=== PATIENT | female | born 1935 | race Caucasian/White ===

== ENCOUNTER 2019-11-03 09:59 | Inpatient (IN) | payer MEDICARE, MEDICAID ==
[~2019-11-03] VITALS: Ht 154.9 cm; Wt 90.7 kg
[2019-11-03] MEDS ORDERED: ACETAMINOPHEN ES 500 MG TABLET ONE (10:21)
--- NOTE | 2019-11-03 10:27 | NUR ---
[place]39, from home, generalized weakness, was in the bathroom and couldn't get up, BS 240. On room air, breathing evenly and unlabored. connected to the monitor and pulse ox. kept comfortable, will continue to monitor accordingly.
--- NOTE | 2019-11-03 10:28 | NUR ---
urine collected and sent to lab
[2019-11-03] MEDS ORDERED: ACETAMINOPHEN ES 500 MG TABLET PO ONE (10:30)
[2019-11-03] MEDS ORDERED: IV NS 0.9% 500 ML BAG IV ONE (10:30)
[2019-11-03 10:31] LABS: BASOPHILS % (AUTO) 0.1 % (0.0-2.0); HEMATOCRIT 38 % (33-45); HEMOGLOBIN 12.3 g/dL (11.5-14.8); LYMPHOCYTES # (AUTO) 0.5 /CMM (0.8-4.8); MEAN CORPUSCULAR HGB CONC 32 g/dl (31.0-36.0); MEAN CORPUSCULAR VOLUME 91 fL (82-100); MONOCYTES % (AUTO) 3.9 % (2.0-12.0); NEUTROPHILS # (AUTO) 24.9 /CMM (1.8-8.9); PLATELET COUNT (AUTO) 285 /CMM (150-450); RED BLOOD CELL COUNT(AUTO) 4.24 MIL/uL (4.0-5.2); WHITE BLOOD COUNT (AUTO) 26.5 K/uL (4.3-11.0)
[2019-11-03 10:35] LABS: CALCIUM, SERUM 9.8 mg/dL (8.5-10.1); CARBON DIOXIDE 24 mmol/L (21-32); CHLORIDE 98 mmol/L (98-107); CREATININE 1.3 mg/dL (0.6-1.3); GLUCOSE 329 mg/dL (74-106); SODIUM SERUM 135 mmol/L (136-145); UREA NITROGEN, BLOOD 28 mg/dL (7-18)
[2019-11-03 10:41] LABS: APPEARANCE,URINE Clear (CLEAR); BILIRUBIN,URINE Negative (NEGATIVE); BLOOD, URINE Large Ery/uL (NEGATIVE); COLOR,URINE Yellow (YELLOW); KETONES,URINE Negative (NEGATIVE); LEUKOCYTE ESTERASE ,URINE Negative (NEGATIVE); NITRITE, URINE Negative (NEGATIVE); PROTEIN,URINE >=300 mg/dl (NEGATIVE); UGLUCOSE 500 MG/DL mg/dL (NEGATIVE); UROBILINOGEN,URINE 0.2 EU/dL (0.2)
[2019-11-03] MEDS ORDERED: CELE-85 PO (10:45)
[2019-11-03] MEDS ORDERED: EZET10TA32 PO (10:45)
[2019-11-03] MEDS ORDERED: FAMO40TA7 PO (10:45)
[2019-11-03] MEDS ORDERED: MONT10TA22 PO (10:45)
[2019-11-03] MEDS ORDERED: ATOR40TA PO (10:45)
[2019-11-03] MEDS ORDERED: INSU100V7 SQ (10:45)
[2019-11-03] MEDS ORDERED: SPIR25TA6 PO (10:45)
[2019-11-03] MEDS ORDERED: COLC0.6T67 PO (10:45)
[2019-11-03] MEDS ORDERED: DICY20TA11 PO (10:45)
[2019-11-03] MEDS ORDERED: MECL-159 PO (10:45)
[2019-11-03] MEDS ORDERED: METO25TA4 PO (10:45)
[2019-11-03] MEDS ORDERED: INSU100I4 SQ (10:45)
[2019-11-03] MEDS ORDERED: OLME1TAB84 PO (10:45)
[2019-11-03] MEDS ORDERED: LIPA1CAP15 PO (10:45)
[2019-11-03] MEDS ORDERED: OMEG-72 PO (10:45)
[2019-11-03] MEDS ORDERED: LINA290C PO (10:45)
[2019-11-03] MEDS ORDERED: MYRBETRIQ PO (10:45)
[2019-11-03] MEDS ORDERED: ASPI-1152 PO (10:45)
[2019-11-03] MEDS ORDERED: FLUT1DIS3 INH (10:45)
[2019-11-03] MEDS ORDERED: OMEP1CAP25 PO (10:45)
[2019-11-03] MEDS ORDERED: GABA-534 PO (10:45)
[2019-11-03] MEDS ORDERED: ANAS1TAB8 PO (10:45)
[2019-11-03] MEDS ORDERED: MEMA10TA56 PO (10:45)
[2019-11-03] MEDS ORDERED: HYDR10SY16 PO (10:45)
[2019-11-03] MEDS ORDERED: HYDR-3980 PO (10:45)
[2019-11-03] MEDS ORDERED: LORA10TA7 PO (10:45)
[2019-11-03 10:47] LABS: BACTERIA,URINE Few /HPF (None Seen); SQUAMOUS EPITHELIAL CELL,UR Moderate /HPF (None Seen)
[2019-11-03 10:47] LABS: ALANINE AMINOTRANSFERASE 28 U/L (12-78); ALBUMIN 3.3 g/dL (3.4-5.0); ALKALINE PHOSPHATASE 88 U/L (46-116); ASPARTATE AMINOTRANSFERASE 40 U/L (15-37); BILIRUBIN,DIRECT 0.2 mg/dL (0.0-0.2); BILIRUBIN,TOTAL 1.1 mg/dL (0.2-1.0); TOTAL PROTEIN, SERUM 8.8 g/dL (6.4-8.2)
[2019-11-03] MEDS ORDERED: CEFTRIAXONE 1GM BAG (ER ONLY) 50 ML IV ONE ×2 (10:47→11:00)
--- NOTE | 2019-11-03 10:47 | NUR ---
PT IS GOING TO BED 307-1.
--- NOTE | 2019-11-03 11:29 | NUR ---
report given to Cash HUSAIN for sourav.
[2019-11-03] MEDS ORDERED: IV NS 0.9% 1,000 ML BAG IV ONE (11:30)
--- NOTE | 2019-11-03 12:57 | NUR ---
wheeled patient via gurney accompanied by RN and EMT in no distress. RN at bedside to assume care.
[2019-11-03] MEDS ORDERED: MAG HYDROX/AL HYDROX/SIMETH 30 ML UDC PO PRN (13:00)
[2019-11-03] MEDS ORDERED: hydrOXYzine HCL SYRUP 10 MG/5 ML UDC PO PRN (13:00)
[2019-11-03] MEDS ORDERED: DEXTROSE 50%-WATER 50 ML DISP.SYRIN IV PRN (13:00)
[2019-11-03] MEDS ORDERED: MORPHINE SULFATE INJ 2 MG/ML DISP.SYRIN IV PRN (13:00)
[2019-11-03] MEDS ORDERED: HYDROCODONE/APAP 5/325MG 1 EACH TABLET PO PRN (13:00)
[2019-11-03] MEDS ORDERED: ONDANSETRON HCL/PF 4 MG/2 ML VIAL IVP PRN (13:00)
[2019-11-03] MEDS ORDERED: MAGNESIUM HYDROXIDE 30 ML UDC PO PRN (13:00)
[2019-11-03] MEDS ORDERED: CLONIDINE HCL 0.1 MG TABLET PO PRN (13:00)
[2019-11-03] MEDS ORDERED: ZOLPIDEM TARTRATE 5 MG TABLET PO PRN (13:00)
--- NOTE | 2019-11-03 13:00 | NUR ---
RECEIVED PATIENT FROM ER VIA [facility] [employer]. PATIENT IS A/OX3, HEBREW SPEAKING. NOT IN ANY FORM OF DISTRESS. NO SOB. DENIED PAIN OR DISCOMFORT AT THIS TIME. IV ACCESS ON RIGHT AC GAUGE 18, INTACT AND PATENT. ON TELEMONITOR, ST 109 WITH PVC RUN. BELONGINGS CHECKED BY JIMMY WEI. SKIN ASSESSMENT DONE, SACRUM IS INTACT, BLE CELLULITIS NOTED. PATIENT HAS LEFT PARTIAL MASTECTOMY. RIGHT BREASTFOLD AND RIGHT ABDOMINALFOLD REDNESS. PATIENT HAS RIGHT ARTIFICIAL EYE. SITUATED PATIENT IN THE ROOM. FAMILY AT BEDSIDE. INSTRUCTED PATIENT TO CALL FOR ASSISTANCE. SKIN PHOTOS TAKEN. BED IN LOW/LOCKED POSITION, SIDERAILS UPX2, CALL LIGHT IN REACH. BED ALARM ON. WILL CONT TO MONITOR ACCORDINGLY
[2019-11-03 13:18] VITALS: BP 119/96
[2019-11-03] MEDS ORDERED: FEE PK DOSING 1 MIN EA MC ONE (13:28)
--- NOTE | 2019-11-03 13:51 | NUR ---
RN NOTES: FAMILY CONTACT TANK [phone] GRAND DAUGHTER LIANA [phone] SON
[2019-11-03] MEDS: BLOOD SUGAR DIAGNOSTIC 1 EACH STRIP VI SCH ×3 (13:55→22:21)
[2019-11-03] MEDS: IV NS 0.9% 1,000 ML IV PRN (14:25)
[2019-11-03] MEDS: ACETAMINOPHEN 325 MG TABLET PO PRN ×2 (14:45→21:27)
[2019-11-03] MEDS ORDERED: VANCOMYCIN 1.25 GM in IV D5W 250 ML IV SCH (15:00)
[2019-11-03 16:00] VITALS: BP 137/51
[2019-11-03] MEDS: COLCHICINE 0.6 MG TABLET PO SCH (17:04)
[2019-11-03] MEDS: MEMANTINE HCL 5 MG TABLET PO SCH (17:04)
[2019-11-03] MEDS: MECLIZINE HCL 25 MG TABLET PO SCH (17:04)
[2019-11-03] MEDS: Z GUARD REMEDY 2 OZ OINT TP PRN (17:07)
[2019-11-03] MEDS: INSULIN REGULAR, HUMAN 100 UNIT/ML 3 ML VIAL SQ PRN (17:19)
[2019-11-03] MEDS ORDERED: PIPERACILLIN /TAZOBACTAM 2.25 G in IV D5W 50 ML IV SCH (18:00)
[2019-11-03] MEDS ORDERED: PIPERACILLIN /TAZOBACTAM 3.375 G in IV D5W 50 ML IV SCH (18:00)
--- NOTE | 2019-11-03 18:17 | NUR ---
PRELIMINARY FINDING OF DUPLEX VENOUS SHOWED POSITIVE FOR DVT AT LEFT CFV. RN ADVISED.
--- NOTE | 2019-11-03 19:18 | NUR ---
RN OPENING NOTES 1917 RECEIVED PATIENT IN BED, AWAKE. FAMILY AT BED SIDE. A/O X 3. LIBERIAN SPEAKING. NO CURRENT DISTRESS, NO SOB AT THIS TIME. DENIES PAIN OR DISCOMFORT AT THIS TIME. IV ACCESS ON RIGHT AC GAUGE 18, INTACT AND PATENT, IVF INFUSING, NO INFECTION/INFILTRATION NOTED. ON TELEMONITOR, ST 101. SAFETY PRECAUTIONS IMPLEMENTED; CALL LIGHT WITHIN REACH, BED LOWEST POSITION, BED LOCKED, BILATERAL UPPER SIDE RAILS UP. WILL CONTINUE TO MONITOR.
--- NOTE | 2019-11-03 19:28 | NUR ---
RN CLOSING NOTES PATIENT IN STABLE CONDITION. NO SIGNIFICANT CHANGE OF CONDITION DURING THE SHIFT. ALL NEEDS ATTENDED AND PROVIDED. ALL DUE MEDS GIVEN ORDERED. KEPT PATIENT SAFE AND COMFORTABLE. BED IN LOW/LOCKED POSITION. SIDERAILS UPX2, CALL LIGHT IN REACH. ENDORSED TO NIGHT RN FOR PETE.
[2019-11-03 20:00] VITALS: BP 162/70
[2019-11-03] MEDS ORDERED: ENOXAPARIN SODIUM 30 MG/0.3 ML DISP.SYRIN SQ SCH (21:00)
[2019-11-03] MEDS ORDERED: ENOXAPARIN SODIUM 40 MG/0.4 ML DISP.SYRIN SQ SCH (21:00)
[2019-11-03] MEDS: METOPROLOL SUCCINATE 25 MG TAB.SR.24H PO SCH (21:34)
[2019-11-03] MEDS: MONTELUKAST SODIUM (10MG) 10 MG TABLET PO SCH (21:34)
[2019-11-03] MEDS: EZETIMIBE 10 MG TABLET PO SCH (21:34)
[2019-11-03] MEDS: FAMOTIDINE (20 MG) 20 MG TABLET PO SCH (21:35)
[2019-11-03] MEDS: GABAPENTIN 300 MG CAPSULE PO SCH (21:37)
[2019-11-03] MEDS: CEFEPIME 1 GM in IV D5W 50 ML IV SCH (21:49)
[2019-11-03] MEDS: *INSULIN REGULAR(HUMULIN R)HUM 100 UNIT/ML VIAL SQ PRN (22:26)
[2019-11-03] MEDS: ENOXAPARIN SODIUM 40 MG/0.4 ML DISP.SYRIN SQ SCH (23:01)
[2019-11-04] VITALS: BP 132/61
[2019-11-04 04:00] VITALS: BP 125/72
[2019-11-04] MEDS: IV NS 0.9% 1,000 ML IV PRN (04:01)
[2019-11-04] MEDS: *INSULIN REGULAR(HUMULIN R)HUM 100 UNIT/ML VIAL SQ PRN (06:33)
[2019-11-04 06:36] LABS: BASOPHILS % (AUTO) 0.2 % (0.0-2.0); HEMATOCRIT 35 % (33-45); HEMOGLOBIN 11.4 g/dL (11.5-14.8); LYMPHOCYTES # (AUTO) 1.2 /CMM (0.8-4.8); LYMPHOCYTES % (AUTO) 6.5 % (20.0-44.0); MEAN CORPUSCULAR HGB CONC 33 g/dl (31.0-36.0); MEAN CORPUSCULAR VOLUME 90 fL (82-100); MONOCYTES # (AUTO) 0.8 /CMM (0.1-1.30); MONOCYTES % (AUTO) 4.6 % (2.0-12.0); NEUTROPHILS # (AUTO) 15.7 /CMM (1.8-8.9); NEUTROPHILS % (AUTO) 88.7 % (43.0-81.0); PLATELET COUNT (AUTO) 224 /CMM (150-450); RED BLOOD CELL COUNT(AUTO) 3.88 MIL/uL (4.0-5.2); WHITE BLOOD COUNT (AUTO) 17.7 K/uL (4.3-11.0)
--- NOTE | 2019-11-04 06:53 | NUR ---
RN CLOSING NOTES PATIENT IS CURRENTLY ASLEEP, RESTING COMFORTABLY, EASILY AROUSABLE TO VOICE. PATIENT IN STABLE CONDITION. ALL DUE MEDICATIONS GIVEN ORDERED. ALL NEEDS ATTENDED AND PROVIDED. NO SIGNS OF FACIAL GRIMACING INDICATING PAIN OR DISCOMFORT AT THIS TIME. CURRENT TELEMONITOR READING SR 80. SAFETY PRECAUTIONS IMPLEMENTED; CALL LIGHT WITHIN REACH, BED LOWEST POSITION, BED LOCKED, BILATERAL UPPER SIDE RAILS UP. WILL CONTINUE TO MONITOR AND THEN WILL ENDORSE TO DAY SHIFT NURSE FOR CONTINUITY OF CARE.
[2019-11-04 07:05] LABS: THYROID STIMULATING HORMONE 1.025 uIU/mL (0.358-3.74)
[2019-11-04 07:10] LABS: ALBUMIN 2.4 g/dL (3.4-5.0); CALCIUM, SERUM 8.9 mg/dL (8.5-10.1); CREATININE 1.2 mg/dL (0.6-1.3); MAGNESIUM 1.7 mg/dL (1.8-2.4); PHOSPHORUS 2.7 mg/dL (2.5-4.9); POTASSIUM 4.2 mmol/L (3.5-5.1); TOTAL PROTEIN, SERUM 7.5 g/dL (6.4-8.2)
--- NOTE | 2019-11-04 07:11 | NUR ---
PIT FURNACE OPERATOR OPENING NOTE RECEIVED REPORT FROM [facility] SHIFT NURSE. PT AWAKE IN BED, ALERT AND ORIENTED X 1, NEPALESE SPEAKING, ON ROOM AIR, SATURATING WELL, RESPIRATIONS EVEN AND UNLABORED, NO SIGNS OF RESPIRATORY DISTRESS NOTED. ON TELE MONITOR SINUS RHYTHM HR 76. CID CATHETER INTACT, PATENT, DRAINING CLEAR YELLOW URINE. IV SITE ON RIGHT FOREARM G22 INTACT, PATENT, NS INFUSING 80CC/HR, NO SIGNS OF INFILTRATION NOTED. BED IN LOW POSITION, LOCKED, CALL LIGHT WITHIN REACH. INTRODUCED SELF TO PT AND DISCUSSED PLAN OF CARE.
[2019-11-04] MEDS: BLOOD SUGAR DIAGNOSTIC 1 EACH STRIP VI SCH ×4 (07:38→22:28)
[2019-11-04] MEDS: PANTOPRAZOLE 40 MG TABLET.DR PO SCH (07:38)
[2019-11-04 08:00] VITALS: BP 166/80
[2019-11-04] MEDS: MEMANTINE HCL 5 MG TABLET PO SCH ×2 (08:27→16:54)
[2019-11-04] MEDS: COLCHICINE 0.6 MG TABLET PO SCH ×2 (08:27→16:54)
[2019-11-04] MEDS: ATORVASTATIN 40 MG TABLET PO SCH (08:27)
[2019-11-04] MEDS: LOSARTAN POTASSIUM 50 MG TABLET PO SCH (08:27)
[2019-11-04] MEDS: MECLIZINE HCL 25 MG TABLET PO SCH ×2 (08:28→16:54)
[2019-11-04] MEDS: METOPROLOL SUCCINATE 25 MG TAB.SR.24H PO SCH ×2 (08:28→22:21)
[2019-11-04] MEDS: HYDROCHLOROTHIAZIDE 25 MG TABLET PO SCH (08:28)
[2019-11-04] MEDS: SPIRONOLACTONE 25 MG TABLET PO SCH (08:28)
[2019-11-04] MEDS: ACETAMINOPHEN 325 MG TABLET PO PRN ×2 (08:28→19:38)
--- NOTE | 2019-11-04 08:28 | NUR ---
Oral temperature 101.3 Administered Tylenol 650mg PO at 08:28, cooling measured initiated.
[2019-11-04] MEDS: ANASTROZOLE 1 MG TABLET PO SCH (08:29)
[2019-11-04] MEDS: ASPIRIN EC 81 MG TABLET.DR PO SCH (08:35)
[2019-11-04] MEDS: ENOXAPARIN SODIUM 40 MG/0.4 ML DISP.SYRIN SQ SCH ×2 (08:35→22:20)
[2019-11-04] MEDS: CEFEPIME 1 GM in IV D5W 50 ML IV SCH ×2 (08:47→22:18)
[2019-11-04] MEDS: FLUTICASONE/VILANTEROL 1 EACH BLST.W.DEV IH SCH (08:47)
[2019-11-04] MEDS: INSULIN GLARGINE, 100 UNIT/ML CARTRIDGE SQ SCH (08:51)
[2019-11-04] MEDS ORDERED: Linaclotide (Linzess) 290 MG PO SCH (09:00)
[2019-11-04] MEDS: Magnesium 1GM/D5W 100ML PREMIX 100 ML IV SCH ×2 (09:24→10:36)
--- NOTE | 2019-11-04 10:39 | NUR ---
WOUND CARE CONSULT: PT PRESENTS WITH REDNESS AND RASHES TO BREASTFOLDS, ABDOMINAL/GROIN FOLDS, REDNESS WITH EDEMA TO LOWER LEGS AND WOUNDS TO RT LOWER LEG, PRESENT ON ADMISSION. DR REYNOLDS AWARE OF DPM CONSULT REQUEST. RECOMMENDATIONS MADE FOR SKIN PROTECTION AND CARE. DISCUSSED WITH NURSING STAFF. DEFER TO DPM FOR LOWER EXTREMITIES. WILL SEE PRN. RODRIGUEZ IN AGREEMENT WITH PLAN OF CARE. PT ON [facility] BED. Addendum: 11/04/19 at 1041 by MARGARET BENOIT WNDNU Amended: Links added.
[2019-11-04] MEDS: FERROUS SULFATE (325 MG) 325 MG/TAB TABLET PO SCH ×2 (11:45→16:54)
[2019-11-04] MEDS: INSULIN REGULAR, HUMAN 100 UNIT/ML 3 ML VIAL SQ PRN ×2 (11:54→17:26)
[2019-11-04] MEDS: VANCOMYCIN 1 GM in IV D5W 250 ML IV SCH (15:15)
[2019-11-04 16:00] VITALS: BP 146/90
[2019-11-04] MEDS: CLOTRIMAZOLE 1% 15 GM TUBE TP SCH (17:14)
--- NOTE | 2019-11-04 18:25 | NUR ---
MS RN CLOSING NOTE PT AWAKE IN BED, ALERT AND ORIENTED X 4, SOMALI SPEAKING, ON 02 VIA NC 3L/MIN, SATURATING WELL, RESPIRATIONS EVEN AND UNLABORED, NO SIGNS OF RESPIRATORY DISTRESS NOTED. CID CATHETER INTACT, PATENT, DRAINING CLEAR YELLOW URINE. IV SITE ON RIGHT FOREARM G22 INTACT, PATENT, NS INFUSING 80CC/HR, NO SIGNS OF INFILTRATION NOTED. BED IN LOW POSITION, LOCKED, CALL LIGHT WITHIN REACH. PROVIDED SAFETY AND COMFORT TO PT THROUGHOUT SHIFT, ALL DUE MEDS GIVEN. WILL ENDORSE TO NOC SHIFT NURSE.
--- NOTE | 2019-11-04 19:48 | NUR ---
MS/RN OPENING NOTES RECEIVED PATIENT IN BED, HOB ELEVATED, ON OXYGEN VIA NC AT 3 LITER, INSTRUCTED, NOT TO REMOVE PATIENT OBSERVE HAVING FAST RESPIRATIONS, TEMPERATURE CHECK BY [facility]AIL PH[employer]Y TECHNICIAN ELEVATED OVER 100 DEG F, KEPT ROOM COOL AND PROVIDED COOLING MEASURES, TYLENO 650 MG PO GIVEN WITH APPLE SAUCE. WILL MONITOR .PATIENT WITH BLE CELLULITIS REF AND INFLAMED, WITH S/P DEBRIDEMENT ON LEFT 4TH TOE. CID DRAINING URINE. ON CARDIAC DIET REQUIRE TURNING AND REPOSITION. RFA GAUGE 22 WITH IV NS INFUSIN AT 80 CC/HR. ON IV ANTIBIOTIC THERAPY.
[2019-11-04 20:00] VITALS: BP 126/56
[2019-11-04 20:52] VITALS: BP 120/60
[2019-11-04] MEDS: FAMOTIDINE (20 MG) 20 MG TABLET PO SCH (22:19)
[2019-11-04] MEDS: MONTELUKAST SODIUM (10MG) 10 MG TABLET PO SCH (22:19)
[2019-11-04] MEDS: GABAPENTIN 300 MG CAPSULE PO SCH (22:20)
[2019-11-04] MEDS: EZETIMIBE 10 MG TABLET PO SCH (22:20)
--- NOTE | 2019-11-04 22:31 | NUR ---
temp 98.7 deg f
--- NOTE | 2019-11-05 03:08 | NUR ---
MS/RN NOTES RECEIVED ORDER FROM DR. WRIGHT FOR ALBUTEROL INHALER FOR PATIENT WITH WHEEZING AND DISCOMFORT. RT WAS MADE AWARE. WILL MONITOR.
[2019-11-05] MEDS ORDERED: ALBUTEROL FS 2.5 MG/0.5 ML VIAL.NEB NEB PRN (03:30)
[2019-11-05] MEDS: BLOOD SUGAR DIAGNOSTIC 1 EACH STRIP VI SCH ×4 (05:56→22:31)
[2019-11-05 06:54] LABS: BASOPHILS % (AUTO) 0.4 % (0.0-2.0); EOSINOPHILS % (AUTO) 1.8 % (0.0-6.0); HEMATOCRIT 31 % (33-45); HEMOGLOBIN 10.2 g/dL (11.5-14.8); LYMPHOCYTES # (AUTO) 1.6 /CMM (0.8-4.8); LYMPHOCYTES % (AUTO) 11.9 % (20.0-44.0); MEAN CORPUSCULAR HGB CONC 33 g/dl (31.0-36.0); MEAN CORPUSCULAR VOLUME 89 fL (82-100); MONOCYTES # (AUTO) 0.9 /CMM (0.1-1.30); NEUTROPHILS # (AUTO) 10.6 /CMM (1.8-8.9); NEUTROPHILS % (AUTO) 78.9 % (43.0-81.0); PLATELET COUNT (AUTO) 190 /CMM (150-450); RED BLOOD CELL COUNT(AUTO) 3.47 MIL/uL (4.0-5.2); WHITE BLOOD COUNT (AUTO) 13.5 K/uL (4.3-11.0)
--- NOTE | 2019-11-05 06:58 | NUR ---
MS/RN CLOSING NOTES PATIENT IN BED, HOB ELEVATE, ON OXYGEN VIA NASAL CANULAAT 2 LITER, PATIENT WITH NEEDED BREATHING TX FOR WHEEZING. SKIN WARM TO TOUCH. NO GRIMACE OR GUARDING, KEPT COMFORTABLE AND WARM, IV FLUIDS TO HOLD PATIENT HAVE NOTED WHEEZING MD AWARE, EDEMA ON BUE AND BLE. REQUIRE EXTENSIVE ASSISTANCE FOR SAFETY. WILL ENDORSE TO AM RN FOR PETE.
[2019-11-05 07:06] LABS: CALCIUM, SERUM 8.4 mg/dL (8.5-10.1); CREATININE 1.3 mg/dL (0.6-1.3); POTASSIUM 3.5 mmol/L (3.5-5.1)
[2019-11-05 08:00] VITALS: BP 131/82
[2019-11-05] MEDS: INSULIN GLARGINE, 100 UNIT/ML CARTRIDGE SQ SCH (10:36)
[2019-11-05] MEDS: ENOXAPARIN SODIUM 40 MG/0.4 ML DISP.SYRIN SQ SCH ×2 (10:44→20:33)
[2019-11-05] MEDS: FLUTICASONE/VILANTEROL 1 EACH BLST.W.DEV IH SCH (10:53)
[2019-11-05] MEDS: ATORVASTATIN 40 MG TABLET PO SCH (10:53)
[2019-11-05] MEDS: ASPIRIN EC 81 MG TABLET.DR PO SCH (10:54)
[2019-11-05] MEDS: METOPROLOL SUCCINATE 25 MG TAB.SR.24H PO SCH ×2 (10:54→20:32)
[2019-11-05] MEDS: FERROUS SULFATE (325 MG) 325 MG/TAB TABLET PO SCH ×2 (10:54→18:14)
[2019-11-05] MEDS: HYDROCHLOROTHIAZIDE 25 MG TABLET PO SCH (10:55)
[2019-11-05] MEDS: COLCHICINE 0.6 MG TABLET PO SCH ×2 (10:56→18:14)
[2019-11-05] MEDS: PANTOPRAZOLE 40 MG TABLET.DR PO SCH (10:56)
[2019-11-05] MEDS: ZINC SULFATE 220 MG CAPSULE PO SCH (10:56)
[2019-11-05] MEDS: ANASTROZOLE 1 MG TABLET PO SCH (10:56)
[2019-11-05] MEDS ORDERED: FUROSEMIDE 20 MG/2 ML VIAL IV ONE ×2 (11:00→11:30)
[2019-11-05] MEDS: MECLIZINE HCL 25 MG TABLET PO SCH ×2 (11:17→18:14)
[2019-11-05] MEDS: MEMANTINE HCL 5 MG TABLET PO SCH ×2 (11:17→18:14)
[2019-11-05] MEDS: IV NS 0.9% 1,000 ML IV PRN (11:29)
[2019-11-05] MEDS ORDERED: FUROSEMIDE 40 MG/4 ML VIAL IV ONE (11:30)
[2019-11-05] MEDS: CEFEPIME 1 GM in IV D5W 50 ML IV SCH ×2 (11:30→20:26)
[2019-11-05] MEDS: Z GUARD REMEDY 2 OZ OINT TP PRN (11:45)
[2019-11-05] MEDS: CLOTRIMAZOLE 1% 15 GM TUBE TP SCH ×2 (11:45→18:48)
--- NOTE | 2019-11-05 12:00 | NUR ---
per ju[facility] pharmacist,lasix 40 mg ordered instead of the 20 mg.so only 40 mg. given
[2019-11-05] MEDS: *INSULIN REGULAR(HUMULIN R)HUM 100 UNIT/ML VIAL SQ PRN ×3 (13:05→22:43)
--- NOTE | 2019-11-05 14:00 | NUR ---
pt. pulled out iv rt wrist,new start rt. forearm #20.
[2019-11-05] MEDS: SPIRONOLACTONE 25 MG TABLET PO SCH (15:00)
[2019-11-05 16:00] VITALS: BP 128/51
[2019-11-05] MEDS: VANCOMYCIN 1 GM in IV D5W 250 ML IV SCH (16:47)
[2019-11-05] MEDS: MUPIROCIN OINT 2% 22 GM TUBE TP SCH (17:07)
[2019-11-05] MEDS: LOSARTAN POTASSIUM 50 MG TABLET PO SCH (17:08)
[2019-11-05] MEDS ORDERED: FLUCONAZOLE (100 MG) 100 MG TABLET PO SCH (18:00)
--- NOTE | 2019-11-05 18:00 | NUR ---
Monika DOMINGUEZ FIRE BEHAVIOR ANALYST WELL BRANT CABRAL NURSE IN TO SEE PT. .PT. SEEMS BETTER AFTER LASIX IV,NIECE IN TO VISIT.
--- NOTE | 2019-11-05 19:30 | NUR ---
MS RN NOTES RECEIVED ON BED A/O X3,SCOTTISH SPEAKING,WITH LITTLE MAORI.NOTED ARTIFICIAL RIGHT EYE.S/P EXCISIONAL DEBRIDEMENT OF BLE CELLULITIS,OPEN TO AIR,ELEVATED ON PILLOWS BOTH FEET.IVF NS AT 80ML/HR RATE INFUSING ON RIGHT FOREARM,SITE PATENT.CID CATH IN PLACE DRAINING CLEAR YELLOW OUTPUT.CALL LIGHT IN REACH,NEEDS ANTICIPATED.
[2019-11-05 20:00] VITALS: BP 133/61
[2019-11-05] MEDS: FAMOTIDINE (20 MG) 20 MG TABLET PO SCH (22:30)
[2019-11-05] MEDS: EZETIMIBE 10 MG TABLET PO SCH (22:30)
[2019-11-05] MEDS: GABAPENTIN 300 MG CAPSULE PO SCH (22:30)
[2019-11-05] MEDS: MONTELUKAST SODIUM (10MG) 10 MG TABLET PO SCH (22:30)
--- NOTE | 2019-11-05 22:30 | NUR ---
MS RN NOTES ACCU-CHECK BLOOD SUGAR CHECK 132,COVERED WITH HUMULIN R 2 UNITS PER MODERATE SLIDING SCALE,SNACKS PROVIDED AT BEDSIDE.
--- NOTE | 2019-11-06 05:16 | NUR ---
MS RN NOTES C/O PAIN 6-7/10 ON PAIN SCALE VIA LEFT FOOT,MEDICATED WITH NORCO 5/325MG,1 TAB PO GIVEN WITH APPLE SAUCE,TAKEN WELL.NEGATIVE FOR ASPIRATION
--- NOTE | 2019-11-06 05:44 | NUR ---
MS RN NOTES ACCU-CHECK BLOOD SUGAR CHECK 101,NO INSULIN COVERAGE.
[2019-11-06] MEDS: BLOOD SUGAR DIAGNOSTIC 1 EACH STRIP VI SCH ×4 (05:51→21:14)
--- NOTE | 2019-11-06 06:19 | NUR ---
MS RN NOTES FAIRLY RESTED,WITH SLIGHT WHEEZING NOTED,IVF HOLD FOR AWHILE.PAIN MANAGEMENT EFFECTIVE.IN NO ACUTE DISTRESS.BILATERAL FOOT REMAINS SWOLLEN AND WITH REDNESS NOTED, ELEVATED ON PILLOWS.WILL ENDORSE TO DAY NURSE FOR PETE.
[2019-11-06 06:26] LABS: BASOPHILS % (AUTO) 0.3 % (0.0-2.0); EOSINOPHILS % (AUTO) 3.8 % (0.0-6.0); HEMATOCRIT 31 % (33-45); HEMOGLOBIN 10.3 g/dL (11.5-14.8); LYMPHOCYTES # (AUTO) 1.8 /CMM (0.8-4.8); LYMPHOCYTES % (AUTO) 19.1 % (20.0-44.0); MEAN CORPUSCULAR HGB CONC 33 g/dl (31.0-36.0); MEAN CORPUSCULAR VOLUME 89 fL (82-100); NEUTROPHILS # (AUTO) 6.5 /CMM (1.8-8.9); NEUTROPHILS % (AUTO) 66.8 % (43.0-81.0); PLATELET COUNT (AUTO) 209 /CMM (150-450); RED BLOOD CELL COUNT(AUTO) 3.52 MIL/uL (4.0-5.2); WHITE BLOOD COUNT (AUTO) 9.7 K/uL (4.3-11.0)
[2019-11-06 06:27] LABS: CALCIUM, SERUM 8.7 mg/dL (8.5-10.1); CREATININE 1.2 mg/dL (0.6-1.3); POTASSIUM 4.2 mmol/L (3.5-5.1)
--- NOTE | 2019-11-06 07:35 | NUR ---
MS RN NOTES RECEIVED PATIENT IN BED SLEEPING, AROUSED WHEN NAME CALLED. NO SOB OR DISCOMFORT NOTED AT THIS TIME. PER HAZARDOUS MATERIALS HANDLER NURSE IV FLUID STOPPED. CALL LIGHT WITHIN REACH. BED AT THE LOWEST POSITION. WILL CONTINUE TO MONITOR PATIENT.
[2019-11-06 08:00] VITALS: BP 107/51
[2019-11-06] MEDS ORDERED: FUROSEMIDE 20 MG/2 ML VIAL IV ONE (08:30)
[2019-11-06] MEDS: CEFEPIME 1 GM in IV D5W 50 ML IV SCH ×2 (08:43→21:08)
[2019-11-06] MEDS: PANTOPRAZOLE 40 MG TABLET.DR PO SCH (08:52)
[2019-11-06] MEDS: FLUTICASONE/VILANTEROL 1 EACH BLST.W.DEV IH SCH (08:53)
[2019-11-06] MEDS: SPIRONOLACTONE 25 MG TABLET PO SCH (08:55)
[2019-11-06] MEDS: ANASTROZOLE 1 MG TABLET PO SCH (08:56)
[2019-11-06] MEDS: MECLIZINE HCL 25 MG TABLET PO SCH ×2 (08:57→16:50)
[2019-11-06] MEDS: ASPIRIN EC 81 MG TABLET.DR PO SCH (08:58)
[2019-11-06] MEDS: COLCHICINE 0.6 MG TABLET PO SCH ×2 (08:59→16:50)
[2019-11-06] MEDS: HYDROCHLOROTHIAZIDE 25 MG TABLET PO SCH (09:00)
[2019-11-06] MEDS: LOSARTAN POTASSIUM 50 MG TABLET PO SCH (09:00)
[2019-11-06] MEDS: FERROUS SULFATE (325 MG) 325 MG/TAB TABLET PO SCH ×2 (09:01→16:50)
[2019-11-06] MEDS: ATORVASTATIN 40 MG TABLET PO SCH (09:02)
[2019-11-06] MEDS: MEMANTINE HCL 5 MG TABLET PO SCH ×2 (09:04→16:50)
[2019-11-06] MEDS: ZINC SULFATE 220 MG CAPSULE PO SCH (09:04)
[2019-11-06] MEDS: MUPIROCIN OINT 2% 22 GM TUBE TP SCH (09:05)
[2019-11-06] MEDS: Z GUARD REMEDY 2 OZ OINT TP PRN (09:05)
[2019-11-06] MEDS: INSULIN GLARGINE, 100 UNIT/ML CARTRIDGE SQ SCH (09:51)
[2019-11-06] MEDS: ENOXAPARIN SODIUM 40 MG/0.4 ML DISP.SYRIN SQ SCH (09:52)
[2019-11-06] MEDS: METOPROLOL SUCCINATE 25 MG TAB.SR.24H PO SCH ×2 (09:59→21:09)
[2019-11-06] MEDS: CLOTRIMAZOLE 1% 15 GM TUBE TP SCH ×2 (10:00→16:51)
[2019-11-06] MEDS: FUROSEMIDE 40 MG/4 ML VIAL IV SCH ×3 (12:35→19:35)
[2019-11-06] MEDS: RIVAROXABAN 15 MG TABLET PO SCH ×2 (12:44→19:36)
[2019-11-06] MEDS: INSULIN REGULAR, HUMAN 100 UNIT/ML 3 ML VIAL SQ PRN ×2 (12:54→17:30)
[2019-11-06 16:00] VITALS: BP 124/66
[2019-11-06] MEDS: VANCOMYCIN 1 GM in IV D5W 250 ML IV SCH (16:01)
[2019-11-06] MEDS: ACETAMINOPHEN 325 MG TABLET PO PRN ×2 (16:21→22:26)
--- NOTE | 2019-11-06 19:30 | NUR ---
MS RN NOTES PATIENT IN BED A/OX4 SPEAKS KOREAN/ENGLISH. NO PAIN OR SOB NOTED AT THIS TIME. ALL NEEDS ATTENDED. BED AT THE LOWEST POSITION LOCKED, CALL LIGHT WITHIN REACH. ENDORSED TO TITLE CURATOR NURSE FOR PETE.
[2019-11-06 20:00] VITALS: BP 132/49
[2019-11-06 20:01] VITALS: BP 132/49
[2019-11-06] MEDS: MONTELUKAST SODIUM (10MG) 10 MG TABLET PO SCH (21:10)
[2019-11-06] MEDS: GABAPENTIN 300 MG CAPSULE PO SCH (21:10)
[2019-11-06] MEDS: FAMOTIDINE (20 MG) 20 MG TABLET PO SCH (21:10)
[2019-11-06] MEDS: EZETIMIBE 10 MG TABLET PO SCH (21:10)
[2019-11-06] MEDS: VORICONAZOLE 200 MG TABLET PO SCH (21:10)
[2019-11-06] MEDS: *INSULIN REGULAR(HUMULIN R)HUM 100 UNIT/ML VIAL SQ PRN (21:44)
--- NOTE | 2019-11-06 22:26 | NUR ---
rn ms notes patient complaint of pain to ble , based on mendoza fernandez scale noted 5/10. patient requesting for pain medication , pt prefers tylenol. tylenol prn given and patient repositioned, will cont to monitor.
[2019-11-07] MEDS: BLOOD SUGAR DIAGNOSTIC 1 EACH STRIP VI SCH ×4 (06:00→22:33)
[2019-11-07] MEDS: INSULIN REGULAR, HUMAN 100 UNIT/ML 3 ML VIAL SQ PRN ×3 (06:03→17:25)
--- NOTE | 2019-11-07 06:21 | NUR ---
RN MS CLOSING NOTES PATIENT IN BED AWAKE ALERT AND ORIENTED X3-4, RESPIRATIONS EVEN AND UNLABORED WITH EQUAL RISE AND FALL OF CHEST, DENIES ANY PAIN OR DISCOMFORT AT THIS TIME, TYLENOL WAS EFFECTIVE FOR BLE PAIN. SLEPT WELL THROUGHOUT THE NIGHT. ON 2 L VIA NC TOLERATING WELL, CID CATHETER INTACT AND DRAINING, IV SITE TO RIGHT FA SL INTACT AND PATENT, NO REDNESS, NO INFILTRATION PRESENT, ALL DUE MEDS GIVEN ORDERED, NO ADVERSE REACTIONS PRESENT, CALL LIGHT KEPT WITHIN REACH, SAFETY PRECAUTIONS RENDERED, LOW BED AND LOCKED,BED ALARM FOR SAFETY ALL NEEDS ATTENDED AT THIS TIME, FLUIDS OFFERED THROUGHOUT SHIFT, WILL CONTINUE TO MONITOR AND ATTEND TO NEEDS AND ENDORSE TO NEXT SHIFT, REPOSITIONED Q2HR AND OFFLOADED BLE AND AFFECTED WOUND SITES. REMAINS COMFORTABLE AT THIS TIME, NO INSULIN NEEDED IN AM PER SLIDING SCALE.
[2019-11-07 06:24] LABS: BASOPHILS # (AUTO) 0.1 /CMM (0.0-0.2); BASOPHILS % (AUTO) 0.6 % (0.0-2.0); EOSINOPHILS % (AUTO) 4.8 % (0.0-6.0); HEMATOCRIT 33 % (33-45); LYMPHOCYTES # (AUTO) 1.3 /CMM (0.8-4.8); LYMPHOCYTES % (AUTO) 14.5 % (20.0-44.0); MEAN CORPUSCULAR HGB CONC 33 g/dl (31.0-36.0); MEAN CORPUSCULAR VOLUME 88 fL (82-100); MONOCYTES # (AUTO) 0.7 /CMM (0.1-1.30); MONOCYTES % (AUTO) 7.1 % (2.0-12.0); NEUTROPHILS # (AUTO) 6.7 /CMM (1.8-8.9); PLATELET COUNT (AUTO) 245 /CMM (150-450); WHITE BLOOD COUNT (AUTO) 9.1 K/uL (4.3-11.0)
[2019-11-07 07:01] LABS: CREATININE 1.3 mg/dL (0.6-1.3); MAGNESIUM 1.7 mg/dL (1.8-2.4); PHOSPHORUS 3.7 mg/dL (2.5-4.9); POTASSIUM 3.4 mmol/L (3.5-5.1)
[2019-11-07] MEDS ORDERED: FUROSEMIDE 20 MG/2 ML VIAL IV ONE ×2 (07:30→17:00)
[2019-11-07 08:00] VITALS: BP 125/55
[2019-11-07] MEDS ORDERED: MAGNESIUM OXIDE 400 MG TABLET PO ONE (08:00)
[2019-11-07] MEDS ORDERED: POTASSIUM CHLORIDE 20 MEQ TAB.PRT.SR PO ONE (08:00)
--- NOTE | 2019-11-07 08:00 | NUR ---
MS RN NOTES PATIENT IN BED RESTING NO SOB OR ACUTE DISTRESS NOTED. PATIENT WITH CID CATH. INTACT DRAINING YELLOW URIN. PATIENT VIETNAMESE/FINNISH SPEAKING. DENIES ANY PAIN. PERIPHERAL IV INTACT PATENT. BED IN LOW LOCKED POSITION. CALL LIGHT WITHIN REACH. DR. GOLDSTEIN AT BEDSIDE. WILL CONTINUE TO MONITOR.
[2019-11-07] MEDS: COLCHICINE 0.6 MG TABLET PO SCH ×2 (08:12→16:58)
[2019-11-07] MEDS: MEMANTINE HCL 5 MG TABLET PO SCH ×2 (08:12→16:58)
[2019-11-07] MEDS: MECLIZINE HCL 25 MG TABLET PO SCH ×2 (08:12→16:58)
[2019-11-07] MEDS: FERROUS SULFATE (325 MG) 325 MG/TAB TABLET PO SCH ×2 (08:12→16:58)
[2019-11-07] MEDS: PANTOPRAZOLE 40 MG TABLET.DR PO SCH (08:12)
[2019-11-07] MEDS: ASPIRIN EC 81 MG TABLET.DR PO SCH (08:12)
[2019-11-07] MEDS: METOPROLOL SUCCINATE 25 MG TAB.SR.24H PO SCH ×2 (08:13→21:59)
[2019-11-07] MEDS: ZINC SULFATE 220 MG CAPSULE PO SCH (08:13)
[2019-11-07] MEDS: RIVAROXABAN 15 MG TABLET PO SCH ×2 (08:16→16:59)
[2019-11-07] MEDS: ANASTROZOLE 1 MG TABLET PO SCH (08:23)
[2019-11-07] MEDS: VORICONAZOLE 200 MG TABLET PO SCH ×2 (08:24→21:59)
[2019-11-07] MEDS: FLUTICASONE/VILANTEROL 1 EACH BLST.W.DEV IH SCH (08:24)
[2019-11-07] MEDS: MUPIROCIN OINT 2% 22 GM TUBE TP SCH (08:36)
[2019-11-07] MEDS: CLOTRIMAZOLE 1% 15 GM TUBE TP SCH ×2 (08:36→17:03)
[2019-11-07] MEDS: CEFEPIME 1 GM in IV D5W 50 ML IV SCH ×2 (08:46→21:57)
[2019-11-07] MEDS: LOSARTAN POTASSIUM 50 MG TABLET PO SCH (08:46)
[2019-11-07] MEDS: SPIRONOLACTONE 25 MG TABLET PO SCH (08:46)
[2019-11-07] MEDS: HYDROCHLOROTHIAZIDE 25 MG TABLET PO SCH (08:47)
[2019-11-07] MEDS: INSULIN GLARGINE, 100 UNIT/ML CARTRIDGE SQ SCH (08:50)
[2019-11-07 09:18] LABS: BAND % (MANUAL) 2 % (0.0-5.0); EOSINOPHILS % (MANUAL) 3 % (0-4); LYMPHOCYTES % (MANUAL) 12 % (16-48); MONOCYTES % (MANUAL) 6 % (0-11.0); MYELOCYTES % 1 % (0-0); NEUTROPHILS % (MANUAL) 76 (42-76)
[2019-11-07] MEDS: ACETAMINOPHEN 325 MG TABLET PO PRN (10:57)
[2019-11-07] MEDS: VANCOMYCIN 1 GM in IV D5W 250 ML IV SCH (15:37)
[2019-11-07 16:00] VITALS: BP 149/69
--- NOTE | 2019-11-07 18:59 | NUR ---
MS RN NOTES PATIENT IN BED RESTING NO SOB OR ACUTE DISTRESS NOTED. ALL DUE MEDICATIONS PROVIDED. ALL NEEDS MET. NO ACUTE CHANGES NOTED DURING AM SHIFT. PATIENT WAS SEEN BY PT. TOLERATED WELL. PERIPHERAL IV INTACT PATENT. WILL ENDORSE CARE TO PM SHIFT.
--- NOTE | 2019-11-07 19:00 | NUR ---
RN MS OPENING NOTES RECEIVED PATIENT IN BED AWAKE ALERT AND ORIENTED X3-4, RESPIRATIONS EVEN AND UNLABORED WITH EQUAL RISE AND FALL OF CHEST, DENIES ANY PAIN OR DISCOMFORT AT THIS TIME, ON 2 L VIA NC TOLERATING WELL, CID CATHETER INTACT AND DRAINING, IV SITE TO RIGHT FA SL INTACT AND PATENT, NO REDNESS, NO INFILTRATION PRESENT, ORIENTED TO STAFF AND CALL LIGHT AND KEPT WITHIN REACH, SAFETY PRECAUTIONS RENDERED, LOW BED AND LOCKED,BED ALARM FOR SAFETY ALL NEEDS ATTENDED AT THIS TIME, FLUIDS OFFERED WILL CONTINUE TO MONITOR AND ATTEND TO NEEDS. bed side commode offered.
[2019-11-07 20:00] VITALS: BP_SYST 114; BP_SYST 153; BP_DIAS 65; BP_DIAS 76
--- NOTE | 2019-11-07 20:39 | NUR ---
rn ms notes patient sat up in commode unable to have bowel movement patient states " only have had very small one" requesting for medication to aid in moving bowels, prune juice offered and milk of magnesia offered and given, will continue to monitor for effectiveness.
[2019-11-07] MEDS: EZETIMIBE 10 MG TABLET PO SCH (21:59)
[2019-11-07] MEDS: GABAPENTIN 300 MG CAPSULE PO SCH (21:59)
[2019-11-07] MEDS: MONTELUKAST SODIUM (10MG) 10 MG TABLET PO SCH (21:59)
[2019-11-07] MEDS: FAMOTIDINE (20 MG) 20 MG TABLET PO SCH (21:59)
[2019-11-07] MEDS: *INSULIN REGULAR(HUMULIN R)HUM 100 UNIT/ML VIAL SQ PRN (22:35)
[2019-11-08] MEDS: PANTOPRAZOLE 40 MG TABLET.DR PO SCH (07:30)
[2019-11-08] MEDS: BLOOD SUGAR DIAGNOSTIC 1 EACH STRIP VI SCH ×3 (07:30→18:05)
[2019-11-08 07:54] LABS: CALCIUM, SERUM 8.8 mg/dL (8.5-10.1); CREATININE 1.1 mg/dL (0.6-1.3); POTASSIUM 3.9 mmol/L (3.5-5.1)
[2019-11-08 08:00] VITALS: BP 145/63
--- NOTE | 2019-11-08 08:20 | NUR ---
ms rn received patient ,on bed, awake,alert,oriented x3,not in any form of distress, respirations even and unlabored, no sob noted, lungs are diminished,abdomen soft,positive bowel sounds,denies pain at this time,all needs attended.
[2019-11-08 09:02] LABS: BASOPHILS # (AUTO) 0.2 /CMM (0.0-0.2); BASOPHILS % (AUTO) 1.2 % (0.0-2.0); HEMATOCRIT 34 % (33-45); HEMOGLOBIN 11.2 g/dL (11.5-14.8); LYMPHOCYTES # (AUTO) 1.8 /CMM (0.8-4.8); LYMPHOCYTES % (AUTO) 11.5 % (20.0-44.0); MEAN CORPUSCULAR HGB CONC 33 g/dl (31.0-36.0); MEAN CORPUSCULAR VOLUME 88 fL (82-100); MONOCYTES # (AUTO) 1.2 /CMM (0.1-1.30); NEUTROPHILS % (AUTO) 77.3 % (43.0-81.0); PLATELET COUNT (AUTO) 275 /CMM (150-450); RED BLOOD CELL COUNT(AUTO) 3.85 MIL/uL (4.0-5.2); WHITE BLOOD COUNT (AUTO) 15.6 K/uL (4.3-11.0)
[2019-11-08] MEDS ORDERED: FUROSEMIDE 20 MG/2 ML VIAL IV ONE (09:30)
--- NOTE | 2019-11-08 09:30 | NUR ---
ms biggs breakfast served,due meds given,tolerated well.
[2019-11-08] MEDS: CEFEPIME 1 GM in IV D5W 50 ML IV SCH (10:03)
[2019-11-08] MEDS: FLUTICASONE/VILANTEROL 1 EACH BLST.W.DEV IH SCH (10:03)
[2019-11-08] MEDS: SPIRONOLACTONE 25 MG TABLET PO SCH (10:04)
[2019-11-08] MEDS: ANASTROZOLE 1 MG TABLET PO SCH (10:05)
[2019-11-08] MEDS: MECLIZINE HCL 25 MG TABLET PO SCH ×2 (10:05→18:04)
[2019-11-08] MEDS: COLCHICINE 0.6 MG TABLET PO SCH ×2 (10:06→18:04)
[2019-11-08] MEDS: ASPIRIN EC 81 MG TABLET.DR PO SCH (10:06)
[2019-11-08] MEDS: LOSARTAN POTASSIUM 50 MG TABLET PO SCH (10:07)
[2019-11-08] MEDS: FERROUS SULFATE (325 MG) 325 MG/TAB TABLET PO SCH ×2 (10:07→18:04)
[2019-11-08] MEDS: HYDROCHLOROTHIAZIDE 25 MG TABLET PO SCH (10:07)
[2019-11-08] MEDS: MEMANTINE HCL 5 MG TABLET PO SCH ×2 (10:08→18:04)
[2019-11-08] MEDS: METOPROLOL SUCCINATE 25 MG TAB.SR.24H PO SCH (10:09)
[2019-11-08] MEDS: VORICONAZOLE 200 MG TABLET PO SCH (10:09)
[2019-11-08] MEDS: ZINC SULFATE 220 MG CAPSULE PO SCH (10:09)
[2019-11-08] MEDS: RIVAROXABAN 15 MG TABLET PO SCH ×2 (10:11→18:05)
[2019-11-08] MEDS: INSULIN GLARGINE, 100 UNIT/ML CARTRIDGE SQ SCH (10:13)
--- NOTE | 2019-11-08 11:20 | NUR ---
ms biggs was seen by dr. art cuevas/ orders made and carried out.
[2019-11-08] MEDS: INSULIN REGULAR, HUMAN 100 UNIT/ML 3 ML VIAL SQ PRN ×2 (13:02→18:09)
[2019-11-08 13:18] LABS: ABG BASE EXCESS 3.1 mmol/L; ABG OXYGEN SATURATION 92.1 % (92.0-98.5); ABG PCO2 33.8 mmHg (35.0-45.0); ABG PH 7.503 (7.350-7.450); AaDO2 46.3 mmHg; COHb 0.9 % (0.5-1.5); MetHb 0.3 % (0.0-1.5); SITE, ABG Right Brachial; VENT MODE, BG ROOM AIR
[2019-11-08] MEDS: MUPIROCIN OINT 2% 22 GM TUBE TP SCH (13:51)
[2019-11-08] MEDS: CLOTRIMAZOLE 1% 15 GM TUBE TP SCH ×2 (13:51→18:06)
[2019-11-08] MEDS: VANCOMYCIN 1 GM in IV D5W 250 ML IV SCH (15:36)
[2019-11-08 16:01] VITALS: BP 123/60
--- NOTE | 2019-11-08 16:06 | NUR ---
ms rn patient will be discharge today at [facility].
--- NOTE | 2019-11-08 16:07 | NUR ---
ms rn on bed, no distress noted.
[2019-11-08 19:30] VITALS: BP 133/60
--- NOTE | 2019-11-08 20:00 | NUR ---
MS RN NOTE: PATIENT READY FOR DISCHARGE TO [facility], EMT ARRIVE FOR [facility]. REPORT AND DISCHARGE PAPERWORK GIVEN TO EMT. PATIENT TO BE DISCHARGED WITH MIDLINE TO DAYSI AND CID CATHETER. REPORT GIVEN TO [facility] TO [facility] DURING DAYSHIFT. VITAL SIGNS STABLE, BELONGING WITH PATIENT. PATIENT OFF FLOOR IN STABLE CONDITION.
== END 2019-11-08 19:55 | DRG 853 ==
LOC: ER 10:06 → TELE 12:31 → MED 11-04 07:37
PROVIDERS: ADMIT Nurse Practitioner Acute Care
PROC: 0JBR0ZZ Excision of Left Foot Subcutaneous Tissue and Fascia, Open Approach (ICD-10-PCS; principal; 2019-11-03)
DX: A41.9 Sepsis, unspecified organism (principal); N17.0 Acute kidney failure with tubular necrosis; I50.33 Acute on chronic diastolic (congestive) heart failure; I82.412 Acute embolism and thrombosis of left femoral vein; D68.59 Other primary thrombophilia; E44.1 Mild protein-calorie malnutrition; E87.1 Hypo-osmolality and hyponatremia; L03.115 Cellulitis of right lower limb; L03.116 Cellulitis of left lower limb; B37.49 Other urogenital candidiasis; I13.0 Hypertensive heart and chronic kidney disease with heart failure and stage 1 through stage 4 chronic kidney disease, or unspecified chronic kidney disease; E10.22 Type 1 diabetes mellitus with diabetic chronic kidney disease; E10.42 Type 1 diabetes mellitus with diabetic polyneuropathy; E10.622 Type 1 diabetes mellitus with other skin ulcer; R65.20 Severe sepsis without septic shock; C50.919 Malignant neoplasm of unspecified site of unspecified female breast; I11.0 Hypertensive heart disease with heart failure; E78.5 Hyperlipidemia, unspecified; E83.42 Hypomagnesemia; E86.9 Volume depletion, unspecified; F03.90 Unspecified dementia, unspecified severity, without behavioral disturbance, psychotic disturbance, mood disturbance, and anxiety; K21.9 Gastro-esophageal reflux disease without esophagitis; L97.529 Non-pressure chronic ulcer of other part of left foot with unspecified severity; M20.42 Other hammer toe(s) (acquired), left foot; M20.41 Other hammer toe(s) (acquired), right foot; M10.9 Gout, unspecified; Z79.82 Long term (current) use of aspirin; Z79.899 Other long term (current) drug therapy; Z90.12 Acquired absence of left breast and nipple; Z86.718 Personal history of other venous thrombosis and embolism; Z85.3 Personal history of malignant neoplasm of breast; Z79.811 Long term (current) use of aromatase inhibitors; Z79.51 Long term (current) use of inhaled steroids; Z74.09 Other reduced mobility; M62.84 Sarcopenia; N18.9 Chronic kidney disease, unspecified; R09.02 Hypoxemia; Z79.4 Long term (current) use of insulin
CPT/HCPCS: 36415; 36600; 71045-TC; 73630-TC; 80048-TC; 80053-TC; 80061-TC; 80076-TC; 80202-TC; 81000-TC; 82962-TC; 83540-TC; 83605-TC; 83735-TC; 83880; 84100-TC; 84443-TC; 84484-TC; 85025-TC; 85730-TC; 87040-TC; 87070-TC; 87081-TC; 87086-TC; 87186-TC; 93307-TC; 93970-TC; 97110-TC; 97116-TC; 97530-TC; A6403; G0378; J0692; J0696; J1650; J1815; J1940; J2543; J3370; J3475; J7030; J7050; J7060; J8597; Q0177

== ENCOUNTER 2020-01-20 15:28 | Inpatient (IN) | payer MEDICARE, MEDICAID ==
[~2020-01-20] VITALS: Ht 149.9 cm; Wt 89.8 kg
[~2020-01-20 15:28] MED LIST: ANAS1TAB8 PO; ASPI-1152 PO; ATOR40TA PO; CELE-85 PO; COLC0.6T67 PO; DICY20TA11 PO; EZET10TA32 PO; FAMO40TA7 PO; FLUT1DIS3 INH; GABA-534 PO; HYDR-3980 PO; HYDR10SY16 PO; INSU100I4 SQ; INSU100V7 SQ; LINA290C PO; LIPA1CAP15 PO; LORA10TA7 PO; MECL-159 PO; MEMA10TA56 PO; METO25TA4 PO; MONT10TA22 PO; MYRBETRIQ PO; OLME1TAB84 PO; OMEG-72 PO; OMEP1CAP25 PO; SPIR25TA6 PO
--- NOTE | 2020-01-20 15:30 | NUR ---
PT BIB FAMILY TO ER BED 01, PRESENTS W/ BLE SWELLING PAIN AND DISCHARGE WORST THE PAST 2 DAYS. DENIES FEVER. STABLE VITALS. AWAITING MD MCARTHUR.
--- NOTE | 2020-01-20 15:54 | NUR ---
DR CUELLO AT BEDSIDE FOR EVAL.
[2020-01-20] MEDS ORDERED: PIPERACILLIN /TAZOBACTAM 3.375 G in IV D5W 50 ML IV ONE (16:00)
[2020-01-20] MEDS ORDERED: VANCOMYCIN 1 GM in IV D5W 250 ML IV ONE (16:00)
[2020-01-20 16:11] LABS: BASOPHILS % (AUTO) 0.4 % (0.0-2.0); EOSINOPHILS % (AUTO) 4.6 % (0.0-6.0); HEMATOCRIT 34 % (33-45); HEMOGLOBIN 11.1 g/dL (11.5-14.8); LYMPHOCYTES # (AUTO) 2.5 /CMM (0.8-4.8); LYMPHOCYTES % (AUTO) 24.8 % (20.0-44.0); MEAN CORPUSCULAR HGB CONC 33 g/dl (31.0-36.0); MEAN CORPUSCULAR VOLUME 89 fL (82-100); MONOCYTES # (AUTO) 0.6 /CMM (0.1-1.30); NEUTROPHILS # (AUTO) 6.6 /CMM (1.8-8.9); NEUTROPHILS % (AUTO) 64.2 % (43.0-81.0); PLATELET COUNT (AUTO) 270 /CMM (150-450); RED BLOOD CELL COUNT(AUTO) 3.83 MIL/uL (4.0-5.2); WHITE BLOOD COUNT (AUTO) 10.3 K/uL (4.3-11.0)
[2020-01-20] MEDS ORDERED: SITA1TAB2 PO (16:31)
[2020-01-20] MEDS ORDERED: FURO-144 PO (16:31)
[2020-01-20] MEDS ORDERED: CLOT15CR5 TP (16:31)
[2020-01-20] MEDS ORDERED: GLYB5TAB7 PO (16:31)
[2020-01-20 16:34] LABS: CALCIUM, SERUM 9.3 mg/dL (8.5-10.1); CARBON DIOXIDE 26 mmol/L (21-32); CHLORIDE 101 mmol/L (98-107); CREATININE 1.3 mg/dL (0.6-1.3); GLUCOSE 207 mg/dL (74-106); POTASSIUM 4.1 mmol/L (3.5-5.1); SODIUM SERUM 137 mmol/L (136-145); UREA NITROGEN, BLOOD 41 mg/dL (7-18)
[2020-01-20] MEDS ORDERED: ERGO500014 PO (16:39)
[2020-01-20] MEDS ORDERED: DULA1.5P SQ (16:39)
[2020-01-20 16:46] LABS: ALANINE AMINOTRANSFERASE 15 U/L (12-78); ALBUMIN 3.2 g/dL (3.4-5.0); ALKALINE PHOSPHATASE 90 U/L (46-116); ASPARTATE AMINOTRANSFERASE 16 U/L (15-37); B-TYPE NATRIURETIC PEPTIDE 123 PG/ML (0-125); BILIRUBIN,DIRECT 0.1 mg/dL (0.0-0.2); BILIRUBIN,TOTAL 0.4 mg/dL (0.2-1.0); TOTAL PROTEIN, SERUM 7.8 g/dL (6.4-8.2)
--- NOTE | 2020-01-20 17:08 | NUR ---
NURSING SUPP CALLED FOR M/S BED.
--- NOTE | 2020-01-20 17:33 | NUR ---
TURNED IN MOVE SHEET
--- NOTE | 2020-01-20 17:35 | NUR ---
MED-SURGE 114-1
--- NOTE | 2020-01-20 17:59 | NUR ---
REPORT GIVEN TO SARI HUSAIN. AWAITING TRANSFER TO FLOOR.
[2020-01-20] MEDS ORDERED: DICYCLOMINE HCL 10 MG CAPSULE PO PRN (18:30)
[2020-01-20] MEDS ORDERED: MAG HYDROX/AL HYDROX/SIMETH 30 ML UDC PO PRN (18:30)
[2020-01-20] MEDS ORDERED: DEXTROSE 50%-WATER 50 ML DISP.SYRIN IV PRN (18:30)
[2020-01-20] MEDS ORDERED: MAGNESIUM HYDROXIDE 30 ML UDC PO PRN (18:30)
[2020-01-20] MEDS ORDERED: HYDROCODONE/APAP 5/325MG 1 EACH TABLET PO PRN (18:30)
[2020-01-20] MEDS ORDERED: Z GUARD REMEDY 2 OZ OINT TP PRN (18:30)
[2020-01-20] MEDS ORDERED: ONDANSETRON HCL/PF 4 MG/2 ML VIAL IVP PRN (18:30)
[2020-01-20] MEDS ORDERED: FUROSEMIDE 20 MG/2 ML VIAL IV ONE (18:30)
[2020-01-20] MEDS ORDERED: MORPHINE SULFATE INJ 2 MG/ML DISP.SYRIN IV PRN (18:30)
[2020-01-20] MEDS ORDERED: hydrOXYzine 10 MG TABLET PO PRN (18:30)
[2020-01-20] MEDS ORDERED: ACETAMINOPHEN 325 MG TABLET PO PRN (18:30)
[2020-01-20] MEDS ORDERED: ZOLPIDEM TARTRATE 5 MG TABLET PO PRN (18:30)
[2020-01-20] MEDS ORDERED: HYDROCODONE/APAP 10/325MG 1 EA TABLET PO PRN (18:30)
--- NOTE | 2020-01-20 18:30 | NUR ---
MS/RN NOTES RECEIVED PATIENT FROM ER. PATIENT IS ALERT AND ORIENTED X4, TAJIK SPEAKING. NO PAIN OR ACUTE DISTRESS AT THIS TIME. RESPIRATION EVEN AND UNLABORED. SKIN IS DRY WARM TO TOUCH. PATIENT WAS TRANSFERRED TO BED. PATIENT NOTED WITH RAC #20G. INTACT AND PATENT. FLUSHING WELL. NO S/S OF INFECTION OR INFILTRATION. PATIENT ABLE TO TOLERATE MEDS WELL. ALL NEEDS ANTICIPATED. CALL LIGHT WITHIN REACHED. BED LOCKED AND IN LOWEST POSITION. SAFETY MAINTAINED. WILL CONTINUE TO MONITOR CLOSELY. ENDORSED TO PM NURSE FOR PETE AND FOR THE REST OF THE ADMISSION.
[2020-01-20 18:34] VITALS: BP 139/65
[2020-01-20] MEDS ORDERED: FEE PK DOSING 1 MIN EA MC ONE (18:37)
[2020-01-20 20:00] VITALS: BP 129/59
--- NOTE | 2020-01-20 20:00 | NUR ---
RN NOTES ADMITTED PATIENT FROM ED. ALERT AND ORIENTED X3, FROM HOME, ON ROOM AIR, COMPLAINING OF BLE FEET PAIN OF 5/10, BOTH FEET SWOLLEN, LEFT FOOT HAS CELLULITIS, DX OF CELLULITIS AND PNEUMONIA. ON AUSCULTATION, LUNG SOUNDS ARE CLEAR, ABDOMEN OBESE AND ROUNDED, ACTIVE BOWEL SOUNDS, SOB ON EXERTION, SKIN REMAINED INTACT, SKIN MOIST WITH VERY SCANT DRAINAGE, PHOTO TAKEN, WOUND CONSULT ORDERED. DIFFICULTY AMBULATING, REQUIRES 2 PERSONS ASSIST TO TRANSFER FROM BED TO CHAIR. WAS GIVEN LASIX SHORTLY AFTER ARRIVING IN UNIT, JUAN C.
[2020-01-20] MEDS ORDERED: Medication Not On Formulary EA (Omega-3 Acid Ethyl Esters 1 GM) PO SCH (21:00)
[2020-01-20] MEDS: GABAPENTIN 300 MG CAPSULE PO SCH (21:22)
[2020-01-20] MEDS: ENOXAPARIN SODIUM 30 MG/0.3 ML DISP.SYRIN SQ SCH (21:22)
[2020-01-20] MEDS: BLOOD SUGAR DIAGNOSTIC 1 EACH STRIP IN SCH (21:22)
[2020-01-20] MEDS: INSULIN REGULAR, HUMAN 100 UNIT/ML 3 ML VIAL SQ PRN (21:40)
--- NOTE | 2020-01-20 22:56 | NUR ---
NOTIFIED BY LAB OF RECENT LACTIC ACID OF 2.3. REPORTED RESULT TO DR. EVANS WITH NEW ORDER OF NS AT 75 ML/HR, PATIENT RECEIVED VANCOMYCIN AND ZOSYN FROM ED, ZOSYN TO CONTINUE ON ADMISSION
[2020-01-20] MEDS ORDERED: PIPERACILLIN /TAZOBACTAM 3.375 G VIAL IV ONE (23:02)
[2020-01-20] MEDS: IV NS 0.9% 1,000 ML BAG IV PRN (23:14)
[2020-01-20] MEDS: PIPERACILLIN /TAZOBACTAM 3.375 G in IV D5W 50 ML IV SCH (23:15)
[2020-01-21] MEDS ORDERED: PIPERACILLIN /TAZOBACTAM 3.375 G VIAL IV ONE (03:56)
[2020-01-21 05:00] VITALS: BP 113/54
[2020-01-21] MEDS: PIPERACILLIN /TAZOBACTAM 3.375 G in IV D5W 50 ML IV SCH ×4 (05:31→23:48)
--- NOTE | 2020-01-21 06:39 | NUR ---
RN NOTES PATIENT ALERT AND ORIENTED X4, ROOM AIR, VSS, INCONTINENT OF URINE, LEFT LEG CELLULITIS AND PNA, ZOSYN, NS AT 75 ML/HR, FOLLOW UP LACTIC ACID RESULT.
[2020-01-21 06:54] LABS: BASOPHILS % (AUTO) 0.4 % (0.0-2.0); EOSINOPHILS % (AUTO) 5.8 % (0.0-6.0); HEMATOCRIT 30 % (33-45); HEMOGLOBIN 10.4 g/dL (11.5-14.8); LYMPHOCYTES # (AUTO) 2.8 /CMM (0.8-4.8); LYMPHOCYTES % (AUTO) 30.7 % (20.0-44.0); MEAN CORPUSCULAR HGB CONC 34 g/dl (31.0-36.0); MEAN CORPUSCULAR VOLUME 87 fL (82-100); MONOCYTES # (AUTO) 0.7 /CMM (0.1-1.30); MONOCYTES % (AUTO) 7.5 % (2.0-12.0); NEUTROPHILS # (AUTO) 5.1 /CMM (1.8-8.9); NEUTROPHILS % (AUTO) 55.6 % (43.0-81.0); PLATELET COUNT (AUTO) 232 /CMM (150-450); RED BLOOD CELL COUNT(AUTO) 3.49 MIL/uL (4.0-5.2); WHITE BLOOD COUNT (AUTO) 9.2 K/uL (4.3-11.0)
--- NOTE | 2020-01-21 07:30 | NUR ---
RN OPENING NOTE: RECEIVED PATIENT RESTING IN BED THIS MORNING. PATIENT IS ALERT X3, RESPONDS APPROPRIATELY, ICELANDIC SPEAKING MAINLY. PATIENT ON RA, SATING WELL, NO C/O SOB EXCEPT UPON EXERTION, NO RESPIRATORY DISTRESS NOTED. BLE EDEMA, NON-PITTING W/ L FOOT CELLULITIS. LUNG SOUNDS CLEAR BILATERALLY. SKIN INTACT, ONLY REDNESS NOTED ON GROIN AND UNDER ABDOMINAL FOLD. NO C/O PAIN. SAFETY MEASURES IMPLEMENTED, BED IN LOWEST POSITION, LOCKED, SIDE RAILS UP X2, CALL LIGHT WITHIN REACH. WILL CONTINUE TO MONITOR PATIENT FOR ANY CHANGES. Addendum: 01/21/20 at 1051 by KETURAH CASTANO RN #20 RAC, FLUSHING WELL, C/D/I, NO SIGNS OF COMPLICATIONS NOTED
[2020-01-21 08:00] VITALS: BP 129/51
[2020-01-21 08:06] LABS: ALANINE AMINOTRANSFERASE 6 U/L (12-78); ALBUMIN 2.6 g/dL (3.4-5.0); ALKALINE PHOSPHATASE 68 U/L (46-116); ASPARTATE AMINOTRANSFERASE 14 U/L (15-37); BILIRUBIN,TOTAL 0.7 mg/dL (0.2-1.0); CALCIUM, SERUM 8.8 mg/dL (8.5-10.1); CARBON DIOXIDE 25 mmol/L (21-32); CHLORIDE 103 mmol/L (98-107); CREATININE 1.4 mg/dL (0.6-1.3); GLUCOSE 139 mg/dL (74-106); MAGNESIUM 1.7 mg/dL (1.8-2.4); PHOSPHORUS 3.8 mg/dL (2.5-4.9); SODIUM SERUM 138 mmol/L (136-145); TOTAL PROTEIN, SERUM 6.8 g/dL (6.4-8.2); UREA NITROGEN, BLOOD 39 mg/dL (7-18)
[2020-01-21] MEDS: FLUTICASONE/VILANTEROL 1 EACH BLST.W.DEV IH SCH (08:11)
[2020-01-21] MEDS: PANTOPRAZOLE 40 MG TABLET.DR PO SCH (08:12)
[2020-01-21] MEDS: COLCHICINE 0.6 MG TABLET PO SCH ×2 (08:12→16:12)
[2020-01-21] MEDS: LINAGLIPTIN 5 MG TABLET PO SCH (08:12)
[2020-01-21] MEDS: ASPIRIN EC 81 MG TABLET.DR PO SCH (08:12)
[2020-01-21] MEDS: SODIUM BICARBONATE 650 MG TABLET PO SCH (08:12)
[2020-01-21] MEDS: glyBURIDE 5 MG TABLET PO SCH ×2 (08:12→16:11)
[2020-01-21] MEDS: CELECOXIB 100 MG CAPSULE PO SCH ×2 (08:12→16:12)
[2020-01-21] MEDS: LOSARTAN POTASSIUM 50 MG TABLET PO SCH (08:13)
[2020-01-21] MEDS: LORATADINE 10 MG TABLET PO SCH (08:13)
[2020-01-21] MEDS: MEMANTINE HCL 5 MG TABLET PO SCH ×2 (08:13→16:12)
[2020-01-21] MEDS: EZETIMIBE 10 MG TABLET PO SCH (08:13)
[2020-01-21] MEDS: MONTELUKAST SODIUM (10MG) 10 MG TABLET PO SCH (08:13)
[2020-01-21] MEDS: BLOOD SUGAR DIAGNOSTIC 1 EACH STRIP IN SCH ×4 (08:13→21:19)
[2020-01-21] MEDS: ATORVASTATIN 40 MG TABLET PO SCH (08:14)
[2020-01-21] MEDS: HYDROCHLOROTHIAZIDE 25 MG TABLET PO SCH (08:14)
[2020-01-21] MEDS: FUROSEMIDE 40 MG TABLET PO SCH (08:15)
[2020-01-21] MEDS: METOPROLOL SUCCINATE 25 MG TAB.SR.24H PO SCH ×2 (08:15→16:12)
[2020-01-21] MEDS: ANASTROZOLE 1 MG TABLET PO SCH (08:15)
[2020-01-21] MEDS: INSULIN GLARGINE, 100 UNIT/ML CARTRIDGE SQ SCH (08:17)
[2020-01-21] MEDS ORDERED: METFORMIN 500 MG TABLET PO SCH (09:00)
[2020-01-21] MEDS ORDERED: MYRBETRIQ 25 MG PO SCH (09:00)
[2020-01-21] MEDS ORDERED: Medication Not On Formulary EA (Olmesartan/Hydrochlorothiazide (Olmesartan-Hctz 40-12.5 PO SCH (09:00)
[2020-01-21] MEDS ORDERED: LINZESS 290 MCG PO SCH (09:00)
[2020-01-21] MEDS ORDERED: Medication Not On Formulary EA (Omeprazole/Sodium Bicarbonate (Omeprazole-Bicarb 40-1,10 PO SCH (09:00)
--- NOTE | 2020-01-21 10:13 | NUR ---
HILDA AWARE OF PATIENT'S LACTIC ACID OF 2.3, NNO AT THIS TIME, AWAITING ID CONSULT
[2020-01-21] MEDS: Magnesium 1GM/D5W 100ML PREMIX 100 ML IV SCH ×2 (10:16→11:22)
[2020-01-21] MEDS: INSULIN REGULAR, HUMAN 100 UNIT/ML 3 ML VIAL SQ PRN ×2 (12:19→21:21)
[2020-01-21 16:00] VITALS: BP 103/44
--- NOTE | 2020-01-21 16:00 | NUR ---
PATIENT STATED THAT SHE HAS HER LINVESS AND MYRBETRIA AT HOME BUT DOES NOT WANT TO BRING IT HERE. STATES SHE WILL RESUME THOSE MEDS WHEN SHE GETS DC.
[2020-01-21] MEDS: IV NS 0.9% 1,000 ML BAG IV PRN (16:25)
[2020-01-21] MEDS ORDERED: VANCOMYCIN 1 GM in IV D5W 250 ML IV SCH (18:00)
--- NOTE | 2020-01-21 19:05 | NUR ---
RN CLOSING NOTE: PATIENT IS RESTING IN BED. PATIENT IS ALERT X3, RESPONDS APPROPRIATELY, KISWAHILI SPEAKING MAINLY. PATIENT ON RA, SATING WELL, NO C/O SOB EXCEPT UPON EXERTION, NO RESPIRATORY DISTRESS NOTED. BLE EDEMA, NON-PITTING W/ L FOOT CELLULITIS. LUNG SOUNDS CLEAR BILATERALLY. #20 RAC, FLUSHING WELL, C/D/I, NO SIGNS OF COMPLICATIONS NOTED. SAFETY MEASURES IMPLEMENTED, BED IN LOWEST POSITION, LOCKED, SIDE RAILS UP X2, CALL LIGHT WITHIN REACH. WILL ENDORSE TO FOLLOWING SHIFT FOR CONTINUITY OF CARE.
--- NOTE | 2020-01-21 19:10 | NUR ---
RN OPENING NOTE: RECEIVED PATIENT RESTING IN BED THIS MORNING. PATIENT IS ALERT X3, RESPONDS APPROPRIATELY, SYRIAC SPEAKING MAINLY. PATIENT ON SAT >92% , NO RESPIRATORY DISTRESS NOTED. BLE EDEMA, NON-PITTING W/ L FOOT CELLULITIS. LUNG SOUNDS CLEAR BILATERALLY. SKIN INTACT, ONLY REDNESS NOTED ON GROIN AND UNDER ABDOMINAL FOLD. NO PAIN NOTED . SAFETY MEASURES IMPLEMENTED, BED IN LOWEST POSITION, LOCKED, SIDE RAILS UP X2, CALL LIGHT WITHIN REACH. WILL CONTINUE TO MONITOR PATIENT FOR ANY CHANGES.
[2020-01-21 20:00] VITALS: BP 103/60
[2020-01-21] MEDS: GABAPENTIN 300 MG CAPSULE PO SCH (21:17)
[2020-01-21] MEDS: ENOXAPARIN SODIUM 30 MG/0.3 ML DISP.SYRIN SQ SCH (21:19)
[2020-01-22] VITALS: BP 110/64
[2020-01-22] MEDS: PIPERACILLIN /TAZOBACTAM 3.375 G in IV D5W 50 ML IV SCH ×2 (05:30→12:04)
--- NOTE | 2020-01-22 07:18 | NUR ---
RN CLOSING NOTE: PATIENT RESTING IN BED THIS MORNING. PATIENT IS ALERT X3, RESPONDS APPROPRIATELY, KISWAHILI SPEAKING MAINLY. PATIENT ON SAT >92% , NO RESPIRATORY DISTRESS NOTED. BLE EDEMA, NON-PITTING W/ L FOOT CELLULITIS. REDNESS GROIN AND UNDER ABDOMINAL FOLD STILL NOTED . NO PAIN NOTED ALL NEEDS ATTENDED . SAFETY MEASURES IMPLEMENTED, BED IN LOWEST POSITION, LOCKED, SIDE RAILS UP X2, CALL LIGHT WITHIN REACH. WILL ENDORSE TO AM SHIFT NURSE
[2020-01-22 08:00] VITALS: BP 136/64
[2020-01-22 08:15] LABS: BASOPHILS # (AUTO) 0.1 /CMM (0.0-0.2); BASOPHILS % (AUTO) 0.5 % (0.0-2.0); EOSINOPHILS % (AUTO) 5.8 % (0.0-6.0); HEMATOCRIT 32 % (33-45); HEMOGLOBIN 10.7 g/dL (11.5-14.8); LYMPHOCYTES # (AUTO) 2.7 /CMM (0.8-4.8); LYMPHOCYTES % (AUTO) 29.4 % (20.0-44.0); MEAN CORPUSCULAR HGB CONC 33 g/dl (31.0-36.0); MEAN CORPUSCULAR VOLUME 88 fL (82-100); MONOCYTES # (AUTO) 0.6 /CMM (0.1-1.30); MONOCYTES % (AUTO) 6.8 % (2.0-12.0); NEUTROPHILS # (AUTO) 5.3 /CMM (1.8-8.9); NEUTROPHILS % (AUTO) 57.5 % (43.0-81.0); PLATELET COUNT (AUTO) 230 /CMM (150-450); WHITE BLOOD COUNT (AUTO) 9.2 K/uL (4.3-11.0)
[2020-01-22] MEDS: BLOOD SUGAR DIAGNOSTIC 1 EACH STRIP IN SCH ×4 (08:15→21:32)
[2020-01-22 08:38] LABS: CALCIUM, SERUM 8.2 mg/dL (8.5-10.1); CARBON DIOXIDE 25 mmol/L (21-32); CHLORIDE 104 mmol/L (98-107); CREATININE 1.4 mg/dL (0.6-1.3); GLUCOSE 149 mg/dL (74-106); MAGNESIUM 1.9 mg/dL (1.8-2.4); POTASSIUM 3.8 mmol/L (3.5-5.1); SODIUM SERUM 139 mmol/L (136-145); UREA NITROGEN, BLOOD 38 mg/dL (7-18)
[2020-01-22] MEDS: FLUTICASONE/VILANTEROL 1 EACH BLST.W.DEV IH SCH (09:00)
[2020-01-22] MEDS: ASPIRIN EC 81 MG TABLET.DR PO SCH (09:00)
[2020-01-22] MEDS: LORATADINE 10 MG TABLET PO SCH (09:00)
[2020-01-22] MEDS: SODIUM BICARBONATE 650 MG TABLET PO SCH (09:48)
[2020-01-22] MEDS: CELECOXIB 100 MG CAPSULE PO SCH ×2 (09:49→16:49)
[2020-01-22] MEDS: METOPROLOL SUCCINATE 25 MG TAB.SR.24H PO SCH ×2 (09:49→16:49)
[2020-01-22] MEDS: PANTOPRAZOLE 40 MG TABLET.DR PO SCH (09:49)
[2020-01-22] MEDS: EZETIMIBE 10 MG TABLET PO SCH (09:50)
[2020-01-22] MEDS: ATORVASTATIN 40 MG TABLET PO SCH (09:50)
[2020-01-22] MEDS: MEMANTINE HCL 5 MG TABLET PO SCH ×2 (09:50→16:49)
[2020-01-22] MEDS: glyBURIDE 5 MG TABLET PO SCH ×2 (09:51→16:50)
[2020-01-22] MEDS: MONTELUKAST SODIUM (10MG) 10 MG TABLET PO SCH (09:51)
[2020-01-22] MEDS: HYDROCHLOROTHIAZIDE 25 MG TABLET PO SCH (09:51)
[2020-01-22] MEDS: LINAGLIPTIN 5 MG TABLET PO SCH (09:52)
[2020-01-22] MEDS: COLCHICINE 0.6 MG TABLET PO SCH ×2 (09:52→16:49)
[2020-01-22] MEDS: FUROSEMIDE 40 MG TABLET PO SCH (09:52)
[2020-01-22] MEDS: LOSARTAN POTASSIUM 50 MG TABLET PO SCH (09:53)
[2020-01-22] MEDS: INSULIN GLARGINE, 100 UNIT/ML CARTRIDGE SQ SCH (09:57)
[2020-01-22] MEDS: INSULIN REGULAR, HUMAN 100 UNIT/ML 3 ML VIAL SQ PRN ×4 (09:58→21:33)
[2020-01-22] MEDS: ANASTROZOLE 1 MG TABLET PO SCH (10:09)
--- NOTE | 2020-01-22 10:57 | NUR ---
alert, oriented, appropriate, vision impaired in one eye, the R one, able to get out of bed, using walker, to bathroom, standby assistance. both legs, scaly, puffy, denied pain. sputum cx ordered, did not enough cough
[2020-01-22 16:00] VITALS: BP_SYST 108; BP_SYST 136; BP_DIAS 57; BP_DIAS 66
--- NOTE | 2020-01-22 16:11 | NUR ---
PT walked with the patient from her room to the end of hallway, with 4 point walker, slow but steady. Skin intact except both lower ext , some oozage on pillows, other than that no open areas noted. no complaint of pain, on double abx- ZOSYN and VANCO ivpb., Vanco T this 5p, oncoming shift made aware to watch for result before it is given
[2020-01-22] MEDS: CEFAZOLIN 2 GM in IV D5W 100 ML IV SCH (17:35)
--- NOTE | 2020-01-22 19:35 | NUR ---
MS RN OPENING NOTES RECEIVED PATIENT FROM MORNING SHIFT, ALERT AND ORIENTED X 3. BREATHING REGULAR AND UNLABORED ON ROOM AIR. RIGHT AC G20 IV LINE INTACT AND PATENT, INFUSING WELL WITH NO BLEEDING OR S/S OF INFILTRATION NOTED. BODY ASSESSMENT DONE, SEEN WITH PERINEAL GROIN REDNESS AND LLE CELLULITIS. NO COMPLAINTS OF PAIN/DISCOMFORT REPORTED OF THE TIME. BED LOW AND LOCKED ON SEMI FOWLERS POSITION. CALL LIGHT IN REACH. BED ALARM ON. WILL CONTINUE TO MONITOR.
[2020-01-22] MEDS ORDERED: CEFAZOLIN 1 GM VIAL IM SCH (21:00)
[2020-01-22] MEDS: GABAPENTIN 300 MG CAPSULE PO SCH (21:05)
[2020-01-22] MEDS: ENOXAPARIN SODIUM 30 MG/0.3 ML DISP.SYRIN SQ SCH (21:06)
--- NOTE | 2020-01-22 22:00 | NUR ---
MS RN NOTES BS 211mg/dl, 4UNITS REGULAR INSULIN GIVEN SQ. SNACKS PROVIDED ON BEDSIDE. WILL CONTINUE TO MONITOR.
[2020-01-22] MEDS: IV NS 0.9% 1,000 ML BAG IV PRN (23:49)
[2020-01-23] VITALS: BP 106/60
[2020-01-23] MEDS: CEFAZOLIN 2 GM in IV D5W 100 ML IV SCH ×3 (01:37→17:42)
--- NOTE | 2020-01-23 06:20 | NUR ---
MS RN CLOSING NOTES PATIENT IN BED ALERT AND ORIENTED X 3. BREATHING REGULAR AND UNLABORED ON ROOM AIR. RIGHT AC G20 IV LINE PATENT AND INFUSING WELL. NO COMPLAINTS OF PAIN/DISCOMFORT REPORTED THE WHOLE SHIFT. BED LOW AND LOCKED ON SEMI FOWLERS POSITION. CALL LIGHT IN REACH. WILL ENDORSE TO MORNING SHIFT FOR PETE.
[2020-01-23 07:04] LABS: BASOPHILS % (AUTO) 0.4 % (0.0-2.0); EOSINOPHILS % (AUTO) 6.4 % (0.0-6.0); HEMATOCRIT 31 % (33-45); HEMOGLOBIN 10.6 g/dL (11.5-14.8); LYMPHOCYTES # (AUTO) 3.1 /CMM (0.8-4.8); LYMPHOCYTES % (AUTO) 31.6 % (20.0-44.0); MEAN CORPUSCULAR HGB CONC 34 g/dl (31.0-36.0); MEAN CORPUSCULAR VOLUME 88 fL (82-100); MONOCYTES # (AUTO) 0.8 /CMM (0.1-1.30); MONOCYTES % (AUTO) 8.5 % (2.0-12.0); NEUTROPHILS # (AUTO) 5.3 /CMM (1.8-8.9); NEUTROPHILS % (AUTO) 53.1 % (43.0-81.0); PLATELET COUNT (AUTO) 239 /CMM (150-450); RED BLOOD CELL COUNT(AUTO) 3.59 MIL/uL (4.0-5.2)
[2020-01-23 07:28] LABS: CALCIUM, SERUM 8.7 mg/dL (8.5-10.1); CHLORIDE 105 mmol/L (98-107); CREATININE 1.4 mg/dL (0.6-1.3); GLUCOSE 109 mg/dL (74-106); POTASSIUM 3.8 mmol/L (3.5-5.1); SODIUM SERUM 141 mmol/L (136-145); UREA NITROGEN, BLOOD 41 mg/dL (7-18)
[2020-01-23] MEDS: PANTOPRAZOLE 40 MG TABLET.DR PO SCH (07:30)
[2020-01-23 07:34] LABS: CARBON DIOXIDE 25 mmol/L (21-32)
--- NOTE | 2020-01-23 07:51 | NUR ---
rn notes Patient received on rooma ir, no sob noted, a/o x3. Patient denies pain at this time. R AC 20 NS @ 75 ml per hour. No BP or anything on left arm. Bed at the lowest setting, call light within reach, side rails up x2.
[2020-01-23] MEDS: BLOOD SUGAR DIAGNOSTIC 1 EACH STRIP IN SCH ×4 (07:59→22:19)
[2020-01-23 08:00] VITALS: BP 147/65
[2020-01-23] MEDS: ATORVASTATIN 40 MG TABLET PO SCH (08:38)
[2020-01-23] MEDS: FUROSEMIDE 40 MG TABLET PO SCH (08:38)
[2020-01-23] MEDS: COLCHICINE 0.6 MG TABLET PO SCH ×2 (08:38→17:28)
[2020-01-23] MEDS: ASPIRIN EC 81 MG TABLET.DR PO SCH (08:38)
[2020-01-23] MEDS: EZETIMIBE 10 MG TABLET PO SCH (08:38)
[2020-01-23] MEDS: HYDROCHLOROTHIAZIDE 25 MG TABLET PO SCH (08:38)
[2020-01-23] MEDS: LINAGLIPTIN 5 MG TABLET PO SCH (08:39)
[2020-01-23] MEDS: METOPROLOL SUCCINATE 25 MG TAB.SR.24H PO SCH ×2 (08:39→17:31)
[2020-01-23] MEDS: SODIUM BICARBONATE 650 MG TABLET PO SCH (08:39)
[2020-01-23] MEDS: MEMANTINE HCL 5 MG TABLET PO SCH ×2 (08:39→17:29)
[2020-01-23] MEDS: LORATADINE 10 MG TABLET PO SCH (08:39)
[2020-01-23] MEDS: MONTELUKAST SODIUM (10MG) 10 MG TABLET PO SCH (08:39)
[2020-01-23] MEDS: CELECOXIB 100 MG CAPSULE PO SCH ×2 (08:39→17:33)
[2020-01-23] MEDS: LOSARTAN POTASSIUM 50 MG TABLET PO SCH (08:40)
[2020-01-23] MEDS: ANASTROZOLE 1 MG TABLET PO SCH (08:42)
[2020-01-23] MEDS: glyBURIDE 5 MG TABLET PO SCH ×2 (08:42→17:28)
[2020-01-23] MEDS: FLUTICASONE/VILANTEROL 1 EACH BLST.W.DEV IH SCH (08:42)
[2020-01-23] MEDS: INSULIN GLARGINE, 100 UNIT/ML CARTRIDGE SQ SCH (10:06)
[2020-01-23] MEDS: INSULIN REGULAR, HUMAN 100 UNIT/ML 3 ML VIAL SQ PRN ×2 (11:57→22:23)
--- NOTE | 2020-01-23 13:08 | NUR ---
rn notes Patient's home health called and wanted their information be placed in the file. [facility]. [phone] - fax [phone] - Phone number
--- NOTE | 2020-01-23 15:27 | NUR ---
RN NOTES Transfered PETE to Steffanie HUSAIN
[2020-01-23 16:00] VITALS: BP 128/60
[2020-01-23 16:04] VITALS: BP 128/40
[2020-01-23] MEDS: IV NS 0.9% 1,000 ML BAG IV PRN (17:48)
--- NOTE | 2020-01-23 18:36 | NUR ---
MS/RN CLOSING NOTES PATIENT IS ON BED LYING COMFORTABLY PATIENT IS ALERT AND ORIENTED X4. NO SOB NOTED. DENIES PAIN AT THIS TIME. SEEN AND EXAMINED BY MR WITH ORDERS MADE AND CARRIED OUT. KEPT PATIENT COMFORTABLE AND DRY. IV FLUID OF NS 1L AT 75ML/HR ON AND INFUSING WELL. ALL DUE MEDS WAS GIVEN. SAFETY PRECAUTION WAS IN PLACED. BED IN LOWEST POSITION AND LOCKED. BED SIDE RAILS UP X2. CALL LIGHT WITHIN REACH. WILL ENDORSED TO ILLUMINATING ENGINEER FOR PETE.
[2020-01-23 20:00] VITALS: BP 138/70
[2020-01-23] MEDS: ENOXAPARIN SODIUM 30 MG/0.3 ML DISP.SYRIN SQ SCH (21:04)
[2020-01-23] MEDS: GABAPENTIN 300 MG CAPSULE PO SCH (21:04)
--- NOTE | 2020-01-23 23:00 | NUR ---
RN NOTES PATIENT REFUSED SPUTUM CX TO BE COLLECTED DESPITE DISCUSSION OF RISKS AND BENEFITS AND STATED "I DON'T NEED IT, I'M GOING HOME TOMORROW"
[2020-01-24] MEDS: CEFAZOLIN 2 GM in IV D5W 100 ML IV SCH ×2 (00:35→08:50)
[2020-01-24 04:00] VITALS: BP 115/83
[2020-01-24 06:25] LABS: BASOPHILS % (AUTO) 0.3 % (0.0-2.0); EOSINOPHILS % (AUTO) 6.7 % (0.0-6.0); HEMATOCRIT 33 % (33-45); HEMOGLOBIN 10.8 g/dL (11.5-14.8); LYMPHOCYTES # (AUTO) 2.7 /CMM (0.8-4.8); LYMPHOCYTES % (AUTO) 28.3 % (20.0-44.0); MEAN CORPUSCULAR HGB CONC 33 g/dl (31.0-36.0); MEAN CORPUSCULAR VOLUME 88 fL (82-100); MONOCYTES # (AUTO) 0.7 /CMM (0.1-1.30); MONOCYTES % (AUTO) 6.9 % (2.0-12.0); NEUTROPHILS # (AUTO) 5.6 /CMM (1.8-8.9); NEUTROPHILS % (AUTO) 57.8 % (43.0-81.0); PLATELET COUNT (AUTO) 249 /CMM (150-450); RED BLOOD CELL COUNT(AUTO) 3.76 MIL/uL (4.0-5.2); WHITE BLOOD COUNT (AUTO) 9.7 K/uL (4.3-11.0)
[2020-01-24 06:56] LABS: CALCIUM, SERUM 8.9 mg/dL (8.5-10.1); CREATININE 1.2 mg/dL (0.6-1.3); POTASSIUM 3.9 mmol/L (3.5-5.1)
--- NOTE | 2020-01-24 07:02 | NUR ---
RN CLOSING NOTES PATIENT SLEEPING IN BED, BUT EASY TO AROUSE, A/OX4. NO ACUTE CHANGES THROUGHOUT SHIFT. ON ROOM AIR, TOLERATING WELL, NO SOB NOTED. DENIES PAIN. KEPT PATIENT CLEAN, DRY, AND COMFORTABLE. IV SITE RIGHT AC 20G, FLUSHING AND PATENT, IVF RUNNING ORDERED, TOLERATING WELL, NO INFILTRATION NOTED. ALL DUE MEDS WAS GIVEN. ALL MD ORDERS ATTENDED. SAFETY PRECAUTION MAINTAINED; WALKER AT BEDSIDE, BED IN LOWEST POSITION AND LOCKED, BED SIDE RAILS UP X2, CALL LIGHT WITHIN REACH. WILL ENDORSED TO AM RN FOR PETE.
--- NOTE | 2020-01-24 07:10 | NUR ---
RN OPENING NOTES RECEIVED PATIENT IN STABLE CONDITION. A/OX4. NOT IN ANY FORM OF DISTRESS. NO SOB. DENIED PAIN OR DISCOMFORT AT THIS TIME. IV ACCESS, INTACT AND PATENT. KEPT PATIENT SAFE AND COMFORTABLE. BED IN LOW/LOCKED LOCKED PSOITION, SIDERAILS UPX2, CALL LIGHT IN REACH. WILL MONITOR ACCORDINGLY.
[2020-01-24 08:00] VITALS: BP 142/58
[2020-01-24] MEDS: EZETIMIBE 10 MG TABLET PO SCH (08:43)
[2020-01-24] MEDS: METOPROLOL SUCCINATE 25 MG TAB.SR.24H PO SCH (08:43)
[2020-01-24] MEDS: CELECOXIB 100 MG CAPSULE PO SCH (08:43)
[2020-01-24] MEDS: HYDROCHLOROTHIAZIDE 25 MG TABLET PO SCH (08:43)
[2020-01-24] MEDS: ATORVASTATIN 40 MG TABLET PO SCH (08:43)
[2020-01-24] MEDS: glyBURIDE 5 MG TABLET PO SCH (08:44)
[2020-01-24] MEDS: PANTOPRAZOLE 40 MG TABLET.DR PO SCH (08:44)
[2020-01-24] MEDS: MONTELUKAST SODIUM (10MG) 10 MG TABLET PO SCH (08:44)
[2020-01-24] MEDS: LOSARTAN POTASSIUM 50 MG TABLET PO SCH (08:44)
[2020-01-24] MEDS: COLCHICINE 0.6 MG TABLET PO SCH (08:45)
[2020-01-24] MEDS: LINAGLIPTIN 5 MG TABLET PO SCH (08:45)
[2020-01-24] MEDS: SODIUM BICARBONATE 650 MG TABLET PO SCH (08:45)
[2020-01-24] MEDS: MEMANTINE HCL 5 MG TABLET PO SCH (08:45)
[2020-01-24] MEDS: ASPIRIN EC 81 MG TABLET.DR PO SCH (08:46)
[2020-01-24] MEDS: LORATADINE 10 MG TABLET PO SCH (08:46)
[2020-01-24] MEDS: BLOOD SUGAR DIAGNOSTIC 1 EACH STRIP IN SCH ×2 (08:46→13:04)
[2020-01-24] MEDS: FUROSEMIDE 40 MG TABLET PO SCH (08:46)
[2020-01-24] MEDS: FLUTICASONE/VILANTEROL 1 EACH BLST.W.DEV IH SCH (08:48)
[2020-01-24] MEDS: ANASTROZOLE 1 MG TABLET PO SCH (08:49)
[2020-01-24] MEDS: INSULIN GLARGINE, 100 UNIT/ML CARTRIDGE SQ SCH (08:55)
[2020-01-24] MEDS: INSULIN REGULAR, HUMAN 100 UNIT/ML 3 ML VIAL SQ PRN (13:06)
[2020-01-24 16:00] VITALS: BP 122/53
--- NOTE | 2020-01-24 17:42 | NUR ---
DISCHARGED PATIENT INSTABLE CONDITION PICKED UP BY SON AND DAUGHTER, ACCOMPANIED TO THE LOBBY BY PRIMARY NURSE. DISCHARGE INSTRUCTIONS GIVEN--TO F/U WITH PRIMARY MD, CONT ANTIBIOTIC AND HOME MEDS ORDERED. VERBALIZED UNDERSTANDING. ALL BELONGINGS RETURNED, FORMS SINGED. PRESCRIPTIONS GIVEN. IV ACCESS REMOVED, TIP INTACT, NO COMPLICATIONS. REMOVED NAME BAND.
[2020-01-26] MEDS ORDERED: ERGOCALCIFEROL (VITAMIN D 2) 50,000 UNIT CAPSULE PO SCH (09:00)
== END 2020-01-24 17:40 | disposition home or self-care (01) | DRG 602 ==
LOC: ER 15:33 → MEDSG1 17:46
PROVIDERS: ADMIT Nurse Practitioner Acute Care; ATTEND Nurse Practitioner Acute Care
DX: L03.116 Cellulitis of left lower limb (principal); J15.9 Unspecified bacterial pneumonia; N17.0 Acute kidney failure with tubular necrosis; E87.2 Acidosis; E44.1 Mild protein-calorie malnutrition; Z68.41 Body mass index [BMI] 40.0-44.9, adult; J44.0 Chronic obstructive pulmonary disease with (acute) lower respiratory infection; I11.0 Hypertensive heart disease with heart failure; E11.622 Type 2 diabetes mellitus with other skin ulcer; E11.65 Type 2 diabetes mellitus with hyperglycemia; E11.40 Type 2 diabetes mellitus with diabetic neuropathy, unspecified; I50.9 Heart failure, unspecified; C50.912 Malignant neoplasm of unspecified site of left female breast; E78.5 Hyperlipidemia, unspecified; Z79.84 Long term (current) use of oral hypoglycemic drugs; Z79.82 Long term (current) use of aspirin; Z79.4 Long term (current) use of insulin; Z79.899 Other long term (current) drug therapy; L03.115 Cellulitis of right lower limb; I25.10 Atherosclerotic heart disease of native coronary artery without angina pectoris; K21.9 Gastro-esophageal reflux disease without esophagitis; J30.9 Allergic rhinitis, unspecified; H54.61 Unqualified visual loss, right eye, normal vision left eye; L98.499 Non-pressure chronic ulcer of skin of other sites with unspecified severity; Z85.3 Personal history of malignant neoplasm of breast; Z86.718 Personal history of other venous thrombosis and embolism; Z97.0 Presence of artificial eye; Z90.12 Acquired absence of left breast and nipple
CPT/HCPCS: 36415; 71045-TC; 80048-TC; 80053-TC; 80076-TC; 80202-TC; 82962-TC; 83605-TC; 83735-TC; 83880; 84100-TC; 84484-TC; 85025-TC; 85730-TC; 87040-TC; 87081-TC; 93970-TC; 97116-TC; 97530-TC; G0378; J0690; J1650; J1815; J1940; J2543; J3370; J3475; J7030; J7050; J7060

== ENCOUNTER 2021-07-11 19:46 | Inpatient (IN) | payer MEDICAID, MEDICARE ==
[~2021-07-11] VITALS: Ht 160 cm; Wt 97.7 kg
[~2021-07-11 19:46] MED LIST changes: -ASPI-1152 PO; +ASPI-1420 PO; +CLOT15CR5 TP; +DULA1.5P SQ; +ERGO500093 PO; -FAMO40TA7 PO; +FURO-144 PO; +GLYB5TAB7 PO; -LIPA1CAP15 PO; -MECL-159 PO; -OLME1TAB84 PO; +OLME1TAB90 PO; +SITA1TAB2 PO; -SPIR25TA6 PO
--- NOTE | 2021-07-11 19:56 | NUR ---
PT PARAGUAYAN SPEAKING. BIBRA 839 FROM HOME C/O HAVING A FEVER X2 DAYS. PER RA, FAMILY STATED PT HAS BEEING PEEING A LOT. PLACED IN BED 7 ON SOCIAL WORK COORDINATOR AND PULSE OX. ER MD AT BEDSIDE FOR EVAL. AWAITING ORDERS.
[2021-07-11] MEDS ORDERED: CEFEPIME 1 GM in IV D5W 50 ML IV ONE (20:00)
[2021-07-11] MEDS ORDERED: IV NS 0.9% 1,000 ML BAG IV ONE (20:00)
[2021-07-11] MEDS ORDERED: VANCOMYCIN 1 GM in IV D5W 250 ML IV ONE (20:00)
--- NOTE | 2021-07-11 20:09 | NUR ---
EMT AT BEDSIDE FOR EKG
--- NOTE | 2021-07-11 20:30 | NUR ---
IV LINE ESTABLISHED AT RFA 20G, AND LAC 18G.
[2021-07-11] MEDS ORDERED: CEFEPIME 1 GM VIAL ONE (20:32)
[2021-07-11] MEDS ORDERED: VANCOMYCIN 1 GM VIAL ONE (20:32)
--- NOTE | 2021-07-11 20:35 | NUR ---
CXR DONE AT BEDSIDE.
[2021-07-11 20:37] LABS: BASOPHILS % (AUTO) 0.2 % (0.0-2.0); EOSINOPHILS % (AUTO) 1.3 % (0.0-6.0); HEMATOCRIT 33 % (33-45); HEMOGLOBIN 10.6 g/dL (11.5-14.8); LYMPHOCYTES % (AUTO) 5.7 % (20.0-44.0); MEAN CORPUSCULAR HGB CONC 33 g/dl (31.0-36.0); MEAN CORPUSCULAR VOLUME 85 fL (82-100); MONOCYTES # (AUTO) 0.7 K/uL (0.1-1.30); MONOCYTES % (AUTO) 3.8 % (2.0-12.0); NEUTROPHILS # (AUTO) 15.5 K/uL (1.8-8.9); PLATELET COUNT (AUTO) 238 K/uL (150-450); RED BLOOD CELL COUNT(AUTO) 3.83 MIL/uL (4.0-5.2); WHITE BLOOD COUNT (AUTO) 17.4 K/uL (4.3-11.0)
[2021-07-11 20:53] LABS: CALCIUM, SERUM 8.9 mg/dL (8.5-10.1); CARBON DIOXIDE 21 mmol/L (21-32); CHLORIDE 103 mmol/L (98-107); CREATININE 1.5 mg/dL (0.6-1.3); GLUCOSE 253 mg/dL (74-106); POTASSIUM 5.1 mmol/L (3.5-5.1); SODIUM SERUM 135 mmol/L (136-145); UREA NITROGEN, BLOOD 46 mg/dL (7-18)
--- NOTE | 2021-07-11 21:00 | NUR ---
COVID SWAB COLLECTED AND SENT TO LAB
[2021-07-11 21:04] LABS: ALANINE AMINOTRANSFERASE 23 U/L (12-78); ALBUMIN 3.4 g/dL (3.4-5.0); ALKALINE PHOSPHATASE 103 U/L (46-116); ASPARTATE AMINOTRANSFERASE 22 U/L (15-37); BILIRUBIN,DIRECT 0.1 mg/dL (0.0-0.2); BILIRUBIN,TOTAL 0.4 mg/dL (0.2-1.0); TOTAL PROTEIN, SERUM 8.2 g/dL (6.4-8.2)
--- NOTE | 2021-07-11 21:20 | NUR ---
URINE SPECIMEN COLLECTED AND SENT TO LAB
--- NOTE | 2021-07-11 21:45 | NUR ---
NIECE CALLED REGARDING PATIENT AND WANTED TO RECIEVE ANY UPDATES. ALSO LEFT PHONE NUMBER IF WE NEEDED TO CONTACT HER AT [phone].
--- NOTE | 2021-07-11 21:51 | NUR ---
[facility]ED [facility], PAGED RAYA
[2021-07-11 22:00] LABS: BILIRUBIN,URINE NEGATIVE (NEGATIVE); COLOR,URINE YELLOW (YELLOW); LEUKOCYTE ESTERASE ,URINE NEGATIVE (NEGATIVE); NITRITE, URINE NEGATIVE (NEGATIVE); PH,URINE 5.5 (5.0-8.0); PROTEIN,URINE TRACE mg/dl (NEGATIVE); UGLUCOSE 250 MG/DL mg/dL (NEGATIVE); UROBILINOGEN,URINE 0.2 EU/dL (0.2)
[2021-07-11 22:09] LABS: BACTERIA,URINE None seen /HPF (None Seen); RBC,URINE 0-2 /HPF (0-2); WBC,URINE 0-2 /HPF (0-3)
[2021-07-11 22:10] LABS: SQUAMOUS EPITHELIAL CELL,UR 0-2 /HPF (None Seen)
--- NOTE | 2021-07-11 22:44 | NUR ---
CALL BACK TO PT'S NIECE, TANK AT [phone], VERIFIED NEXT OF KIN WOULD BE PT'S BROTHER WHO LIVES WITH PT AT HOME, LIZZIE AND MAY BE REACHED [phone], OR HIS MOBILE [phone].
[2021-07-11] MEDS ORDERED: ACETAMINOPHEN 325 MG TABLET ONE (22:50)
[2021-07-11] MEDS ORDERED: Z GUARD REMEDY 2 OZ OINT TP PRN (23:00)
[2021-07-11] MEDS ORDERED: ACETAMINOPHEN 325 MG TABLET PO ONE (23:00)
[2021-07-11] MEDS ORDERED: ONDANSETRON HCL/PF 4 MG/2 ML VIAL IVP PRN (23:00)
[2021-07-11] MEDS ORDERED: MAG HYDROX/AL HYDROX/SIMETH 30 ML UDC PO PRN (23:00)
[2021-07-11] MEDS ORDERED: MAGNESIUM HYDROXIDE 30 ML UDC PO PRN (23:00)
[2021-07-11] MEDS ORDERED: ZOLPIDEM TARTRATE 5 MG TABLET PO PRN (23:00)
--- NOTE | 2021-07-11 23:15 | NUR ---
NOTED TEMP 100.3 DEG, WAS NOTIFIED, ORDERS RECEIVED FOR TYLENOL 650 MG PO. WILL CONT TO MONITOR
--- NOTE | 2021-07-12 00:28 | NUR ---
COVID PCR COLLECTED AND SENT TO LAB.
--- NOTE | 2021-07-12 01:01 | NUR ---
PT TRANSFERRED TO ROOM 107 VIA [facility]/ PERSON ASSIST. PT IN STABLE CONDITION. REPORT GIVEN TO THOMAS HUSAIN.
[2021-07-12 01:10] VITALS: BP 121/47
--- NOTE | 2021-07-12 01:10 | NUR ---
RN ADMITTING NOTE PATIENT ADMITTED VIA GURNEY, PATIENT IS [place] SPEAKING BUT UNDERSTANDS/SPEAKS SIMPLE [place]HT[place]. PATIENT IS A/O X 4. PATIENT IS ABLE TO MAKE NEEDS KNOWN. PATIENT HAS A LAC 18 G AND R FA 20 G, BOTH PATENT AND INTACT. PATIENT DOES NOT COMPLAIN OF ANY PAIN AT THIS TIME. TELE MONITOR READS SR 91 BPM, EXPIRATORY WHEEZES HEARD AND SOB OBSERVED. PATIENT STABLE ON RA 98% O2 SATURATION. PATIENT'S SKIN ISSUES DOCUMENTED. NO BP/BLOOD DRAW ON LEFT POSTED ON WALL D/T LEFT BREAST MASTECTOMY. BELONGINGS INVENTORIED, ORIENTED PATIENT TO ROOM, RN, AND [employer] DEVELOPER. SAFETY MEASURES IN PLACE: BED LOCKED AND IN LOWEST POSITION, CALL LIGHT WITHIN REACH, SIDE RAILS UP. ISOLATION PRECAUTION IN PLACE. WILL MONITOR PATIENT CLOSELY.
[2021-07-12] MEDS: IV NS 0.9% 1,000 ML IV PRN (02:04)
--- NOTE | 2021-07-12 02:45 | NUR ---
RN NOTE DR. DOS SANTOS NOTIFIED OF REPEAT LACTIC ACID 3.2 AND ASKED FOR ADVISEMENT. WAITING ON RESPONSE.
[2021-07-12 04:00] VITALS: BP 110/45
[2021-07-12] MEDS ORDERED: CEFEPIME 1 GM in IV D5W 50 ML IV ONE (04:00)
[2021-07-12 06:00] LABS: BASOPHILS % (AUTO) 0.2 % (0.0-2.0); EOSINOPHILS % (AUTO) 0.1 % (0.0-6.0); HEMATOCRIT 27 % (33-45); LYMPHOCYTES % (AUTO) 4.8 % (20.0-44.0); MEAN CORPUSCULAR HGB CONC 33 g/dl (31.0-36.0); MEAN CORPUSCULAR VOLUME 85 fL (82-100); MONOCYTES # (AUTO) 0.8 K/uL (0.1-1.30); MONOCYTES % (AUTO) 4.1 % (2.0-12.0); NEUTROPHILS # (AUTO) 18.1 K/uL (1.8-8.9); NEUTROPHILS % (AUTO) 90.8 % (43.0-81.0); PLATELET COUNT (AUTO) 207 K/uL (150-450); RED BLOOD CELL COUNT(AUTO) 3.21 MIL/uL (4.0-5.2); WHITE BLOOD COUNT (AUTO) 19.9 K/uL (4.3-11.0)
[2021-07-12] MEDS ORDERED: DEXTROSE 50%-WATER 50 ML DISP.SYRIN IV PRN (06:00)
[2021-07-12 06:41] LABS: CALCIUM, SERUM 8.3 mg/dL (8.5-10.1); CARBON DIOXIDE 22 mmol/L (21-32); CHLORIDE 105 mmol/L (98-107); CREATININE 1.5 mg/dL (0.6-1.3); GLUCOSE 217 mg/dL (74-106); MAGNESIUM 1.6 mg/dL (1.8-2.4); PHOSPHORUS 3.7 mg/dL (2.5-4.9); POTASSIUM 4.5 mmol/L (3.5-5.1); SODIUM SERUM 136 mmol/L (136-145); UREA NITROGEN, BLOOD 42 mg/dL (7-18)
[2021-07-12 06:50] LABS: CHOLESTEROL 142 mg/dL (<200); HDL CHOLESTEROL 55 mg/dL (40-60); LDL 65 mg/dL (0-99); THYROID STIMULATING HORMONE 1.093 uIU/mL (0.358-3.74); TRIGLYCERIDES 104 mg/dL (30-150)
[2021-07-12] MEDS: BLOOD SUGAR DIAGNOSTIC 1 EACH STRIP VI SCH ×4 (06:59→21:55)
[2021-07-12] MEDS: INSULIN REGULAR, HUMAN 100 UNIT/ML 3 ML VIAL SQ PRN ×4 (07:02→21:59)
--- NOTE | 2021-07-12 07:10 | NUR ---
RN OPENING NOTE RECEIVED PATIENT ON BED ALERT AND ORIENTED X 4, PERUVIAN-SPEAKING. PATIENT ON MODERATE TO HIGH BACK REST. NOTED WITH WHEEZING BUT NO SIGNS OF RESPIRATORY DISTRESS. PATIENT ON ROOM AIR WITH SATURATING AT 97%. ON TELE MONITOR WITH CARDIAC READING OF SR AT 72 BPM. PATIENT WITH IV ACCESS ON LEFT AC G18, PATENT AND INTACT. WITH RIGHT FA G20 WITH IVF OF NS RUNNING AT 75ML/HR. SAFETY MEASURES IN PLACE: BED LOCKED AND IN LOWEST POSITION, CALL LIGHT WITHIN REACH, SIDE RAILS UP. ISOLATION PRECAUTION IN PLACE. WILL MONITOR PATIENT CLOSELY.
--- NOTE | 2021-07-12 07:28 | NUR ---
RN CLOSING NOTE PATIENT IS IN BED AWAKE, PATIENT IS ABLE TO MAKE NEEDS KNOWN. A/O X 4. CENTRAL AFRICAN SPEAKING, PATIENT ABLE TO RESPOND IN K[place]WANDA WHEN READING CENTRAL AFRICAN TRANSLATION. BS THIS AM IS 176 MG/DL 3 UNITS GIVEN. NOT IN ANY APPARENT DISTRESS. 2 L OF O2 SUPPLEMENT GIVEN, D/T PATIENT'S DYSPNEA. ENDORSED TO LISHA REYES FOR PETE.
--- NOTE | 2021-07-12 07:57 | NUR ---
WOUND CARE CONSULT: REVIEWED CHART, NURSING DOCUMENTATION AND PHOTOS WHICH INDICATE LOWER EXTREMITY REDNESS, SWELLING AND RASHES TO SKIN FOLDS, PRESENT ON ADMISSION. DPM CONSULT CALLED TO DR ARNOLD. RECOMMENDATIONS MADE FOR SKIN PROTECTION. DISCUSSED WITH NURSING STAFF. MD IN AGREEMENT WITH PLAN OF CARE.
[2021-07-12 08:00] VITALS: BP 150/59
[2021-07-12] MEDS: PANTOPRAZOLE 40 MG TABLET.DR PO SCH (08:01)
[2021-07-12] MEDS ORDERED: LIPA1CAP15 PO (08:31)
[2021-07-12] MEDS ORDERED: Magnesium 1GM/D5W 100ML PREMIX 100 ML IV SCH (09:00)
[2021-07-12] MEDS: CLOTRIMAZOLE 1% 15 GM TUBE TP SCH ×2 (09:36→17:59)
[2021-07-12] MEDS: CEFEPIME 2 GM in IV D5W 100 ML IV SCH ×2 (09:36→19:51)
[2021-07-12] MEDS: ACETAMINOPHEN 325 MG TABLET PO PRN (09:39)
[2021-07-12 12:00] VITALS: BP 126/47
[2021-07-12] MEDS: IPRATROPIUM/ALBUTEROL INHALER IH SCH ×2 (12:00→17:51)
[2021-07-12] MEDS: AZITHROMYCIN 250 MG TABLET PO SCH (12:28)
[2021-07-12] MEDS: VANCOMYCIN 1 GM in IV D5W 250 ML IV SCH (15:22)
[2021-07-12 16:00] VITALS: BP 115/74
--- NOTE | 2021-07-12 19:00 | NUR ---
RN CLOSING NOTE PATIENT ON BED ALERT AND ORIENTED X 4, JAMAICAN-SPEAKING. PATIENT ON MODERATE TO HIGH BACK REST. NOTED WITH WHEEZING BUT NO SIGNS OF RESPIRATORY DISTRESS. PATIENT ON ROOM AIR WITH SATURATING AT 97%. ON TELE MONITOR WITH CARDIAC READING OF SR AT 72 BPM. PATIENT WITH IV ACCESS ON LEFT AC G18, PATENT AND INTACT. WITH RIGHT FA G22 WITH IVF OF NS RUNNING AT 75ML/HR. SAFETY MEASURES IN PLACE: BED LOCKED AND IN LOWEST POSITION, CALL LIGHT WITHIN REACH, SIDE RAILS UP. ISOLATION PRECAUTION IN PLACE. WILL ENDORSE TO NEXT SHIFT FOR CONTINUITY OF CARE.
[2021-07-12 20:00] VITALS: BP 171/73
--- NOTE | 2021-07-12 20:00 | NUR ---
Patient is awake, A&Ox3. Denies pain or discomfort at this time. IVF currently infusing. both IV sites flushed, patent, and intact. Wheezing heard but patient reports she feels no distress or SOB. O2 97% on RA. Will continue to monitor.
--- NOTE | 2021-07-12 21:30 | NUR ---
attempted to straight cath using sterile technique -no urine return. Will try again later.
--- NOTE | 2021-07-13 00:10 | NUR ---
Attempted to see if patient could hold bladder to get urine sample via clean bedpan. Patient had large urination while in process of turning before bedpan was underneath soiled chux and linens. patient changed and cleaned. Will try again and will straight catheterize again if unable.
[2021-07-13] MEDS ORDERED: hydrALAZINE HCL 25 MG TABLET PO PRN ×2 (01:00→01:30)
--- NOTE | 2021-07-13 01:06 | NUR ---
SBP continues to be in 170s. new order from dr dugan. Hydralazine 25mg PO q6h PRN for hypertension.
--- NOTE | 2021-07-13 02:17 | NUR ---
collected urine for STAT urine studies. in biohazard fridge. Lab called for pickup.
[2021-07-13 04:00] VITALS: BP 137/50
[2021-07-13] MEDS: IV NS 0.9% 1,000 ML IV PRN (04:04)
[2021-07-13] MEDS: IPRATROPIUM/ALBUTEROL INHALER IH SCH ×4 (06:06→17:36)
--- NOTE | 2021-07-13 06:24 | NUR ---
VISUAL MERCHANDISING DIRECTOR CLOSING NOTES Patient A&Ox3. B/P went down to 137/50 after admin of PRN hydralazine. Patient audibly wheezing but denies SOB and O2 sats >96% on RA -inhaler helps. Wound treatment to RLE extremity done no drainage. Patient tolerating IV ABX and IVF well. No hypo or hyperglycemic reactions noted. No other issues overnight.
[2021-07-13] MEDS: BLOOD SUGAR DIAGNOSTIC 1 EACH STRIP VI SCH ×4 (06:37→21:05)
[2021-07-13] MEDS: INSULIN REGULAR, HUMAN 100 UNIT/ML 3 ML VIAL SQ PRN ×3 (06:40→17:36)
[2021-07-13 07:42] LABS: IRON, SERUM 12 ug/dl (50-175); TOTAL IRON BINDING CAPACITY 277 ug/dl (250-450)
[2021-07-13 08:00] VITALS: BP 120/36
--- NOTE | 2021-07-13 08:00 | NUR ---
RN Note: Pt received alert awake oriented X 4. On RA, no breathing distress noted. Denies pain & discomfort at this time. Safety measures observed. IV intact, IV fluids running as ordered. Encourage pt to use call light for assistance. Call light with in reach. Continue to monitor.
[2021-07-13 08:05] LABS: CALCIUM, SERUM 8.7 mg/dL (8.5-10.1); CREATININE 1.3 mg/dL (0.6-1.3); MAGNESIUM 1.9 mg/dL (1.8-2.4); POTASSIUM 4.4 mmol/L (3.5-5.1)
[2021-07-13] MEDS: CEFEPIME 2 GM in IV D5W 100 ML IV SCH ×2 (08:08→20:38)
[2021-07-13] MEDS: PANTOPRAZOLE 40 MG TABLET.DR PO SCH (08:08)
[2021-07-13] MEDS: CLOTRIMAZOLE 1% 15 GM TUBE TP SCH ×2 (08:08→17:36)
[2021-07-13] MEDS: VANCOMYCIN 1 GM in IV D5W 250 ML IV SCH (09:40)
[2021-07-13 12:00] VITALS: BP 132/40
[2021-07-13] MEDS: FERROUS SULFATE (325 MG) 325 MG/TAB TABLET PO SCH ×2 (12:18→17:34)
[2021-07-13] MEDS: AZITHROMYCIN 250 MG TABLET PO SCH (12:18)
[2021-07-13 16:00] VITALS: BP 145/53
[2021-07-13 16:09] LABS: OCCULT BLOOD STOOL NEGATIVE (NEGATIVE)
[2021-07-13 20:00] VITALS: BP 137/51
[2021-07-13] MEDS: *INSULIN REGULAR(HUMULIN R)HUM 100 UNIT/ML VIAL SQ PRN (21:13)
[2021-07-14] MEDS: IPRATROPIUM/ALBUTEROL INHALER IH SCH ×5 (00:03→23:15)
[2021-07-14] MEDS: VANCOMYCIN 1 GM in IV D5W 250 ML IV SCH (02:06)
[2021-07-14 04:00] VITALS: BP 154/68
[2021-07-14 06:18] LABS: BASOPHILS % (AUTO) 0.4 % (0.0-2.0); EOSINOPHILS % (AUTO) 3.2 % (0.0-6.0); HEMATOCRIT 28 % (33-45); HEMOGLOBIN 9.4 g/dL (11.5-14.8); LYMPHOCYTES # (AUTO) 1.6 K/uL (0.8-4.8); LYMPHOCYTES % (AUTO) 16.8 % (20.0-44.0); MEAN CORPUSCULAR HGB CONC 34 g/dl (31.0-36.0); MEAN CORPUSCULAR VOLUME 84 fL (82-100); MONOCYTES # (AUTO) 0.9 K/uL (0.1-1.30); MONOCYTES % (AUTO) 8.8 % (2.0-12.0); NEUTROPHILS # (AUTO) 6.9 K/uL (1.8-8.9); NEUTROPHILS % (AUTO) 70.8 % (43.0-81.0); PLATELET COUNT (AUTO) 206 K/uL (150-450); RED BLOOD CELL COUNT(AUTO) 3.26 MIL/uL (4.0-5.2); WHITE BLOOD COUNT (AUTO) 9.7 K/uL (4.3-11.0)
--- NOTE | 2021-07-14 07:26 | NUR ---
RN NOTES PATIENT RECEIVED IN BED, ALERT AND ORIENTED X4, HARD OF HEARING. PATIENT ON ROOM AIR WITH NO SIGNS OF RESPIRATORY DISTRESS, WITH EVEN NON-LABORED BREATHING, WHEEZING PRESENT. IV ACCESS INTACT AND PATENT. SKIN WARM AND DRY TO TOUCH. PATIENT PRESENTS WITH NO SIGNS OF PAIN OR DISCOMFORT. SAFETY PRECAUTIONS IMPLEMENTED WITH BED LOCKED, BILATERAL SIDE RAILS UP, BED ALARM ON, AND CALL LIGHT WITHIN EASY REACH. WILL CONTINUE TO MONITOR PATIENT.
[2021-07-14] MEDS: BLOOD SUGAR DIAGNOSTIC 1 EACH STRIP VI SCH ×4 (07:56→21:44)
[2021-07-14] MEDS: CEFEPIME 2 GM in IV D5W 100 ML IV SCH ×2 (07:56→20:38)
[2021-07-14] MEDS: PANTOPRAZOLE 40 MG TABLET.DR PO SCH (07:57)
[2021-07-14] MEDS: INSULIN REGULAR, HUMAN 100 UNIT/ML 3 ML VIAL SQ PRN ×3 (07:59→17:09)
[2021-07-14 08:00] VITALS: BP 131/41
[2021-07-14 08:06] LABS: CALCIUM, SERUM 8.9 mg/dL (8.5-10.1); CREATININE 1.1 mg/dL (0.6-1.3); MAGNESIUM 1.8 mg/dL (1.8-2.4); PHOSPHORUS 2.8 mg/dL (2.5-4.9); POTASSIUM 4.6 mmol/L (3.5-5.1)
[2021-07-14] MEDS: FERROUS SULFATE (325 MG) 325 MG/TAB TABLET PO SCH ×2 (08:09→17:01)
[2021-07-14] MEDS: CLOTRIMAZOLE 1% 15 GM TUBE TP SCH ×2 (08:09→17:01)
[2021-07-14] MEDS: AZITHROMYCIN 250 MG TABLET PO SCH (12:04)
[2021-07-14] MEDS: ACETAMINOPHEN 325 MG TABLET PO PRN ×2 (14:52→21:32)
[2021-07-14 16:13] VITALS: BP 147/54
--- NOTE | 2021-07-14 18:07 | NUR ---
RN NOTES PATIENT IN BED RESTING COMFORTABLY, ALERT AND ORIENTED X4, HARD OF HEARING. PATIENT ON ROOM AIR WITH NO SIGNS OF RESPIRATORY DISTRESS, WITH EVEN NON-LABORED BREATHING, WHEEZING PRESENT. MET ALL OF PATIENT'S NEEDS. IV ACCESS INTACT AND PATENT. SKIN KEPT WARM AND DRY TO TOUCH. LOWER EXTREMITY DRESSING CHANGED AND INTACT. PATIENT PRESENTS WITH NO SIGNS OF PAIN OR DISCOMFORT. SAFETY PRECAUTIONS IMPLEMENTED WITH BED LOCKED, BILATERAL SIDE RAILS UP, BED ALARM ON, AND CALL LIGHT WITHIN EASY REACH. WILL ENDORSE PLAN OF CARE TO UPCOMING RN.
--- NOTE | 2021-07-14 19:32 | NUR ---
MS RN OPENING NOTES PT A/OX4; ABLE TO MAKE NEEDS KNOWN. ON ROOM AIR; TOLERATING WELL WITH NO SOB. DENIES PAIN OR DISCOMFORT AT THIS TIME. LAC#18G S/L; PATENT AND INTACT. SAFETY MEASURES IN PLACE: BED IS LOWEST LOCKED POSITION, SIDE RAILS UPX2; CALL LIGHT WITHIN EASY REACH. PATIENT IN STABLE CONDITION, WILL CONTINUE PLAN OF CARE.
[2021-07-14 20:00] VITALS: BP 119/68
[2021-07-14] MEDS ORDERED: VANCOMYCIN HCL 1.25 GM in IV D5W 250 ML IV SCH (21:00)
[2021-07-14] MEDS: *INSULIN REGULAR(HUMULIN R)HUM 100 UNIT/ML VIAL SQ PRN (21:47)
[2021-07-15 04:00] VITALS: BP 102/64
--- NOTE | 2021-07-15 06:11 | NUR ---
MS RN CLOSING NOTES PT A/OX4; ABLE TO MAKE NEEDS KNOWN. ON ROOM AIR; TOLERATING WELL AND EXPIRATORY WHEEZING NOTED. DENIES PAIN OR DISCOMFORT AT THIS TIME. LAC#18G S/L AND RFA #20G S/L PATENT AND INTACT. SAFETY MEASURES IN PLACE: BED IS LOWEST LOCKED POSITION, SIDE RAILS UPX2; CALL LIGHT WITHIN EASY REACH. PATIENT IN STABLE CONDITION, WILL ENDORSE PLAN OF CARE TO ONCOMING MORNING RN.
[2021-07-15 06:22] LABS: BASOPHILS % (AUTO) 0.4 % (0.0-2.0); EOSINOPHILS % (AUTO) 3.4 % (0.0-6.0); HEMATOCRIT 28 % (33-45); HEMOGLOBIN 9.4 g/dL (11.5-14.8); LYMPHOCYTES # (AUTO) 1.5 K/uL (0.8-4.8); LYMPHOCYTES % (AUTO) 14.2 % (20.0-44.0); MEAN CORPUSCULAR HGB CONC 34 g/dl (31.0-36.0); MEAN CORPUSCULAR VOLUME 85 fL (82-100); NEUTROPHILS # (AUTO) 7.5 K/uL (1.8-8.9); PLATELET COUNT (AUTO) 221 K/uL (150-450); RED BLOOD CELL COUNT(AUTO) 3.33 MIL/uL (4.0-5.2); WHITE BLOOD COUNT (AUTO) 10.5 K/uL (4.3-11.0)
[2021-07-15] MEDS ORDERED: CEFU500T66 PO (06:28)
[2021-07-15] MEDS ORDERED: AZIT250T PO (06:28)
[2021-07-15] MEDS: IPRATROPIUM/ALBUTEROL INHALER IH SCH ×2 (06:30→11:22)
[2021-07-15 07:08] LABS: CREATININE 1.1 mg/dL (0.6-1.3); MAGNESIUM 1.9 mg/dL (1.8-2.4); PHOSPHORUS 3.4 mg/dL (2.5-4.9); POTASSIUM 4.3 mmol/L (3.5-5.1)
--- NOTE | 2021-07-15 07:21 | NUR ---
RN NOTES PT FOUND IN SEMI FOWLERS POSITION BREATHING EVEN AND UNLABORED ON RA. PT IS A&OX4 AND ENDORSING NO PAIN. R FA 20G PATIENT AND INTACT. HOSPITAL SAFETY IN PLACE, BED LOCKED AND IN LOWEST POSITION, SIDE RAILS UPX2, CALL LIGHT WITHIN REACH, PT INSTRUCTED TO CALL FOR ASSISTANCE. WILL CONTINUE TO MONITOR.
[2021-07-15] MEDS: INSULIN REGULAR, HUMAN 100 UNIT/ML 3 ML VIAL SQ PRN ×2 (08:17→11:25)
[2021-07-15] MEDS: BLOOD SUGAR DIAGNOSTIC 1 EACH STRIP VI SCH ×2 (08:19→11:22)
[2021-07-15] MEDS: FERROUS SULFATE (325 MG) 325 MG/TAB TABLET PO SCH (08:19)
[2021-07-15] MEDS: PANTOPRAZOLE 40 MG TABLET.DR PO SCH (08:19)
[2021-07-15] MEDS: CEFEPIME 2 GM in IV D5W 100 ML IV SCH (08:19)
[2021-07-15] MEDS: CLOTRIMAZOLE 1% 15 GM TUBE TP SCH (08:20)
[2021-07-15] MEDS: AZITHROMYCIN 250 MG TABLET PO SCH (11:19)
[2021-07-15 12:00] VITALS: BP 153/52
--- NOTE | 2021-07-15 15:15 | NUR ---
DISCHARGE NOTE PT DISCHARGED TO HOME UNDER VIA BLS TRANSPORT, UN[address]. PT IVX2 REMOVED, BLEEDING CONTROLLED. PT IS A&OX4, BREATHING EVEN AND UNLABORED ON RA. PT GIVEN RESCUE INHALER FOR TRANSPORT. PT ENDORSES NO PAIN. LAST SET OF VS ARE 158/54, 88 HR, 98.4 F, 20 RR, 95% SPO2. BELONGINGS ACCOUNTED FOR AND PACKED UP W/ PT. PT PROVIDED MASK.
== END 2021-07-15 15:25 | disposition home or self-care (01) | DRG 720 ==
LOC: ER 19:53 → TELE1 07-12 00:44 → MEDSG1 07-13 15:55
PROVIDERS: ADMIT Student in an Organized Health Care Education/Training Program; ATTEND Nurse Practitioner Acute Care
DX: A41.9 Sepsis, unspecified organism (principal); N17.0 Acute kidney failure with tubular necrosis; I50.33 Acute on chronic diastolic (congestive) heart failure; J15.9 Unspecified bacterial pneumonia; E11.40 Type 2 diabetes mellitus with diabetic neuropathy, unspecified; J44.0 Chronic obstructive pulmonary disease with (acute) lower respiratory infection; I11.0 Hypertensive heart disease with heart failure; D50.9 Iron deficiency anemia, unspecified; L03.115 Cellulitis of right lower limb; E78.5 Hyperlipidemia, unspecified; I25.10 Atherosclerotic heart disease of native coronary artery without angina pectoris; Z20.822 Contact with and (suspected) exposure to COVID-19; E11.65 Type 2 diabetes mellitus with hyperglycemia; Z79.82 Long term (current) use of aspirin; Z79.4 Long term (current) use of insulin; Z79.899 Other long term (current) drug therapy; Z79.51 Long term (current) use of inhaled steroids; Z79.811 Long term (current) use of aromatase inhibitors; Z86.718 Personal history of other venous thrombosis and embolism; K21.9 Gastro-esophageal reflux disease without esophagitis; M10.9 Gout, unspecified; I87.2 Venous insufficiency (chronic) (peripheral); E83.42 Hypomagnesemia; E66.01 Morbid (severe) obesity due to excess calories; Z68.38 Body mass index [BMI] 38.0-38.9, adult
CPT/HCPCS: 36415; 71045-TC; 80048-TC; 80061-TC; 80076-TC; 80202-TC; 81001; 82272-TC; 82570-TC; 82962-TC; 83540-TC; 83605-TC; 83735-TC; 83880; 84100-TC; 84300-TC; 84443-TC; 84484-TC; 85025-TC; 85730-TC; 87040-TC; 87081-TC; 87086-TC; 87186-TC; 93307-TC; 93970-TC; A6253; A6403; C9803; G0378; J0692; J1815; J3370; J3475; J7030; J7060; U0003

== ENCOUNTER 2021-10-03 11:48 | Inpatient (IN) | payer MEDICARE, MEDICAID ==
[~2021-10-03] VITALS: Ht 152.4 cm; Wt 97.1 kg
[~2021-10-03 11:48] MED LIST changes: +AZIT250T PO; +CEFU500T66 PO; -COLC0.6T67 PO; -DICY20TA11 PO; -EZET10TA32 PO; -GLYB5TAB7 PO; -HYDR-3980 PO; -HYDR10SY16 PO; +LIPA1CAP15 PO; -LORA10TA7 PO; -METO25TA4 PO; -OLME1TAB90 PO
--- NOTE | 2021-10-03 12:16 | NUR ---
ELIZABETH HAGER From Home "Was sitting eating breakfast in bed- syncope and fell backwards/unresponsive xcouple min. Back to [facility] on 911 arrival" [id number]. The patient is alert and oriented x3 with episodes of forgetfullness. Denies pain. In room air and denies SOB. Respiration regular and unlabored. Denies pain. Attached to the monitor. Warm blanket provided for comfort. Will continue to monitor the patient.
--- NOTE | 2021-10-03 12:30 | NUR ---
DR CHURCHILL AT THE BEDSIDE
--- NOTE | 2021-10-03 12:35 | NUR ---
X-RAY TECH AT THE BEDSIDE
--- NOTE | 2021-10-03 12:46 | NUR ---
COVID SWAB DONE AND SENT TO THE LAB
[2021-10-03 12:51] LABS: BASOPHILS # (AUTO) 0.1 K/uL (0.0-0.2); BASOPHILS % (AUTO) 0.6 % (0.0-2.0); EOSINOPHILS % (AUTO) 0.2 % (0.0-6.0); HEMATOCRIT 34 % (33-45); HEMOGLOBIN 11.1 g/dL (11.5-14.8); LYMPHOCYTES # (AUTO) 1.6 K/uL (0.8-4.8); LYMPHOCYTES % (AUTO) 17.2 % (20.0-44.0); MEAN CORPUSCULAR HGB CONC 33 g/dl (31.0-36.0); MEAN CORPUSCULAR VOLUME 86 fL (82-100); MONOCYTES # (AUTO) 0.6 K/uL (0.1-1.30); MONOCYTES % (AUTO) 6.8 % (2.0-12.0); NEUTROPHILS # (AUTO) 7.2 K/uL (1.8-8.9); NEUTROPHILS % (AUTO) 75.2 % (43.0-81.0); PLATELET COUNT (AUTO) 300 K/uL (150-450); RED BLOOD CELL COUNT(AUTO) 3.95 MIL/uL (4.0-5.2); WHITE BLOOD COUNT (AUTO) 9.6 K/uL (4.3-11.0)
[2021-10-03 13:19] LABS: ALANINE AMINOTRANSFERASE 19 U/L (12-78); ALKALINE PHOSPHATASE 91 U/L (46-116); ASPARTATE AMINOTRANSFERASE 25 U/L (15-37); BILIRUBIN,DIRECT 0.2 mg/dL (0.0-0.2); BILIRUBIN,TOTAL 0.5 mg/dL (0.2-1.0); CALCIUM, SERUM 9.1 mg/dL (8.5-10.1); CARBON DIOXIDE 22 mmol/L (21-32); CHLORIDE 100 mmol/L (98-107); CREATININE 1.2 mg/dL (0.6-1.3); GLUCOSE 218 mg/dL (74-106); POTASSIUM 4.7 mmol/L (3.5-5.1); SODIUM SERUM 134 mmol/L (136-145); TOTAL PROTEIN, SERUM 7.9 g/dL (6.4-8.2); UREA NITROGEN, BLOOD 24 mg/dL (7-18)
[2021-10-03] MEDS: IV NS 0.9% 1,000 ML BAG IV ONE (13:20)
--- NOTE | 2021-10-03 14:40 | NUR ---
ROOM 107
--- NOTE | 2021-10-03 15:41 | NUR ---
REPORT GIVEN TO NURSE CORRIE
--- NOTE | 2021-10-03 16:08 | NUR ---
THE PATIENT IS TRANSFERED TO ROOM 107 IN STABLE CONDITION AND PER POLICY.
--- NOTE | 2021-10-03 16:18 | NUR ---
DOCUMENT SCANNER NOTES RECEIVED PT FROM ER WITH STABLE VITAL SIGNS. RECEIVED REPORT FROM ER NURSE, STEPHANIE HUSAIN. PT IS A/O X 3-2, GUYANESE SPEAKING. NO S/SX OF DISTRESS NOTED. NO SOB. BREATHING IS EVEN AND UNLABORED. PT TOLERATING WELL ON ROOM AIR. IV ACCESS RHAND#22 PATENT, INTACT AND FLUSHING WELL. WITH EXTERNAL HOME HEALTH CARE RESPIRATORY THERAPIST TELE BOX READING SINUS RHYTHM 90'S. SAFETY MEASURES IN PLACE WITH BED LOCKED AT LOW POSITION AND SIDE RAILS UP X 2. WILL CONTINUE TO MONITOR PATIENT THROUGHOUT SHIFT.
[2021-10-03] MEDS ORDERED: ONDANSETRON HCL/PF 4 MG/2 ML VIAL IVP PRN (18:30)
[2021-10-03] MEDS ORDERED: CLOTRIMAZOLE/BETAMETASONE DIPROPIONATE 15 GM TUBE TP PRN (18:30)
[2021-10-03] MEDS ORDERED: Z GUARD REMEDY 2 OZ OINT TP PRN (18:30)
--- NOTE | 2021-10-03 18:51 | NUR ---
HOME HEALTH NURSE LICENSED PRACTICAL CLOSING NOTE PT IS RESTING IN BED, COMFORTABLY. NO S/SX OF DISTRESS NOTED. NO SOB. IV ACCESS PATENT AND INTACT. SAFETY MEASURES MAINTAINED. ALL NEEDS MET THROUGHOUT SHIFT. WILL ENDORSE CONTINUITY OF CARE TO ONCOMING SHIFT.
[2021-10-03] MEDS ORDERED: ENOXAPARIN SODIUM 40 MG/0.4 ML DISP.SYRIN SQ SCH (19:00)
--- NOTE | 2021-10-03 19:00 | NUR ---
RN NOTE RECEIVED PATIENT IN BED, AO X 3-4, IN NO S/SX OF ACUTE DISTRESS AT THIS TIME. SATURATION AT 95% ON ROOM AIR, SR ON THE MONITOR, HR IS 95. NOTED IV SITE AT R HAND 22G, AND L HAND 18G, ALL HUBS PATENT AND FLUSHING WELL, NO S/S OF INFECTION OR INFILTRATION WITH LR INFUSING AT 80 ML/HR. SAFETY MEASURES IMPLEMENTED. PATIENT BED ALARM IS ON. HEAD OF BED ELEVATED. BED IS LOCKED, IN LOWEST POSITION AND SIDE RAILS UP. CALL LIGHT WITHIN REACH OF THE PATIENT. WILL CONTINUE TO MONITOR AND REASSESS FOR ANY CHANGES.
[2021-10-03 19:07] LABS: CHOLESTEROL 156 mg/dL (<200); HDL CHOLESTEROL 49 mg/dL (40-60); LDL 70 mg/dL (0-99); TRIGLYCERIDES 155 mg/dL (30-150)
[2021-10-03] MEDS: IV LR 1000 ML 1,000 ML IV PRN (19:07)
[2021-10-03] MEDS: ENOXAPARIN SODIUM 30 MG/0.3 ML DISP.SYRIN SQ SCH (19:08)
[2021-10-03] MEDS: AZITHROMYCIN 250 MG TABLET PO SCH (19:09)
[2021-10-03 20:00] VITALS: BP 153/77
[2021-10-03] MEDS: ACETAMINOPHEN 325 MG TABLET PO PRN (20:37)
[2021-10-03] MEDS: GABAPENTIN 300 MG CAPSULE PO SCH (21:10)
[2021-10-03] MEDS: ERGOCALCIFEROL (VITAMIN D 2) 50,000 UNIT CAPSULE PO SCH (21:10)
[2021-10-03] MEDS: CELECOXIB 100 MG CAPSULE PO SCH (21:10)
[2021-10-03] MEDS: INSULIN GLARGINE, 100 UNIT/ML CARTRIDGE SQ SCH (21:29)
[2021-10-04] VITALS: BP 105/54
[2021-10-04 04:00] VITALS: BP 139/61
--- NOTE | 2021-10-04 06:35 | NUR ---
RN NOTE NOTED IV LINE AT R HAND PULLSE OUT. REMOVED CATHETER, PLACED 2X2, NO BLEEDING NOTED. ASEPTIC TECHNIQUE WAS OBSERVED.
[2021-10-04 07:00] LABS: ALANINE AMINOTRANSFERASE 17 U/L (12-78); ALBUMIN 2.5 g/dL (3.4-5.0); ALKALINE PHOSPHATASE 80 U/L (46-116); ASPARTATE AMINOTRANSFERASE 24 U/L (15-37); BASOPHILS % (AUTO) 0.3 % (0.0-2.0); BILIRUBIN,TOTAL 0.5 mg/dL (0.2-1.0); CALCIUM, SERUM 8.6 mg/dL (8.5-10.1); CARBON DIOXIDE 23 mmol/L (21-32); CHLORIDE 102 mmol/L (98-107); CREATININE 1.4 mg/dL (0.6-1.3); EOSINOPHILS % (AUTO) 0.3 % (0.0-6.0); GLUCOSE 145 mg/dL (74-106); HEMATOCRIT 31 % (33-45); HEMOGLOBIN 10.3 g/dL (11.5-14.8); LYMPHOCYTES % (AUTO) 32.8 % (20.0-44.0); MAGNESIUM 1.5 mg/dL (1.8-2.4); MEAN CORPUSCULAR HGB CONC 33 g/dl (31.0-36.0); MEAN CORPUSCULAR VOLUME 87 fL (82-100); MONOCYTES # (AUTO) 0.5 K/uL (0.1-1.30); NEUTROPHILS # (AUTO) 3.5 K/uL (1.8-8.9); NEUTROPHILS % (AUTO) 58.6 % (43.0-81.0); PHOSPHORUS 4.6 mg/dL (2.5-4.9); PLATELET COUNT (AUTO) 277 K/uL (150-450); RED BLOOD CELL COUNT(AUTO) 3.63 MIL/uL (4.0-5.2); SODIUM SERUM 137 mmol/L (136-145); UREA NITROGEN, BLOOD 25 mg/dL (7-18)
[2021-10-04 07:11] LABS: CHOLESTEROL 129 mg/dL (<200); HDL CHOLESTEROL 42 mg/dL (40-60); IRON, SERUM 26 ug/dl (50-175); LDL 57 mg/dL (0-99); TOTAL IRON BINDING CAPACITY 230 ug/dl (250-450); TRIGLYCERIDES 168 mg/dL (30-150)
--- NOTE | 2021-10-04 07:18 | NUR ---
RN OPENING NOTE PATIENT RECEIVED IN BED, RESTING. PATIENT ON ROOM AIR WITH NO SIGNS OF LABORED BREATHING AT THIS TIME. TELE MONITOR ON, SINUS RHYTHM. LEFT FOREARM 18G IV IN PLACE, PATENT WITH NO SIGNS OF INFILTRATION RUNNING LR AT 80CC/HR. NO SIGNS OF DISTRESS NOTED AT THIS TIME. BED LOCKED AND IN LOWEST POSITION, 3 SIDE RAILS UP, CALL LIGHT WITHIN REACH, ALL SAFETY MEASURES IMPLEMENTED. WILL CONTINUE TO MONITOR.
[2021-10-04] MEDS: IV LR 1000 ML 1,000 ML IV PRN (07:26)
[2021-10-04 08:00] VITALS: BP 137/82
[2021-10-04] MEDS: ATORVASTATIN 40 MG TABLET PO SCH (08:21)
[2021-10-04] MEDS: PANTOPRAZOLE 40 MG TABLET.DR PO SCH (08:21)
[2021-10-04] MEDS: MEMANTINE HCL 5 MG TABLET PO SCH ×2 (08:21→16:41)
[2021-10-04] MEDS: METFORMIN 500 MG TABLET PO SCH ×2 (08:21→16:41)
[2021-10-04] MEDS: CELECOXIB 100 MG CAPSULE PO SCH ×2 (08:21→21:05)
[2021-10-04] MEDS: ASPIRIN EC 81 MG TABLET.DR PO SCH (08:22)
[2021-10-04] MEDS: ANASTROZOLE 1 MG TABLET PO SCH (08:22)
[2021-10-04] MEDS: MONTELUKAST SODIUM (10MG) 10 MG TABLET PO SCH (08:22)
[2021-10-04] MEDS: LINAGLIPTIN 5 MG TABLET PO SCH (08:22)
[2021-10-04] MEDS: LIPASE/PROTEASE/AMYLASE 1 EACH CAPSULE.DR PO SCH ×3 (08:22→17:03)
[2021-10-04] MEDS: DEXAMETHASONE SOD PHOSPHATE 10 MG/ML VIAL IV SCH (08:22)
[2021-10-04] MEDS: FLUTICASONE/VILANTEROL 1 EACH BLST.W.DEV IH SCH (08:29)
[2021-10-04] MEDS: INSULIN LISPRO/ASPART 100 UNIT/ML CARTRIDGE SQ SCH ×3 (09:06→17:02)
[2021-10-04] MEDS: Magnesium 1GM/D5W 100ML PREMIX 100 ML IV SCH ×2 (10:14→11:11)
[2021-10-04 12:00] VITALS: BP 131/81
[2021-10-04 16:00] VITALS: BP 112/66
[2021-10-04] MEDS: AZITHROMYCIN 250 MG TABLET PO SCH (18:13)
--- NOTE | 2021-10-04 18:26 | NUR ---
RN CLOSING NOTE PATIENT IN BED, RESTING. PATIENT ON ROOM AIR WITH NO SIGNS OF LABORED BREATHING AT THIS TIME. TELE MONITOR ON, SINUS RHYTHM. RIGHT FOREARM 22G IV IN PLACE, PATENT WITH NO SIGNS OF INFILTRATION. NO DISTRESS NOTED AT THIS TIME. BED LOCKED AND IN LOWEST POSITION, CALL LIGHT WITHIN REACH, 2 SIDE RAILS, ALL SAFETY MEASURES IMPLEMENTED. WILL ENDORSE TO CLOCKMAKER NURSE.
--- NOTE | 2021-10-04 19:46 | NUR ---
RN OPENING NOTES PATIENT IN BED, PATIENT ON ROOM AIR WITH NO SIGNS OF LABORED BREATHING/DISTRESS. TELE MONITOR READS SINUS RHYTHM. RIGHT FOREARM 22G IV, PATENT WITH NO SIGNS OF INFILTRATION. NO DISTRESS NOTED AT THIS TIME. BED LOCKED AND LOWEST POSITION, CALL LIGHT WITHIN REACH, SIDE RAILS UP X2. WILL CONTINUE TO MONITOR
[2021-10-04 21:00] VITALS: BP 111/58
[2021-10-04] MEDS: GABAPENTIN 300 MG CAPSULE PO SCH (21:06)
[2021-10-04] MEDS: ENOXAPARIN SODIUM 30 MG/0.3 ML DISP.SYRIN SQ SCH (21:08)
[2021-10-04] MEDS: INSULIN GLARGINE, 100 UNIT/ML CARTRIDGE SQ SCH (21:24)
--- NOTE | 2021-10-04 23:04 | NUR ---
RN NOTES: PATIENT IS CUBAN SPEAKER
[2021-10-05] VITALS: BP 131/62
[2021-10-05] MEDS: IV LR 1000 ML 1,000 ML IV PRN ×2 (00:36→19:37)
[2021-10-05 04:00] VITALS: BP 134/60
[2021-10-05 06:59] LABS: CALCIUM, SERUM 8.4 mg/dL (8.5-10.1); CARBON DIOXIDE 22 mmol/L (21-32); CHLORIDE 102 mmol/L (98-107); CREATININE 1.4 mg/dL (0.6-1.3); GLUCOSE 165 mg/dL (74-106); MAGNESIUM 1.8 mg/dL (1.8-2.4); POTASSIUM 4.4 mmol/L (3.5-5.1); SODIUM SERUM 136 mmol/L (136-145); UREA NITROGEN, BLOOD 34 mg/dL (7-18)
--- NOTE | 2021-10-05 07:30 | NUR ---
RN OPENING NOTES PATIENT IN BED AWAKE AND A/O X3. ON ROOM AIR TOLERATING WELL WITH NO SIGNS OF LABORED BREATHING/DISTRESS. TELE MONITOR CURRENTLY READING SINUS RHYTHM. RIGHT FOREARM 22G WITH LR AT 80ML/HR, PATENT WITH NO SIGNS OF INFILTRATION. NO DISTRESS NOTED AT THIS TIME. BED LOCKED AND LOWEST POSITION, CALL LIGHT WITHIN REACH, SIDE RAILS UP X2. WILL CONTINUE TO MONITOR
[2021-10-05 08:00] VITALS: BP 127/66
[2021-10-05] MEDS: FLUTICASONE/VILANTEROL 1 EACH BLST.W.DEV IH SCH (09:00)
[2021-10-05] MEDS: LIPASE/PROTEASE/AMYLASE 1 EACH CAPSULE.DR PO SCH ×3 (09:02→17:42)
[2021-10-05] MEDS: ASPIRIN EC 81 MG TABLET.DR PO SCH (09:03)
[2021-10-05] MEDS: LINAGLIPTIN 5 MG TABLET PO SCH (09:03)
[2021-10-05] MEDS: MONTELUKAST SODIUM (10MG) 10 MG TABLET PO SCH (09:03)
[2021-10-05] MEDS: ATORVASTATIN 40 MG TABLET PO SCH (09:03)
[2021-10-05] MEDS: ANASTROZOLE 1 MG TABLET PO SCH (09:03)
[2021-10-05] MEDS: CELECOXIB 100 MG CAPSULE PO SCH ×2 (09:03→21:35)
[2021-10-05] MEDS: DEXAMETHASONE SOD PHOSPHATE 10 MG/ML VIAL IV SCH (09:04)
[2021-10-05] MEDS: MEMANTINE HCL 5 MG TABLET PO SCH ×2 (09:04→16:18)
[2021-10-05] MEDS: PANTOPRAZOLE 40 MG TABLET.DR PO SCH (09:04)
[2021-10-05] MEDS: METFORMIN 500 MG TABLET PO SCH ×2 (09:04→16:18)
[2021-10-05] MEDS: INSULIN LISPRO/ASPART 100 UNIT/ML CARTRIDGE SQ SCH ×3 (09:12→17:55)
[2021-10-05 12:00] VITALS: BP 122/71
[2021-10-05] MEDS: SOD FERRIC GLUC 125 MG in IV NS 0.9% 100 ML IV SCH (14:51)
[2021-10-05 16:00] VITALS: BP 134/60
--- NOTE | 2021-10-05 19:02 | NUR ---
RN CLOSING NOTES PATIENT IN BED AWAKE AND A/O X3. ON ROOM AIR TOLERATING WELL WITH NO SIGNS OF LABORED BREATHING/DISTRESS. TELE MONITOR CURRENTLY READING SINUS RHYTHM. RIGHT FOREARM 22G WITH LR AT 80ML/HR, PATENT WITH NO SIGNS OF INFILTRATION. NO DISTRESS NOTED AT THIS TIME. DUE MEDS GIVEN. BED LOCKED AND LOWEST POSITION, CALL LIGHT WITHIN REACH, SIDE RAILS UP X2. WILL ENDORSE TO NEXT SHIFT FOR PETE.
[2021-10-05] MEDS: AZITHROMYCIN 250 MG TABLET PO SCH (19:36)
[2021-10-05 20:00] VITALS: BP 144/59
--- NOTE | 2021-10-05 20:00 | NUR ---
RN NOTE RECEIVED PATIENT IN BED, AWAKE, ALERT, AND VERBALLY RESPONSIVE. BREATHING EVEN AND UNLABORED. NOTED TO BE ON ROOM AIR. TOLERATING. NO SOB NOTED. DENIES CHEST PAIN. SKIN WARM AND DRY. AFEBRILE. NOTED WITH RFA 22G. PATENT. RUNNING LR AT 80 CC/HR. NO INFILTRATION NOTED. DENIES PAIN AT THIS TIME. PATIENT CLEANED, MAXIMUM ASSIST WITH 2 PERSONS. ALL NEEDS ATTENDED. BED LOW, IN LOCKED POSITION. CALL LIGHT WITHIN REACH.
[2021-10-05] MEDS: GABAPENTIN 300 MG CAPSULE PO SCH (21:35)
[2021-10-05] MEDS: ENOXAPARIN SODIUM 30 MG/0.3 ML DISP.SYRIN SQ SCH (21:55)
[2021-10-05] MEDS: INSULIN GLARGINE, 100 UNIT/ML CARTRIDGE SQ SCH (21:56)
--- NOTE | 2021-10-05 22:00 | NUR ---
RN NOTE BLOOD SUGAR 161 AT THIS TIME.
[2021-10-06 04:00] VITALS: BP 132/62
[2021-10-06] MEDS: IV LR 1000 ML 1,000 ML IV PRN (06:14)
[2021-10-06 07:05] LABS: CALCIUM, SERUM 8.8 mg/dL (8.5-10.1); MAGNESIUM 1.5 mg/dL (1.8-2.4); PHOSPHORUS 3.2 mg/dL (2.5-4.9); POTASSIUM 4.6 mmol/L (3.5-5.1)
[2021-10-06] MEDS: INSULIN LISPRO/ASPART 100 UNIT/ML CARTRIDGE SQ SCH ×3 (07:30→17:38)
--- NOTE | 2021-10-06 07:37 | NUR ---
RN OPENING NOTE PATIENT IS ASLEEP IN BED, EASY TO AROUSE. A/O X 3-2, BURUNDIAN SPEAKING. NO S/SX OF DISTRESS NOTED. NO SOB. BREATHING IS EVEN AND UNLABORED. NO COMPLAINTS OF PAIN AT THIS TIME. PT TOLERATING WELL ON ROOM AIR. IV ACCESS RFA#22 PATENT, INTACT WITH LR RUNNING @80MLS/HR. SAFETY MEASURES IN PLACE WITH BED LOCKED AT LOW POSITION AND SIDE RAILS UP X 2. WILL CONTINUE TO MONITOR PATIENT THROUGHOUT SHIFT.
[2021-10-06 07:47] LABS: HEMATOCRIT 33 % (33-45); LYMPHOCYTES # (AUTO) 1.5 K/uL (0.8-4.8); MEAN CORPUSCULAR HGB CONC 33 g/dl (31.0-36.0); MEAN CORPUSCULAR VOLUME 86 fL (82-100); PLATELET COUNT (AUTO) 282 K/uL (150-450); RED BLOOD CELL COUNT(AUTO) 3.86 MIL/uL (4.0-5.2); WHITE BLOOD COUNT (AUTO) 8.3 K/uL (4.3-11.0)
[2021-10-06] MEDS: PANTOPRAZOLE 40 MG TABLET.DR PO SCH (08:16)
[2021-10-06] MEDS: LIPASE/PROTEASE/AMYLASE 1 EACH CAPSULE.DR PO SCH ×3 (08:16→17:42)
[2021-10-06] MEDS: FLUTICASONE/VILANTEROL 1 EACH BLST.W.DEV IH SCH (08:19)
[2021-10-06] MEDS: CELECOXIB 100 MG CAPSULE PO SCH ×2 (08:20→21:37)
[2021-10-06] MEDS: MONTELUKAST SODIUM (10MG) 10 MG TABLET PO SCH (08:20)
[2021-10-06] MEDS: ANASTROZOLE 1 MG TABLET PO SCH (08:20)
[2021-10-06] MEDS: ASPIRIN EC 81 MG TABLET.DR PO SCH (08:20)
[2021-10-06] MEDS: MEMANTINE HCL 5 MG TABLET PO SCH ×2 (08:20→16:43)
[2021-10-06] MEDS: LINAGLIPTIN 5 MG TABLET PO SCH (08:21)
[2021-10-06] MEDS: METFORMIN 500 MG TABLET PO SCH ×2 (08:21→16:43)
[2021-10-06] MEDS: ATORVASTATIN 40 MG TABLET PO SCH (08:21)
[2021-10-06] MEDS: DEXAMETHASONE SOD PHOSPHATE 10 MG/ML VIAL IV SCH (08:21)
[2021-10-06 10:00] VITALS: BP 134/60
[2021-10-06] MEDS: Magnesium 1GM/D5W 100ML PREMIX 100 ML IV SCH ×2 (10:34→11:50)
[2021-10-06 11:53] LABS: NEUTROPHILS % (AUTO) 75.7 % (43.0-81.0)
[2021-10-06 11:58] LABS: LYMPHOCYTES % (AUTO) 19.1 % (20.0-44.0)
[2021-10-06 11:59] LABS: EOSINOPHILS % (AUTO) 0.1 % (0.0-6.0); MONOCYTES % (AUTO) 4.5 % (2.0-12.0)
[2021-10-06 12:00] LABS: BASOPHILS % (AUTO) 0.6 % (0.0-2.0); NEUTROPHILS # (AUTO) 6.1 K/uL (1.8-8.9)
[2021-10-06 12:01] LABS: MONOCYTES # (AUTO) 0.4 K/uL (0.1-1.30)
[2021-10-06 12:52] LABS: EOSINOPHILS % (MANUAL) 1 % (0-4); LYMPHOCYTES % (MANUAL) 19 % (16-48); MONOCYTES % (MANUAL) 3 % (0-11.0); NEUTROPHILS % (MANUAL) 77 (42-76)
[2021-10-06] MEDS: SOD FERRIC GLUC 125 MG in IV NS 0.9% 100 ML IV SCH (14:45)
[2021-10-06 16:00] VITALS: BP 147/75
[2021-10-06] MEDS: AZITHROMYCIN 250 MG TABLET PO SCH (18:58)
--- NOTE | 2021-10-06 19:01 | NUR ---
RN CLOSING NOTE PT IS RESTING IN BED, COMFORTABLY. NO S/SX OF DISTRESS NOTED. NO SOB. NO C/O PAIN AT THIS TIME. IV ACCESS REMOVED BY ACCIDENT PER PATIENT. SAFETY MEASURES MAINTAINED. ALL NEEDS MET THROUGHOUT SHIFT. WILL ENDORSE CONTINUITY OF CARE TO ONCOMING SHIFT.
--- NOTE | 2021-10-06 19:30 | NUR ---
RN OPENING NOTE RECEIVED PATIENT IN BED. A/OX3. TOLERATING ROOM AIR. RESPIRATIONS ARE EVEN AND UNLABORED. NO S/S SOB NOTED. NO C/O PAIN. IN NO APPARENT DISTRESS. NO IV ACCESS. INFORMED PATIENT I NEED TO PLACE A NEW IV ACCESS. BED IS LOW AND LOCKED, HOB ELEVATED IN SEMI FOWLERS, SIDE RIAL UP X3, CALL LIGHT WITHIN REACH.
[2021-10-06] MEDS: GABAPENTIN 300 MG CAPSULE PO SCH (21:37)
[2021-10-06] MEDS: ENOXAPARIN SODIUM 30 MG/0.3 ML DISP.SYRIN SQ SCH (21:38)
[2021-10-06] MEDS: INSULIN GLARGINE, 100 UNIT/ML CARTRIDGE SQ SCH (21:54)
[2021-10-06 22:00] VITALS: BP 123/79
[2021-10-07 04:00] VITALS: BP 149/60
[2021-10-07 06:34] LABS: BASOPHILS % (AUTO) 0.1 % (0.0-2.0); EOSINOPHILS % (AUTO) 0.1 % (0.0-6.0); HEMATOCRIT 28 % (33-45); HEMOGLOBIN 9.6 g/dL (11.5-14.8); LYMPHOCYTES # (AUTO) 1.1 K/uL (0.8-4.8); LYMPHOCYTES % (AUTO) 15.4 % (20.0-44.0); MEAN CORPUSCULAR HGB CONC 34 g/dl (31.0-36.0); MEAN CORPUSCULAR VOLUME 85 fL (82-100); MONOCYTES # (AUTO) 0.4 K/uL (0.1-1.30); NEUTROPHILS # (AUTO) 5.7 K/uL (1.8-8.9); NEUTROPHILS % (AUTO) 79.4 % (43.0-81.0); PLATELET COUNT (AUTO) 267 K/uL (150-450); RED BLOOD CELL COUNT(AUTO) 3.34 MIL/uL (4.0-5.2); WHITE BLOOD COUNT (AUTO) 7.1 K/uL (4.3-11.0)
--- NOTE | 2021-10-07 06:48 | NUR ---
RN CLOSING NOTE RESTING IN BED. A/OX3. REMAINS TOLERATING ROOM AIR. NO SOB, NO PAIN NO DISTRESS. NEW IV ACCESS IN RFA#20 RUNNING LR@80ML/HR. BED REMAINS LOW AND LOCKED, HOB ELEVATED IN SEMI FOWLERS, SIDE RIAL UP X3, CALL LIGHT WITHIN REACH. WILL ENDORSE TO ONCOMING SHIFT.
[2021-10-07 07:14] LABS: CALCIUM, SERUM 8.5 mg/dL (8.5-10.1); CREATININE 0.9 mg/dL (0.6-1.3); MAGNESIUM 1.7 mg/dL (1.8-2.4); PHOSPHORUS 3.3 mg/dL (2.5-4.9); POTASSIUM 4.6 mmol/L (3.5-5.1)
--- NOTE | 2021-10-07 07:14 | NUR ---
RN NOTE PATIENT IS IN BED WITH HOB AT SEMI FOWLERS POSITION. PATIENT IS ON ROOM AIR WITH NO SIGNS OF LABORED BREATHING. PATIENT IS AOX3. RFA 20 IS PATENT AND INTACT. BED IS LOCKED IN THE LOWEST POSITION, 3 GUARD RAILS RAISED, CALL HEATH WITHIN REACH, AND ALL HOSPITAL SAFETY PRECAUTIONS ARE BEING FOLLOWED. WILL CONTINUE TO MONITOR THROUGHOUT.
[2021-10-07] MEDS: IV LR 1000 ML 1,000 ML IV PRN ×2 (07:15→22:20)
[2021-10-07] MEDS: ATORVASTATIN 40 MG TABLET PO SCH (08:26)
[2021-10-07] MEDS: METFORMIN 500 MG TABLET PO SCH ×2 (08:27→17:07)
[2021-10-07] MEDS: DEXAMETHASONE SOD PHOSPHATE 10 MG/ML VIAL IV SCH (08:27)
[2021-10-07] MEDS: ASPIRIN EC 81 MG TABLET.DR PO SCH (08:27)
[2021-10-07] MEDS: LINAGLIPTIN 5 MG TABLET PO SCH (08:27)
[2021-10-07] MEDS: LIPASE/PROTEASE/AMYLASE 1 EACH CAPSULE.DR PO SCH ×3 (08:27→17:07)
[2021-10-07] MEDS: ANASTROZOLE 1 MG TABLET PO SCH (08:27)
[2021-10-07] MEDS: MEMANTINE HCL 5 MG TABLET PO SCH ×2 (08:27→17:07)
[2021-10-07] MEDS: PANTOPRAZOLE 40 MG TABLET.DR PO SCH (08:27)
[2021-10-07] MEDS: MONTELUKAST SODIUM (10MG) 10 MG TABLET PO SCH (08:27)
[2021-10-07] MEDS: CELECOXIB 100 MG CAPSULE PO SCH ×2 (08:27→22:15)
[2021-10-07 08:29] VITALS: BP 137/77
[2021-10-07] MEDS: INSULIN LISPRO/ASPART 100 UNIT/ML CARTRIDGE SQ SCH ×3 (08:29→17:10)
[2021-10-07] MEDS: FLUTICASONE/VILANTEROL 1 EACH BLST.W.DEV IH SCH (08:36)
[2021-10-07 10:00] VITALS: BP 137/77
[2021-10-07] MEDS: MAGNESIUM OXIDE 400 MG TABLET PO ONE ×2 (10:44→10:54)
[2021-10-07] MEDS ORDERED: MAGNESIUM OXIDE 400 MG TABLET PO ONE (11:00)
[2021-10-07 11:51] LABS: *SPE A/G RATIO 0.7 (0.7-1.7); *SPE ALPHA-1-GLOBULIN 0.3 g/dL (0.0-0.4); *SPE BETA GLOBULIN 0.9 g/dL (0.7-1.3); *SPE M-SPIKE Not Observed g/dL (Not Observed)
[2021-10-07] MEDS: SOD FERRIC GLUC 125 MG in IV NS 0.9% 100 ML IV SCH (14:19)
[2021-10-07 16:00] VITALS: BP 140/66
[2021-10-07] MEDS: AZITHROMYCIN 250 MG TABLET PO SCH (18:28)
--- NOTE | 2021-10-07 18:33 | NUR ---
RN NOTE PATIENT PLACED ON 2L NC.
--- NOTE | 2021-10-07 18:34 | NUR ---
RN NOTE PATIENT IS IN BED WITH HOB AT SEMI FOWLERS POSITION. PATIENT IS 2L NC WITH NO SIGNS OF LABORED BREATHING. PATIENT IS AOX3. RFA 20 IS PATENT AND INTACT. BED IS LOCKED IN THE LOWEST POSITION, 3 GUARD RAILS RAISED, CALL HEATH WITHIN REACH, AND ALL HOSPITAL SAFETY PRECAUTIONS ARE BEING FOLLOWED. ALL DUE MEDICATIONS GIVEN AND PATIENT REMAINED STABLE THROUGHOUT SHIFT. WILL ENDORSE TO SUPERVISOR FORMING AND TEMPERING RN.
--- NOTE | 2021-10-07 19:30 | NUR ---
RN NOTE RECEIVED PATIENT IN BED. A/OX3, ROMANIAN SPEAKING, ABLE TO MAKE BASIC NEEDS KNOWN. ON OXYGEN 2L/MIN VIA NASAL CANNULA. PATIENT IS EXPERIENCING SOME SOB. O2 SAT 88%, PLACED PATIENT ON 6L NC, O2 NOW 93-94%. NO C/O PAIN. NO DISTRESS. IV ACCES IN RFA#20 RUNNING LR@80ML/HR. BED IS LOW AND LOCKED, HOB ELEVATED IN SEMI FOWLERS, SIDE RIAL UPX2, BERYL LIGHT WITHIN REACH.
[2021-10-07 20:00] VITALS: BP 155/74
[2021-10-07 22:00] VITALS: BP 155/74
[2021-10-07] MEDS: INSULIN GLARGINE, 100 UNIT/ML CARTRIDGE SQ SCH (22:00)
[2021-10-07] MEDS: ENOXAPARIN SODIUM 30 MG/0.3 ML DISP.SYRIN SQ SCH (22:15)
[2021-10-07] MEDS: GABAPENTIN 300 MG CAPSULE PO SCH (22:16)
--- NOTE | 2021-10-07 22:17 | NUR ---
RN NOTE SCANNED NIGHT MEDICATIONS, CELEBREX 300MG, LOVENOX 30MG, NEURONTIN 300MG, DID NT SAVE D/T COMPUTER DYING. MANUAL BARCODE TO SHOW ADMINISTRATION. DID NOT ADMINISTER LANTUS 40 UNIT BS 109.
--- NOTE | 2021-10-08 00:42 | NUR ---
RN NOTE - TRANSFER OF CARE REPORT GIVEN TO JESSE RN FOR CONTINUATION OF CARE. PATIENT A/OX3, OXYGEN 6L/MIN NASAL CANNULA. NO RESP DISTRESS. NO PAIN. NO DISTRESS.
--- NOTE | 2021-10-08 00:45 | NUR ---
RN NOTE RECEIVED PATIENT IN BED RESTING SLEEPING ALERT ORIENTED X3 SALVADOREAN SPEAKING ON 6L OXYGEN VIA NASAL CANNULA O2:93% IV SITE IS ON RIGHT FOREARM INTACT PATENT ON LR IV HYDRATION 80CC/HR, SAFETY MEASURE IMPLEMENT HEAD OF THE BED ELEVATED BED IN LOW POSITION AND LOCKED CONTINUE TO MONITOR.
[2021-10-08 04:00] VITALS: BP 153/74
[2021-10-08 07:08] LABS: BASOPHILS % (AUTO) 0.1 % (0.0-2.0); EOSINOPHILS % (AUTO) 0.1 % (0.0-6.0); HEMATOCRIT 29 % (33-45); HEMOGLOBIN 9.7 g/dL (11.5-14.8); LYMPHOCYTES # (AUTO) 1.3 K/uL (0.8-4.8); LYMPHOCYTES % (AUTO) 15.8 % (20.0-44.0); MEAN CORPUSCULAR HGB CONC 34 g/dl (31.0-36.0); MEAN CORPUSCULAR VOLUME 85 fL (82-100); MONOCYTES # (AUTO) 0.4 K/uL (0.1-1.30); MONOCYTES % (AUTO) 4.6 % (2.0-12.0); NEUTROPHILS # (AUTO) 6.5 K/uL (1.8-8.9); NEUTROPHILS % (AUTO) 79.4 % (43.0-81.0); PLATELET COUNT (AUTO) 279 K/uL (150-450); WHITE BLOOD COUNT (AUTO) 8.2 K/uL (4.3-11.0)
[2021-10-08 07:20] LABS: CALCIUM, SERUM 8.5 mg/dL (8.5-10.1); MAGNESIUM 1.6 mg/dL (1.8-2.4); PHOSPHORUS 3.5 mg/dL (2.5-4.9); POTASSIUM 4.5 mmol/L (3.5-5.1)
[2021-10-08] MEDS: INSULIN LISPRO/ASPART 100 UNIT/ML CARTRIDGE SQ SCH ×3 (07:30→17:40)
[2021-10-08] MEDS: PANTOPRAZOLE 40 MG TABLET.DR PO SCH (07:46)
[2021-10-08] MEDS: LIPASE/PROTEASE/AMYLASE 1 EACH CAPSULE.DR PO SCH ×3 (07:50→17:11)
[2021-10-08] MEDS: LINAGLIPTIN 5 MG TABLET PO SCH (09:04)
[2021-10-08] MEDS: ASPIRIN EC 81 MG TABLET.DR PO SCH (09:05)
[2021-10-08] MEDS: MEMANTINE HCL 5 MG TABLET PO SCH ×2 (09:05→17:10)
[2021-10-08] MEDS: DEXAMETHASONE SOD PHOSPHATE 10 MG/ML VIAL IV SCH (09:05)
[2021-10-08] MEDS: MONTELUKAST SODIUM (10MG) 10 MG TABLET PO SCH (09:05)
[2021-10-08] MEDS: ANASTROZOLE 1 MG TABLET PO SCH (09:05)
[2021-10-08] MEDS: ATORVASTATIN 40 MG TABLET PO SCH (09:05)
[2021-10-08] MEDS: CELECOXIB 100 MG CAPSULE PO SCH ×2 (09:05→20:45)
[2021-10-08] MEDS: METFORMIN 500 MG TABLET PO SCH ×2 (09:05→17:11)
[2021-10-08] MEDS: FLUTICASONE/VILANTEROL 1 EACH BLST.W.DEV IH SCH (09:09)
[2021-10-08 10:11] VITALS: BP 153/74
[2021-10-08 10:14] VITALS: BP 153/74
[2021-10-08] MEDS: Magnesium 1GM/D5W 100ML PREMIX 100 ML IV SCH ×2 (10:29→11:18)
[2021-10-08] MEDS: SOD FERRIC GLUC 125 MG in IV NS 0.9% 100 ML IV SCH (15:09)
[2021-10-08 16:00] VITALS: BP 138/66
[2021-10-08] MEDS: IV LR 1000 ML 1,000 ML IV PRN (17:30)
--- NOTE | 2021-10-08 18:40 | NUR ---
RN CLOSING NOTE: PATIENT REMAIN ALERT ORIENTED X3, COOPERATIVE AND CALM, GEORGIAN SPEAKING, AND UNDERSTANDING [place], ON 6L OXYGEN VIA NASAL CANNULA O2:92% IV SITE IS ON RIGHT HAND INTACT PATENT ON LR IV 80CC/HR, SAFETY MEASURE IMPLEMENT HEAD OF THE BED ELEVATED BED IN LOW POSITION AND LOCKED, ALL MEDICATION DUE GIVEN, CHANGE POSITION q2 HR ENDURES NEXT COMING SHIFT FOR CONTINUES CARE AND MONITOR.
--- NOTE | 2021-10-08 19:45 | NUR ---
MS/RN NOTE RECEIVED PATIENT RESTING IN BED. AWAKE, ALERT AND ORIENTED X 3. ABLE TO MAKE NEEDS KNOWN. DENIES PAIN AT THIS TIME. CONTINUES ON O2 6L VIA NC WITH NO S/SX OF RESPIRATORY DISTRESS NOTED. IV ACCESS TO RIGHT FOREARM #20G INTACT AND PATENT. CONTINUES ON IVF LR @ 80ML/HR. CONTINUES ON PRECAUTIONS FOR COVID-19. CALL LIGHT WITHIN REACH. ASPIRATION, FALL AND SAFETY PRECAUTIONS MAINTAINED. WILL CONTINUE TO MONITOR.
[2021-10-08] MEDS: ENOXAPARIN SODIUM 30 MG/0.3 ML DISP.SYRIN SQ SCH (20:47)
--- NOTE | 2021-10-08 21:19 | NUR ---
MS/RN NOTE PATIENT CONTINUES ON O2 6L VIA NC. O2 SATS CURRENTLY 87-89% WITH SLIGHTLY LABORED BREATHING. APPLIED SIMPLE MASK WITH O2 INCREASED TO 10L. PATIENT CURRENTLY SATURATING AT 96%. WILL CONTINUE TO MONITOR.
[2021-10-08] MEDS: GABAPENTIN 300 MG CAPSULE PO SCH (21:30)
--- NOTE | 2021-10-08 21:45 | NUR ---
MS/RN NOTE PATIENT WITH BP 163/79. DENIES HEADACHE, CHEST PAIN, BLURRY VISION. NO BP MEDS ORDERED. PLACED CALL TO ON-CALL MD QUEZADA. AWAITING CALL BACK.
[2021-10-08 22:00] VITALS: BP 173/88
[2021-10-08] MEDS: INSULIN GLARGINE, 100 UNIT/ML CARTRIDGE SQ SCH (22:25)
--- NOTE | 2021-10-08 22:25 | NUR ---
MS/RN NOTE PAGED EPIC X 2 WITH NO CALL BACK FROM ON-CALL MD. WILL PLACE THIRD CALL.
--- NOTE | 2021-10-08 22:50 | NUR ---
MS/RN NOTE ON-CALL MD QUEZADA RETURNED CALL WITH NEW ORDER FOR HYDRALAZINE 10MG IV Q6HRS PRN FOR SBP > 160. ORDER INPUTTED AND CARRIED OUT.
[2021-10-08] MEDS: hydrALAZINE HCL IV 20 MG VIAL IV PRN (23:19)
[2021-10-09 01:00] VITALS: BP 150/68
[2021-10-09 04:00] VITALS: BP 185/74
[2021-10-09] MEDS: IV LR 1000 ML 1,000 ML IV PRN ×2 (04:56→18:05)
[2021-10-09] MEDS: hydrALAZINE HCL IV 20 MG VIAL IV PRN ×2 (05:33→21:05)
[2021-10-09 06:28] LABS: BASOPHILS % (AUTO) 0.2 % (0.0-2.0); EOSINOPHILS % (AUTO) 0.2 % (0.0-6.0); HEMATOCRIT 30 % (33-45); LYMPHOCYTES # (AUTO) 1.1 K/uL (0.8-4.8); MEAN CORPUSCULAR HGB CONC 34 g/dl (31.0-36.0); MEAN CORPUSCULAR VOLUME 85 fL (82-100); MONOCYTES # (AUTO) 0.6 K/uL (0.1-1.30); MONOCYTES % (AUTO) 6.1 % (2.0-12.0); NEUTROPHILS # (AUTO) 7.7 K/uL (1.8-8.9); NEUTROPHILS % (AUTO) 81.5 % (43.0-81.0); PLATELET COUNT (AUTO) 314 K/uL (150-450); RED BLOOD CELL COUNT(AUTO) 3.51 MIL/uL (4.0-5.2); WHITE BLOOD COUNT (AUTO) 9.4 K/uL (4.3-11.0)
--- NOTE | 2021-10-09 06:35 | NUR ---
MS/RN CLOSING NOTE PATIENT CURRENTLY SLEEPING IN BED. ALERT AND ORIENTED X 3. ABLE TO MAKE NEEDS KNOWN. DENIES PAIN AT THIS TIME. CONTINUES ON O2 10L VIA SIMPLE MASK WITH NO S/SX OF RESPIRATORY DISTRESS NOTED. IV ACCESS TO RIGHT HAND #20G INTACT AND PATENT. CONTINUES ON IVF LR @ 80ML/HR. CONTINUES ON PRECAUTIONS FOR COVID-19. CALL LIGHT WITHIN REACH. ASPIRATION, FALL AND SAFETY PRECAUTIONS MAINTAINED. WILL ENDORSE PLAN OF CARE TO ONCOMING SHIFT.
[2021-10-09 07:09] LABS: CALCIUM, SERUM 8.4 mg/dL (8.5-10.1); MAGNESIUM 1.6 mg/dL (1.8-2.4); PHOSPHORUS 2.8 mg/dL (2.5-4.9); POTASSIUM 4.3 mmol/L (3.5-5.1)
[2021-10-09] MEDS: INSULIN LISPRO/ASPART 100 UNIT/ML CARTRIDGE SQ SCH (07:30)
--- NOTE | 2021-10-09 07:30 | NUR ---
RN NOTES PATIENT RECEIVED IN BED ALERT AND ORIENTED X 3. WITH NO SIGN OF DISTRESS AT THIS TIME, ON CONTINUES OXYGEN 15L VIA NON REBREATHER MASK TOLERATING WELL NOT IN DISTRESS, NO BP TAKEN ON THE LEFT HAND . IV ACCESS TO RIGHT HAND #20G INTACT AND PATENT. CONTINUES ON IVF LR @ 80ML/HR. PRECAUTIONS FOR COVID-[address] SAFETY MEASURES IN PLACE CALL LIGHT WITHIN REACH, FALL AND SAFETY PRECAUTIONS MAINTAINED. BED LOCKED AND IN LOWEST POSITION WILL CONTINUE TO MONITOR
[2021-10-09 08:00] VITALS: BP 140/67
[2021-10-09] MEDS: LIPASE/PROTEASE/AMYLASE 1 EACH CAPSULE.DR PO SCH ×3 (08:49→18:36)
[2021-10-09] MEDS: CELECOXIB 100 MG CAPSULE PO SCH (08:49)
[2021-10-09] MEDS: MONTELUKAST SODIUM (10MG) 10 MG TABLET PO SCH (08:49)
[2021-10-09] MEDS: MEMANTINE HCL 5 MG TABLET PO SCH (08:49)
[2021-10-09] MEDS: DEXAMETHASONE SOD PHOSPHATE 10 MG/ML VIAL IV SCH (08:50)
[2021-10-09] MEDS: ATORVASTATIN 40 MG TABLET PO SCH (08:50)
[2021-10-09] MEDS: ANASTROZOLE 1 MG TABLET PO SCH (08:50)
[2021-10-09] MEDS: ASPIRIN EC 81 MG TABLET.DR PO SCH (08:50)
[2021-10-09] MEDS: LINAGLIPTIN 5 MG TABLET PO SCH (08:50)
[2021-10-09] MEDS: FLUTICASONE/VILANTEROL 1 EACH BLST.W.DEV IH SCH (08:56)
[2021-10-09] MEDS: METFORMIN 500 MG TABLET PO SCH (09:00)
[2021-10-09] MEDS: Magnesium 1GM/D5W 100ML PREMIX 100 ML IV SCH ×2 (09:03→10:24)
--- NOTE | 2021-10-09 09:15 | NUR ---
RN NOTES BLOOD SUGAR 78 HOLD METFORMIN AND INSULIN HUMALOG PER DOCTOR ELIAS
[2021-10-09] MEDS: PANTOPRAZOLE 40 MG TABLET.DR PO SCH (09:16)
[2021-10-09 11:14] LABS: ALBUMIN 2.2 g/dL (3.4-5.0); BILIRUBIN,DIRECT 0.2 mg/dL (0.0-0.2); BILIRUBIN,TOTAL 0.6 mg/dL (0.2-1.0)
--- NOTE | 2021-10-09 11:21 | NUR ---
RN NOTES PATIENT SEEN BY JADA, BED SIDE REPORT GIVEN, UPDATED REGARDING PT CURRENT CONDITION
--- NOTE | 2021-10-09 11:25 | NUR ---
RN NOTES PER PHARMACY UNABLE TO ADMINISTER REMDESIVER PHARMACY VERIFYING ORDER AT THIS TIME
[2021-10-09] MEDS ORDERED: IPRATROPIUM BROMIDE 14 GM INHALER (or 12.9 GM) IH PRN (11:30)
[2021-10-09] MEDS ORDERED: ALBUTEROL SULFATE INH 18 GM HFA.AER.AD IH PRN (11:30)
[2021-10-09 11:59] LABS: D-DIMER 2.96 mg/L(FEU (0.17-0.50)
[2021-10-09 12:42] LABS: C-REACTIVE PROTEIN 12.2 mg/dL (0.0-0.9)
[2021-10-09] MEDS: SOD FERRIC GLUC 125 MG in IV NS 0.9% 100 ML IV SCH (13:51)
[2021-10-09] MEDS ORDERED: REMDESIVIR (CHARGED) 200 MG, *LOADING DOSE 1 EA in IV NS 0.9% 210 ML IV ONE (15:30)
[2021-10-09 16:00] VITALS: BP 148/91
--- NOTE | 2021-10-09 18:47 | NUR ---
rn notes PATIENT IS IN BED ALERT AND ORIENTED X 2. WITH NO SIGN OF DISTRESS AT THIS TIME, ON CONTINUES OXYGEN 10L VIA NON REBREATHER MASK TOLERATING WELL NOT IN DISTRESS AT THIS TIME, SAT 92% , NO BP TAKEN ON THE LEFT HAND, IV ACCESS TO RIGHT HAND #20G INTACT AND PATENT. DISCONTINUED HUMOLOG, MAG 2G GIVEN ORDERED, 1ST DOSE OF REMDESIVIR ALSO GIVEN, CONTINUES ON IVF LR @ 80ML/HR. PRECAUTIONS FOR COVID-[address] SAFETY MEASURES IN PLACE CALL LIGHT WITHIN REACH, FALL AND SAFETY PRECAUTIONS MAINTAINED. BED LOCKED AND IN LOWEST POSITION WILL ENDORSE TO PHARMACIST IN CHARGE OWNER RN
[2021-10-09 20:00] VITALS: BP 187/90
--- NOTE | 2021-10-09 20:00 | NUR ---
RN NOTES RECEIVED PATIENT AOX3 ABLE TO VERBALIZED NEEDS IN YEMENI LANGUAGESPEAK VERY LITTLE MALIAN. PATIENT IS ON MEDSURG. STRICTLY ON DROPLET PRECAUTION DU TO + COVID PNA. LOW OXYGEN SATURATION NOTED NRB MASK INCREASE TO 15LPM SATURATION 93%. AFEBRILE. HYPERTENSION NOTED SBP >180'S PRN MEDICINE WILL BE GIVEN ORDERED. IV SITE ON RIGHT HAND G 20 RUNNING WITH LR @ 80 CC/HR. INTACT AND PATENT. KEPT PT CLEAN AND COMFORTABLE IN BED. PATIENT STATED THAT SHE HASNT HAD BM FOR 5 -6 DAYS. ENCOURAGED PATIENT TO WAIT FOR AWHILE AND WILL GIVE MEDS IF NEEDED. WILL CLOSELY MONITOR.
[2021-10-09] MEDS ORDERED: ENOXAPARIN SODIUM 40 MG/0.4 ML DISP.SYRIN SQ SCH (21:00)
[2021-10-09] MEDS: ACETAMINOPHEN 325 MG TABLET PO PRN (22:18)
--- NOTE | 2021-10-09 23:30 | NUR ---
RN NOTES CALLED AND SPOKE WITH DR. PILAR GARCIA REGARDING PATIENT HYPERTENSION SBP 180'S AND HYDRALAZINE ADMINISTERED BUT SBP STILL ON 178/ 70 MMHG. WITH NEW ORDER NOTED AND CARRIED OUT.
[2021-10-10] VITALS: BP 169/75
[2021-10-10] MEDS: hydrALAZINE HCL IV 20 MG VIAL IV PRN (00:37)
--- NOTE | 2021-10-10 01:40 | NUR ---
RN NOTES RECHECKED BP AFTER AN HOUR OF HYDRALAZINE 20 MG IVP BP AT THIS TIME 139/75 MEDICINE WAS EFFECTIVE. WILL CONTINUE TO MONITOR.
[2021-10-10 04:00] VITALS: BP 126/75
[2021-10-10] MEDS: IV LR 1000 ML 1,000 ML IV PRN (05:55)
--- NOTE | 2021-10-10 06:30 | NUR ---
RN NOTES PATIENT IS AOX2-3 ABLE TO VERBALIZED NEEDS, ANXIETY NOTED. CONTINUE ON DROPLET PRECAUTION. NRB @ 15 LPM KEPT IN PLACED. EPISODE OF PULLING OUT O2 NOTED. EDUCATE PATIENT REGARDING RESTRAINT AND PATIENT IS GETTING MORE ANXIOUS AND AGITATED. SATURATION KEPT BETWEEN 90-95%. BREATHING EVEN AND UNLABORED. DENIES PAIN. AFEBRILE. KEPT PT CLEAN AND COMFORTABLE IN BED. NEED CLOSELY MONITOR.
[2021-10-10 06:45] LABS: BASOPHILS % (AUTO) 0.2 % (0.0-2.0); EOSINOPHILS % (AUTO) 0.2 % (0.0-6.0); HEMATOCRIT 31 % (33-45); HEMOGLOBIN 10.5 g/dL (11.5-14.8); LYMPHOCYTES # (AUTO) 1.2 K/uL (0.8-4.8); LYMPHOCYTES % (AUTO) 11.8 % (20.0-44.0); MEAN CORPUSCULAR HGB CONC 34 g/dl (31.0-36.0); MEAN CORPUSCULAR VOLUME 84 fL (82-100); MONOCYTES # (AUTO) 0.8 K/uL (0.1-1.30); MONOCYTES % (AUTO) 7.7 % (2.0-12.0); NEUTROPHILS # (AUTO) 8.1 K/uL (1.8-8.9); NEUTROPHILS % (AUTO) 80.1 % (43.0-81.0); PLATELET COUNT (AUTO) 339 K/uL (150-450); RED BLOOD CELL COUNT(AUTO) 3.65 MIL/uL (4.0-5.2); WHITE BLOOD COUNT (AUTO) 10.1 K/uL (4.3-11.0)
[2021-10-10 07:27] LABS: ALBUMIN 2.3 g/dL (3.4-5.0); BILIRUBIN,DIRECT 0.3 mg/dL (0.0-0.2); BILIRUBIN,TOTAL 0.8 mg/dL (0.2-1.0); CALCIUM, SERUM 8.5 mg/dL (8.5-10.1); CREATININE 0.9 mg/dL (0.6-1.3); MAGNESIUM 1.8 mg/dL (1.8-2.4); PHOSPHORUS 2.6 mg/dL (2.5-4.9); TOTAL PROTEIN, SERUM 7.1 g/dL (6.4-8.2)
--- NOTE | 2021-10-10 07:30 | NUR ---
RN NOTE PT OBSERVED IN BED AWAKE, ON NRB 15 LPM, 02 SAT AT 92%. A/O X 2, AZERI SPEAKING ON TELE MONITOR SR HR OF 87. IV ON RIGHT HAND GUAGE #20 WITH LR @80CC/HR, PATENT AND INFUSING WELL. FIRST DOSE OF REMEDSIVIR GIVEN YESTERDAY. SAFETY MEASURES OBSERVED, BEDWHEELS LOCKED CALL LIGHT WITHIN REACH. WILL CONTINUE TO MONITOR.
[2021-10-10 08:00] VITALS: BP 130/61
[2021-10-10] MEDS: LIPASE/PROTEASE/AMYLASE 1 EACH CAPSULE.DR PO SCH ×3 (08:29→17:14)
[2021-10-10] MEDS: MONTELUKAST SODIUM (10MG) 10 MG TABLET PO SCH (08:29)
[2021-10-10] MEDS: ATORVASTATIN 40 MG TABLET PO SCH (08:29)
[2021-10-10] MEDS: ASPIRIN EC 81 MG TABLET.DR PO SCH (08:29)
[2021-10-10] MEDS: DEXAMETHASONE SOD PHOSPHATE 10 MG/ML VIAL IV SCH (08:30)
[2021-10-10] MEDS: PANTOPRAZOLE 40 MG TABLET.DR PO SCH (08:30)
[2021-10-10] MEDS: FLUTICASONE/VILANTEROL 1 EACH BLST.W.DEV IH SCH (08:30)
[2021-10-10] MEDS: ANASTROZOLE 1 MG TABLET PO SCH (08:30)
[2021-10-10] MEDS ORDERED: FUROSEMIDE 20 MG/2 ML VIAL IV ONE (10:30)
[2021-10-10 10:43] LABS: ABG BASE EXCESS 1.3 mmol/L; ABG OXYGEN SATURATION 90.8 % (92.0-98.5); ABG PCO2 29.8 mmHg (35.0-45.0); ABG PH 7.516 (7.350-7.450); ABG PO2 57.8 mmHg (75.0-100.0); AaDO2 481.3 mmHg; COHb 0.5 % (0.5-1.5); MetHb 0.3 % (0.0-1.5); O2Hb 90.1 % (94.0-97.0); SITE, ABG Right Radial; VENT MODE, BG NRB MASK
--- NOTE | 2021-10-10 11:00 | NUR ---
RN NOTE PER VANNA ELIAS ABG DONE ORDERED, RESULT RELAYED TO DR. NAVA.
--- NOTE | 2021-10-10 12:00 | NUR ---
RN NOTE RELAYED ABG RESULT TO DR. NAVA. PER DR. NAVA START PATIENT ON HIGH FLOW.
--- NOTE | 2021-10-10 15:59 | NUR ---
RN NOTE UPDATED RESPONISBLE REPUBLICAN REGARDING PATIENT CURRENT CONDITION.
[2021-10-10 16:00] VITALS: BP 136/80
[2021-10-10] MEDS ORDERED: TOCILIZUMAB 400 MG in IV NS 0.9% 80 ML IV ONE (16:00)
[2021-10-10] MEDS: REMDESIVIR (CHARGED) 100 MG in IV NS 0.9% 100 ML IV SCH (16:09)
[2021-10-10] MEDS: ENOXAPARIN SODIUM 40 MG/0.4 ML DISP.SYRIN SQ SCH ×2 (16:28→21:25)
[2021-10-10] MEDS ORDERED: ACETAMINOPHEN 325 MG TABLET PO ONE (17:30)
[2021-10-10] MEDS ORDERED: diphenhydrAMINE HCL 50 MG/ML VIAL IV ONE (17:30)
[2021-10-10] MEDS ORDERED: methylPREDNISolone SOD SUCC 40 MG/ML VIAL IV ONE (17:30)
[2021-10-10] MEDS ORDERED: TOCILIZUMAB 800 MG in IV NS 0.9% 80 ML IV ONE (18:00)
--- NOTE | 2021-10-10 19:14 | NUR ---
RN NOTE PT OBSERVED IN BED AWAKE, ON NRB 15 LPM WITH HF @60LPM WITH FI02 OF 100% 02 SAT AT 92%. A/O X 2, ESTONIAN SPEAKING ON TELE MONITOR SR HR OF 87. SECOND DOSE OF REMEDSIVIR GIVEN, ACTEMRA GIVEN. SAFETY MEASURES OBSERVED, BED WHEELS LOCKED CALL LIGHT WITHIN REACH. WILL CONTINUE TO MONITOR. WILL ENDORSE TO NOC SHIFT.
[2021-10-10 20:00] VITALS: BP 133/99
--- NOTE | 2021-10-10 20:09 | NUR ---
RECEIVED PT ON DOUBLE OXYGEN SET UP, HFNC 60L FIO2 100%+NRB. PT IS AWAKE O2 SAT 98%. CONTINUE TO MONITOR.
[2021-10-10] MEDS: ERGOCALCIFEROL (VITAMIN D 2) 50,000 UNIT CAPSULE PO SCH (21:24)
[2021-10-11] VITALS: BP 156/96
[2021-10-11] MEDS ORDERED: HALOPERIDOL DECANOATE IM 100 MG/ML AMPUL IM ONE ×2 (00:30→03:30)
[2021-10-11] MEDS ORDERED: HALOPERIDOL LACTATE INJ 5 MG/ML VIAL IM ONE (04:00)
--- NOTE | 2021-10-11 05:36 | NUR ---
RN notes Patient has fluctuating irregular heartbeat from 77 to 150bpm, with 36edt04% on non rebreather mask with O2 at 15lpm tolerating well. patient is lethargic, unable to swallow and non-arousable. Eyes open with no eye contact. Family at bedside for 2hours. Head of bed elevated. Transferred to [facility], endorsed to LISHA Nicole.
--- NOTE | 2021-10-11 06:17 | NUR ---
RN name In bed, alert and oriented with no distress noted, breathing even and unlabored. On high flow with non rebreather mask, O2sat 92 to 97% tolerating well. Vital signs wnl. On bilateral soft wrist restraints and release every two hours for hygiene, circulation and repositioning. Patient was very anxious. Shouting and calling most of the time. Called MD and obtained order for haldol 5mg IM, with slight help. Patient continuously calling and pulling out tubings even with restraints and haldol. No physical manifestation of pain or discomfort. Vietnamese speaking. Kept clean and dry. Will endorse to next shift for continuity of care.
--- NOTE | 2021-10-11 07:30 | NUR ---
NURSE OPENING NOTE PATIENT REMAIN IN STABLE CONDITION WITH HIGH FLOW NC AND NONREBREATHER MASK. 02 SAT 95% AND ABOVE. ALL SAFETY MEASURE IN PLACE. BED ON LOWEST POSITION WITH HOB ELEVATED AND 3 SIDE RAIL UP. CALL LIGHT WITHIN REACH. WILL CONTINUE TO MONITOR.
[2021-10-11 08:00] VITALS: BP 152/76
[2021-10-11 08:00] LABS: BASOPHILS % (AUTO) 0.1 % (0.0-2.0); HEMATOCRIT 33 % (33-45); HEMOGLOBIN 10.8 g/dL (11.5-14.8); LYMPHOCYTES # (AUTO) 0.7 K/uL (0.8-4.8); LYMPHOCYTES % (AUTO) 8.5 % (20.0-44.0); MEAN CORPUSCULAR HGB CONC 33 g/dl (31.0-36.0); MEAN CORPUSCULAR VOLUME 85 fL (82-100); MONOCYTES # (AUTO) 0.6 K/uL (0.1-1.30); MONOCYTES % (AUTO) 7.2 % (2.0-12.0); NEUTROPHILS # (AUTO) 7.1 K/uL (1.8-8.9); NEUTROPHILS % (AUTO) 84.2 % (43.0-81.0); PLATELET COUNT (AUTO) 388 K/uL (150-450); RED BLOOD CELL COUNT(AUTO) 3.85 MIL/uL (4.0-5.2); WHITE BLOOD COUNT (AUTO) 8.4 K/uL (4.3-11.0)
[2021-10-11 08:49] LABS: ALBUMIN 2.5 g/dL (3.4-5.0); BILIRUBIN,DIRECT 0.4 mg/dL (0.0-0.2); BILIRUBIN,TOTAL 1.1 mg/dL (0.2-1.0); CALCIUM, SERUM 8.5 mg/dL (8.5-10.1); CREATININE 1.1 mg/dL (0.6-1.3); MAGNESIUM 1.6 mg/dL (1.8-2.4); PHOSPHORUS 3.3 mg/dL (2.5-4.9); TOTAL PROTEIN, SERUM 7.3 g/dL (6.4-8.2)
[2021-10-11] MEDS: ANASTROZOLE 1 MG TABLET PO SCH (09:07)
[2021-10-11] MEDS: ASPIRIN EC 81 MG TABLET.DR PO SCH (09:07)
[2021-10-11] MEDS: ATORVASTATIN 40 MG TABLET PO SCH (09:07)
[2021-10-11] MEDS: MONTELUKAST SODIUM (10MG) 10 MG TABLET PO SCH (09:07)
[2021-10-11] MEDS: DEXAMETHASONE SOD PHOSPHATE 10 MG/ML VIAL IV SCH (09:11)
[2021-10-11] MEDS: PANTOPRAZOLE 40 MG TABLET.DR PO SCH (09:13)
[2021-10-11] MEDS: LIPASE/PROTEASE/AMYLASE 1 EACH CAPSULE.DR PO SCH ×3 (09:13→17:03)
[2021-10-11] MEDS ORDERED: MAGNESIUM OXIDE 400 MG TABLET PO ONE (11:00)
[2021-10-11 12:00] VITALS: BP 165/84
[2021-10-11] MEDS: FLUTICASONE/VILANTEROL 1 EACH BLST.W.DEV IH SCH (12:18)
[2021-10-11] MEDS ORDERED: IV NS 0.9% 1,000 ML IV ONE (15:00)
[2021-10-11 16:00] VITALS: BP 153/95
[2021-10-11] MEDS: REMDESIVIR (CHARGED) 100 MG in IV NS 0.9% 100 ML IV SCH (18:19)
--- NOTE | 2021-10-11 18:48 | NUR ---
RN CLOSING NOTE PATIENT REMAIN ON HIGH FLOW NC AT 80L/MIN WITH NONREBREATHER AT 15L/MIN. PATIENT O2 SAT IS 94% AND ABOVE. FIRST BAG OF REMDESIVIR IS GIVEN. PATIENT IS ON NS @ 40ML/HR. PATIENT PULL OFF BREATHING TREATMENT MULTIPLE TIMES. SPOKE TO SEVERAL FAMILY MEMBER AND MADE MULTIPLE ATTEMPT TO EXPLAIN THE IMPORTANT OF KEEP THE BREATHING TREATMENT ON. ALL SAFETY MEASURE IN PLACE. BED ON LOWEST POSITION WITH HOB ELEVATED AND 3 SIDE RAIL UP. CALL LIGHT WITHIN REACH. WILL CONTINUE TO MONITOR AND GIVE REPORT TO ON COMING NURSE.
--- NOTE | 2021-10-11 21:26 | NUR ---
Pt receive on HFNC 60 L 100% FIO2 + 15 LPM NRB, pt awake alert and agitated, pt is urdu speaking, Rt was called pt was desaturating to 88-89% , when pt takes deeper breaths SPO2 will go up to 92-94%. Will continue to monitor Addendum: 10/11/21 at 2130 by IVAN GREER RT Amended: Links added.
[2021-10-11] MEDS: ENOXAPARIN SODIUM 40 MG/0.4 ML DISP.SYRIN SQ SCH (21:27)
[2021-10-11] MEDS ORDERED: LORAZEPAM INJ 2 MG/ML VIAL IV ONE (23:00)
[2021-10-12] VITALS (73 sets, daily range): BP systolic 63–208; BP diastolic 30–177
[2021-10-12] MEDS: hydrALAZINE HCL IV 20 MG VIAL IV PRN (01:06)
[2021-10-12] MEDS: ACETAMINOPHEN 325 MG TABLET PO PRN (01:31)
[2021-10-12 02:08] LABS: ABG BASE EXCESS -0.1 mmol/L; ABG PH 7.568 (7.350-7.450); ABG PO2 43.2 mmHg (75.0-100.0); COHb 0.4 % (0.5-1.5); MetHb 0.3 % (0.0-1.5); O2Hb 90.3 % (94.0-97.0); SITE, ABG Right Radial; VENT MODE, BG HFNC
--- NOTE | 2021-10-12 03:04 | NUR ---
RN NOTES 0124 PATIENT HAS BEEN MOANING; ATIVAN WAS GIVEN EARLIER STILL MOANING AND TRYING TO REMOVE NRBM EVEN ON RESTRAINTS. PATIENT ON DOUBLE SET UP 15L NRBM AND HFNC 60L 100%FI02. SATURATION SUSTAINING 85-88%; CALLED JOLEEN QUEZADA NP OBTAINED ABG ORDER. SANTIAGO, PRIMARY RN NOTIFIED MD OF ABG RESULT AND OK FOR BIPAP SINCE PATIENT IS COVID POSITIVE AND FULL CODE WILL NEED TO BE INTUBATED AND TRANSFER TO ICU. SANTIAGO SPOKE TO FAMILY AND NOTIFIED VINCENT OF THE SITUATION ; AGREED OF THE ABOVE PLAN OF CARE. SPOKE TO BECCA IT INFRASTRUCTURE ARCHITECT TO OBTAIN ICU BED [address] QUEZADA TO NOTIFY HIM OF TRANSFER AND NEED FOR INTUBATION.
--- NOTE | 2021-10-12 03:35 | NUR ---
ICU/RN RECIEVED PT FROM [facility] IN RESPRITORY DISTRESS. ACCOMPANIED BY RT PT ON HIGH FLOW O2 60L 100% FIO2 AND NRB MASK @ 15L. 0340: DR. CARR AT BEDSIDE TO INTUBATE PT. 0343: ETOMIDATE 20MG IVP ADMINISTERED BY MAURI RN. 0344: SUCCINYLCHOLINE 150MG IVP ADMINISTERED BY MAURI RN. 0345: PT INTUBATED WITH 7.0 ETT 23CM @ THE LIP. VERIFIED BY AUSCULTAION BY DR. CARR AND CXR.
--- NOTE | 2021-10-12 03:59 | NUR ---
RN notes Received patient in bed, awake shouting and calling out. Patient was doing this the whole shift. Alert and oriented. Able to communicate needs. Needs an historic interpreter, kinyarwanda speaking. On bilateral wrist restraints, release every two hours for hygiene, circulation and repositioning. On high flow oxygen 60% and non-rebreather mask 15lpm. Noted O2 sat at 88-91%. Seen by RT. Called MD (Dr. Nader Cantu) for patient's restlessness and anxiety. Obtained order for ativan 0.5mg x1. Noted and carried out. After administration, patient was sleepy but kept on shouting and calling out. Called MD because O2sat was going down 81 to 88%. Ordered ABG, results relayed to MD and obtained order to transfer patient to ICU, do stat intubation, administer profopol titration and MSO4 2mg PRN. Noted and carried out. Spoke with brother Linda, agreed to intubate patient and to do what has to be done to save the patient. Endorsement given to ED. Transferred patient to ICU at around 03:30.
[2021-10-12] MEDS ORDERED: MORPHINE SULFATE INJ 2 MG/ML DISP.SYRIN IV PRN (04:00)
[2021-10-12] MEDS ORDERED: PROPOFOL 100 ML IV PRN (04:00)
--- NOTE | 2021-10-12 04:29 | NUR ---
ICU/RN: YELLOW METAL CHAIN NECKLACE PLACED IN NURSING STATION SAFE.
--- NOTE | 2021-10-12 04:30 | NUR ---
ICU/RN: CID CATH PLACED VIA STERILE PROCEDURE. CLOUDY KEYA URINE RETURNED TO DRAINAGE BAG. PT TOLERATED WELL.
[2021-10-12] MEDS ORDERED: PHENYLEPHRINE 10 MG/ML VIAL ONE (05:18)
--- NOTE | 2021-10-12 05:30 | NUR ---
ICU/RN BP LOW. NEOSYNEPHRINE STARTED PER ORDERS.
[2021-10-12] MEDS: PHENYLEPHRINE 100 MG in IV NS 0.9% 240 ML IV PRN ×2 (05:31→10:57)
--- NOTE | 2021-10-12 06:22 | NUR ---
Pt receive on HFNC 60 L 100% + NRB 15 LPM, pt was agitated SPO2 will go up and down from 88-94%, around 0130 pt desaturated ABG done , PH 7.56 PAO2 43, pt got intubated with 7.0 @23 , vent setting AC 16 500 +5 100% Addendum: 10/12/21 at 0627 by IVAN GREER RT Amended: Links added. Addendum: 10/12/21 at 0636 by IVAN GREER RT ABG done 1 hour after intubation PH 7.36 , PCO2 39, PO2 54.9, HCO3 21.6 SAO2 84 %, ABG machine is not uploading results, ABG results attach to pt chart, LISHA youssef
[2021-10-12 06:56] LABS: BASOPHILS % (AUTO) 0.1 % (0.0-2.0); EOSINOPHILS % (AUTO) 0.1 % (0.0-6.0); HEMATOCRIT 34 % (33-45); HEMOGLOBIN 10.6 g/dL (11.5-14.8); LYMPHOCYTES % (AUTO) 2.7 % (20.0-44.0); MEAN CORPUSCULAR HGB CONC 32 g/dl (31.0-36.0); MEAN CORPUSCULAR VOLUME 88 fL (82-100); MONOCYTES # (AUTO) 0.8 K/uL (0.1-1.30); MONOCYTES % (AUTO) 2.4 % (2.0-12.0); NEUTROPHILS # (AUTO) 33.4 K/uL (1.8-8.9); NEUTROPHILS % (AUTO) 94.7 % (43.0-81.0); PLATELET COUNT (AUTO) 499 K/uL (150-450); RED BLOOD CELL COUNT(AUTO) 3.84 MIL/uL (4.0-5.2)
[2021-10-12 06:58] LABS: WHITE BLOOD COUNT (AUTO) 35.3 K/uL (4.3-11.0)
[2021-10-12 06:59] LABS: ALANINE AMINOTRANSFERASE 17 U/L (12-78); ALBUMIN 2.4 g/dL (3.4-5.0); ALKALINE PHOSPHATASE 140 U/L (46-116); ASPARTATE AMINOTRANSFERASE 34 U/L (15-37); BILIRUBIN,DIRECT 0.3 mg/dL (0.0-0.2); BILIRUBIN,TOTAL 1.1 mg/dL (0.2-1.0); CALCIUM, SERUM 8.4 mg/dL (8.5-10.1); CARBON DIOXIDE 23 mmol/L (21-32); CHLORIDE 101 mmol/L (98-107); CREATININE 1.7 mg/dL (0.6-1.3); MAGNESIUM 1.8 mg/dL (1.8-2.4); PHOSPHORUS 2.7 mg/dL (2.5-4.9); POTASSIUM 3.7 mmol/L (3.5-5.1); SODIUM SERUM 138 mmol/L (136-145); TOTAL PROTEIN, SERUM 6.8 g/dL (6.4-8.2); UREA NITROGEN, BLOOD 41 mg/dL (7-18)
[2021-10-12 07:03] LABS: GLUCOSE 354 mg/dL (74-106)
[2021-10-12] MEDS: PROPOFOL 100 ML IV PRN ×4 (07:09→19:32)
--- NOTE | 2021-10-12 07:16 | NUR ---
ICU/RN: ENDORSED CRITICAL WBC TO DAYSHIFT.
[2021-10-12 07:21] LABS: BAND % (MANUAL) 5 % (0.0-5.0); LYMPHOCYTES % (MANUAL) 3 % (16-48); MONOCYTES % (MANUAL) 3 % (0-11.0); NEUTROPHILS % (MANUAL) 89 (42-76)
[2021-10-12] MEDS ORDERED: PHARMACY TO CHANGE PO MEDS TO GT/NG XX PRN (08:30)
[2021-10-12] MEDS ORDERED: ACETAMINOPHEN 650 MG/20.3 ML UDC PO PRN (08:30)
[2021-10-12] MEDS: DEXAMETHASONE SOD PHOSPHATE 10 MG/ML VIAL IV SCH (08:43)
[2021-10-12] MEDS: ENOXAPARIN SODIUM 40 MG/0.4 ML DISP.SYRIN SQ SCH ×2 (08:44→20:18)
[2021-10-12] MEDS: PANTOPRAZOLE 40 MG/PACK PACK NG SCH (08:55)
[2021-10-12] MEDS: FLUTICASONE/VILANTEROL 1 EACH BLST.W.DEV IH SCH (09:00)
[2021-10-12] MEDS: ASPIRIN 81 MG TAB.CHEW NG SCH (09:08)
[2021-10-12] MEDS: ATORVASTATIN 40 MG TABLET NG SCH (09:09)
[2021-10-12] MEDS: MONTELUKAST SODIUM (10MG) 10 MG TABLET NG SCH (09:09)
[2021-10-12] MEDS: HYDROCORTISONE SOD SUCCINATE 100 MG/2 ML VIAL IV SCH ×3 (09:11→20:18)
--- NOTE | 2021-10-12 10:00 | NUR ---
PEEP changed to 9 by RT.
[2021-10-12] MEDS: ANASTROZOLE 1 MG TABLET NG SCH (10:15)
--- NOTE | 2021-10-12 10:15 | NUR ---
OGT inserted per MD order. Checked placement using syringe by injecting 30cc of air and heard a swooshing sound. Tolerated well.
--- NOTE | 2021-10-12 10:30 | NUR ---
BREO not given patient intubated
[2021-10-12] MEDS ORDERED: SUCCINYLCHOLINE CHLORIDE 20 MG/ML VIAL IV ONE (12:06)
[2021-10-12] MEDS ORDERED: ETOMIDATE 2 MG/ML VIAL IV ONE (12:06)
[2021-10-12] MEDS: ZOSYN IVPB 2.25 G in IV D5W 50ml IV SCH ×3 (12:46→23:44)
[2021-10-12] MEDS: LIPASE/PROTEASE/AMYLASE 1 EACH CAPSULE.DR NG SCH ×2 (13:00→18:00)
[2021-10-12] MEDS: VANCOMYCIN HCL 0.75 GM in IV D5W 250 ML IV SCH (13:27)
[2021-10-12 13:44] LABS: C-REACTIVE PROTEIN 6.9 mg/dL (0.0-0.9)
--- NOTE | 2021-10-12 14:00 | NUR ---
Patient did not tolerate Fio2 85%. Went back to Fio2 100%
[2021-10-12] MEDS: IV NS 0.9% 250 ML IV PRN (18:24)
--- NOTE | 2021-10-12 18:39 | NUR ---
RN CLOSING NOTE Patient is in bed sedated. Intubated earlier this morning. ETT 7.0 AC 16, TV 500 FIO2 100% PEEP 9. Patient's tele reading now SR 90s. On a FC 200ml cloudy yellow urine. On bilateral soft wrist restraints no signs of skin integrity issues. DAYSI Midline running Propofol 35mcg and Jeancarlos 0.8mcg. Tolerating well. O2 sat now at 97%. No signs of pain or discomfort. Repositioned q2h. HOB elevated. Suction as needed. Kept clean and dry. Will endorse to manufacturing shift supervisor nurse for sourav.
--- NOTE | 2021-10-12 18:52 | NUR ---
Blood culture collected and picked up urine specimen by laborer landscape
--- NOTE | 2021-10-12 19:55 | NUR ---
RCVD PT ORALLY INTUBATED WITH 7.0 SECURED @23 CM LIP LINE ON VENT WITH THE SETTINGS OF AC 16, VT 500, FIO2 100% PEEP 9 . SUCTIONED MODERATE AMOUNT OF GARCIA THICK SECRETIONS. VENT PLUGGED INTO RED OUTLET. VENT ALARMS ON AND AUDIBLE. WILL CONTINUE TO MONITOR T/O SHIFT.
--- NOTE | 2021-10-12 20:00 | NUR ---
ICU NOTES Received patient sedated intubated to mechanical vent on full vent support.Vent settings well tolerated.Sedated on Diprivan gtt at 35 mcg.SR with Jeancarlos Synephrine gtt for BP support and will titrate accordingly.OGT patent and clamped.NPO status.FC to gravity.Turned and repositioned.No acute distress noted.
[2021-10-13] VITALS (93 sets, daily range): BP systolic 91–153; BP diastolic 32–89
[2021-10-13] MEDS ORDERED: BLOOD SUGAR DIAGNOSTIC 1 EACH STRIP IN SCH
--- NOTE | 2021-10-13 00:05 | NUR ---
ICU NOTES Patient FSBS 568.No coverage ordered.BHANU Singleton notified and updated of patient status. Orders received and carried out.Patient in no acute distress.VS stable.
[2021-10-13] MEDS: BLOOD SUGAR DIAGNOSTIC 1 EACH STRIP IN SCH ×5 (00:08→23:38)
[2021-10-13] MEDS: INSULIN REGULAR, HUMAN 100 UNIT/ML 3 ML VIAL SQ PRN ×6 (00:09→23:42)
[2021-10-13] MEDS: PROPOFOL 100 ML IV PRN ×6 (00:36→21:39)
--- NOTE | 2021-10-13 04:00 | NUR ---
ICU NOTES Patient vs stable.SR.AM CARE done.Oral care done.Turned and repositioned.Patient desat easily to low 80's with activity.RT aware and at bedside.
[2021-10-13] MEDS: IV NS 0.9% 250 ML IV PRN (04:16)
[2021-10-13 04:54] LABS: HEMATOCRIT 30 % (33-45); HEMOGLOBIN 9.6 g/dL (11.5-14.8); LYMPHOCYTES # (AUTO) 0.7 K/uL (0.8-4.8); LYMPHOCYTES % (AUTO) 2.4 % (20.0-44.0); MEAN CORPUSCULAR HGB CONC 32 g/dl (31.0-36.0); MEAN CORPUSCULAR VOLUME 87 fL (82-100); MONOCYTES # (AUTO) 0.5 K/uL (0.1-1.30); MONOCYTES % (AUTO) 1.7 % (2.0-12.0); NEUTROPHILS # (AUTO) 28.1 K/uL (1.8-8.9); NEUTROPHILS % (AUTO) 95.9 % (43.0-81.0); PLATELET COUNT (AUTO) 405 K/uL (150-450); RED BLOOD CELL COUNT(AUTO) 3.44 MIL/uL (4.0-5.2); WHITE BLOOD COUNT (AUTO) 29.3 K/uL (4.3-11.0)
[2021-10-13 05:03] LABS: ALANINE AMINOTRANSFERASE 16 U/L (12-78); ALBUMIN 2.1 g/dL (3.4-5.0); ALKALINE PHOSPHATASE 146 U/L (46-116); ASPARTATE AMINOTRANSFERASE 29 U/L (15-37); BILIRUBIN,DIRECT 0.4 mg/dL (0.0-0.2); BILIRUBIN,TOTAL 0.8 mg/dL (0.2-1.0); CALCIUM, SERUM 7.9 mg/dL (8.5-10.1); CARBON DIOXIDE 25 mmol/L (21-32); CHLORIDE 101 mmol/L (98-107); CREATININE 2.2 mg/dL (0.6-1.3); MAGNESIUM 2.2 mg/dL (1.8-2.4); PHOSPHORUS 4.4 mg/dL (2.5-4.9); POTASSIUM 4.2 mmol/L (3.5-5.1); SODIUM SERUM 136 mmol/L (136-145); TOTAL PROTEIN, SERUM 6.1 g/dL (6.4-8.2); UREA NITROGEN, BLOOD 59 mg/dL (7-18)
[2021-10-13] MEDS: HYDROCORTISONE SOD SUCCINATE 100 MG/2 ML VIAL IV SCH ×3 (05:18→21:00)
[2021-10-13] MEDS: ZOSYN IVPB 2.25 G in IV D5W 50ml IV SCH ×4 (05:19→23:34)
[2021-10-13 05:29] LABS: GLUCOSE 530 mg/dL (74-106)
[2021-10-13 06:18] LABS: CREATINE KINASE, TOTAL 75 U/L (26-192); FERRITIN 1863 ng/mL (8-388)
--- NOTE | 2021-10-13 06:30 | NUR ---
ICU NOTES Patient resting in no acute distress.O2 saturation went up to 96%.SR.Diprivan infusing at 35 mcg. Jeancarlos Synephrine titrated down to 0.6 mcg both infusing well.Site intact.AM Labs resulted BLOOD GLUCOSE 530 but Finger stick blood sugar 409 covered per protocol.Nader Cantu NP made aware, No further orders received.Keep safe and comfortable.
[2021-10-13] MEDS: LIPASE/PROTEASE/AMYLASE 1 EACH CAPSULE.DR NG SCH ×3 (08:00→17:49)
--- NOTE | 2021-10-13 08:49 | NUR ---
RN NOTES PER DIRECTOR OF FINANCIAL PLANNING PATIENT DOES NOT NEED SEDATION VACATION TODAY, GOAL IS TITRATE FIO2 -90 %, RT NOTIFIED.
--- NOTE | 2021-10-13 08:49 | NUR ---
RN NOTES ACCORDING ABG RESULT FIO2-IS 100% AT THIS NO CHANGE PER SENIOR WEB SERVICES DEVELOPER DR LEE.
[2021-10-13] MEDS: FLUTICASONE/VILANTEROL 1 EACH BLST.W.DEV IH SCH (09:00)
[2021-10-13] MEDS: ANASTROZOLE 1 MG TABLET NG SCH ×2 (09:00→11:50)
--- NOTE | 2021-10-13 10:32 | NUR ---
rn notes called grandson name William and get consent form for picc line insertion, co-sign with charge nurse Waqar.
[2021-10-13] MEDS: PHENYLEPHRINE 100 MG in IV NS 0.9% 240 ML IV PRN (11:31)
[2021-10-13] MEDS: PANTOPRAZOLE 40 MG/PACK PACK NG SCH (11:39)
[2021-10-13] MEDS: DEXAMETHASONE SOD PHOSPHATE 10 MG/ML VIAL IV SCH (11:39)
[2021-10-13] MEDS: ATORVASTATIN 40 MG TABLET NG SCH (11:40)
[2021-10-13] MEDS: MONTELUKAST SODIUM (10MG) 10 MG TABLET NG SCH (11:40)
[2021-10-13] MEDS: ASPIRIN 81 MG TAB.CHEW NG SCH (11:40)
[2021-10-13] MEDS: ENOXAPARIN SODIUM 40 MG/0.4 ML DISP.SYRIN SQ SCH ×2 (11:41→21:01)
[2021-10-13] MEDS: REMDESIVIR (CHARGED) 100 MG in IV NS 0.9% 100 ML IV SCH (13:41)
[2021-10-13] MEDS: VANCOMYCIN HCL 0.75 GM in IV D5W 250 ML IV SCH (14:02)
--- NOTE | 2021-10-13 14:03 | NUR ---
rn notes bs-369mg/dl coverage given, assist turn and reposition q 2 hr.
--- NOTE | 2021-10-13 14:39 | NUR ---
ABG RESULTS ARE NOT TRANSFERRING INTO [employer]. ABG RESULTS ON SETTINGS AC28, 480, 100% +11 PEEP PH 7.35 CO2 45.4 PO2 71.3 HCO3 24.9 BE -0.8
--- NOTE | 2021-10-13 18:18 | NUR ---
rn notes bs-435mg/dl on npo sliding scale, administered 10 units of insulin. also md notified waiting for respond.
--- NOTE | 2021-10-13 18:59 | NUR ---
RN NOTES get respond back from hospitalist change sliding scale, and given coverage, order taken and carried out. pm care done, due medication administered, rechecked soft restrain bilateral wrist, assist turn and reposition q 2hr. infusing suad 0.2mcg/kg/hr, and Diprivan 50mcg/kg/hr on left picc line intact. Heath draining yellow output. endorsed oncoming nurse follow plan of care.
[2021-10-13] MEDS ORDERED: DEXTROSE 50%-WATER 50 ML DISP.SYRIN IV PRN ×2 (19:00)
--- NOTE | 2021-10-13 19:35 | NUR ---
RN NOTES RECEIVED PATIENT SEDATED ON BED. ON ETT7.0 AC MODE 16 TV 500 FIO2 100% AND PEEP 9 TOLERATED WELL SATURATION 100%. DROPLET PRECAUTION STRICTLY IMPLEMENTED DUE TO COVID + PNA. AFEBRILE. VSS WITH PRESSOR. SR ON MONITOR. IV SITE ON DAYSI AND AND EVELYN PICC LINE RUNNING WITH PROPOFOL@ 50 MCG/KG/MIN AND NEOSYNEPHRINE RECEIVED @ .2 MCG/KG/MIN. TITRATED PROTOCOL ORDER. OGT KEPT IN PLACED PATENCY CHECKED. PATIENT HAS CID CATH DRAINED VIA GRAVITY KEPT OFF FROM THE FLOOR. KEPT PT CLEAN AND COMFORTABLE IN BED. WILL CONTINUE TO MONITOR.
--- NOTE | 2021-10-13 20:06 | NUR ---
RCVD PT ORALLY INTUBATED WITH 7.0 SECURED @23 CM LIP LINE ON VENT WITH THE SETTINGS OF AC 28, VT 480, FIO2 100% PEEP 11 . SUCTIONED MODERATE AMOUNT OF GARCIA THICK SECRETIONS. VENT PLUGGED INTO RED OUTLET. VENT ALARMS ON AND AUDIBLE. WILL CONTINUE TO MONITOR T/O SHIFT.
--- NOTE | 2021-10-13 23:10 | NUR ---
TITRATE FIO2 FROM 100% TO 90%. SPO2 98%. LISHA GRAVES NOTIFIED. WILL CONTINUE TO MONITOR T/O SHIFT.
[2021-10-14] VITALS (55 sets, daily range): BP systolic 93–144; BP diastolic 43–75
[2021-10-14] MEDS: PROPOFOL 100 ML IV PRN ×10 (00:39→21:47)
[2021-10-14] MEDS: IV NS 0.9% 250 ML IV PRN (02:38)
--- NOTE | 2021-10-14 03:49 | NUR ---
TITRATE O2 TO 80%, LISHA GRAVES NOTIFIED. SPO2 97%, WILL CONTINUE TO MONITOR T/O SHIFT.
[2021-10-14 04:56] LABS: BASOPHILS % (AUTO) 0.1 % (0.0-2.0); EOSINOPHILS % (AUTO) 0.1 % (0.0-6.0); HEMATOCRIT 29 % (33-45); HEMOGLOBIN 9.7 g/dL (11.5-14.8); LYMPHOCYTES # (AUTO) 0.5 K/uL (0.8-4.8); LYMPHOCYTES % (AUTO) 2.1 % (20.0-44.0); MEAN CORPUSCULAR HGB CONC 34 g/dl (31.0-36.0); MEAN CORPUSCULAR VOLUME 85 fL (82-100); MONOCYTES # (AUTO) 0.4 K/uL (0.1-1.30); MONOCYTES % (AUTO) 1.9 % (2.0-12.0); NEUTROPHILS # (AUTO) 22.6 K/uL (1.8-8.9); NEUTROPHILS % (AUTO) 95.8 % (43.0-81.0); PLATELET COUNT (AUTO) 323 K/uL (150-450); RED BLOOD CELL COUNT(AUTO) 3.37 MIL/uL (4.0-5.2); WHITE BLOOD COUNT (AUTO) 23.6 K/uL (4.3-11.0)
[2021-10-14 05:02] LABS: ALANINE AMINOTRANSFERASE 16 U/L (12-78); ALKALINE PHOSPHATASE 145 U/L (46-116); ASPARTATE AMINOTRANSFERASE 24 U/L (15-37); BILIRUBIN,TOTAL 0.6 mg/dL (0.2-1.0); CALCIUM, SERUM 7.7 mg/dL (8.5-10.1); CARBON DIOXIDE 27 mmol/L (21-32); CHLORIDE 101 mmol/L (98-107); CREATININE 1.7 mg/dL (0.6-1.3); GLUCOSE 320 mg/dL (74-106); MAGNESIUM 2.4 mg/dL (1.8-2.4); PHOSPHORUS 2.9 mg/dL (2.5-4.9); POTASSIUM 3.7 mmol/L (3.5-5.1); SODIUM SERUM 138 mmol/L (136-145); TOTAL PROTEIN, SERUM 6.2 g/dL (6.4-8.2); UREA NITROGEN, BLOOD 60 mg/dL (7-18)
[2021-10-14 05:37] LABS: CREATINE KINASE, TOTAL 24 U/L (26-192); FERRITIN 1601 ng/mL (8-388)
[2021-10-14] MEDS: HYDROCORTISONE SOD SUCCINATE 100 MG/2 ML VIAL IV SCH ×2 (05:41→12:50)
[2021-10-14] MEDS: INSULIN REGULAR, HUMAN 100 UNIT/ML 3 ML VIAL SQ PRN ×3 (05:59→18:01)
[2021-10-14] MEDS: BLOOD SUGAR DIAGNOSTIC 1 EACH STRIP IN SCH ×3 (05:59→18:02)
[2021-10-14] MEDS: ZOSYN IVPB 2.25 G in IV D5W 50ml IV SCH (06:00)
--- NOTE | 2021-10-14 06:30 | NUR ---
RN NOTES PATIENT STARTED TO GET AGITATED MORE. CALLED AND SPOKE TO DR. PILAR GARCIA AND GOT AN ORDER TO OK TO INCREASE PROPOFOL TO 100 MCG/KG/MIN PROTOCOL ORDER. PATIENT IS VERY TACHYPNEIC AND FIGHTING TO VENT. INCREASED PROPOFOL ORDERED. PATIETN IS CLEAN AND DRY. PRESSOR REMAINED OFF. VSS. CONTINUE TOLERATED IV ATB. DROPLET PRECAUTION OBSERVED. WILL ENDORSED CONTINUITY OF CARE TO AM NURSE.
--- NOTE | 2021-10-14 07:00 | NUR ---
RN NOTES RECEIVED PATIENT ON THE BED, SEDATED , TOLERAING VENT SETTING WELL, O2 SAT WNL, DROPLET PRECAUTION STRICTLY IMPLEMENTED DUE TO COVID + PNA. SR ON MONITOR HR IN 80'S , IV SITE ON DAYSI AND AND EVELYN PICC LINE RUNNING WITH PROPOFOL@ 75 MCG/KG/MIN RUNNING , TITRATED PROTOCOL ORDER. OGT KEPT IN PLACED PATENCY CHECKED. PATIENT HAS CID CATH DRAINING TO VIA GRAVITY KEPT OFF FROM THE FLOOR. KEPT PT CLEAN AND COMFORTABLE IN BED. WILL CONTINUE TO MONITOR.
[2021-10-14] MEDS: PANTOPRAZOLE 40 MG/PACK PACK NG SCH (08:26)
[2021-10-14] MEDS: DEXAMETHASONE SOD PHOSPHATE 10 MG/ML VIAL IV SCH (08:27)
[2021-10-14] MEDS: ATORVASTATIN 40 MG TABLET NG SCH (08:27)
[2021-10-14] MEDS: ASPIRIN 81 MG TAB.CHEW NG SCH (08:27)
[2021-10-14] MEDS: LIPASE/PROTEASE/AMYLASE 1 EACH CAPSULE.DR NG SCH ×3 (08:27→17:07)
[2021-10-14] MEDS: MONTELUKAST SODIUM (10MG) 10 MG TABLET NG SCH (08:27)
[2021-10-14] MEDS: ENOXAPARIN SODIUM 40 MG/0.4 ML DISP.SYRIN SQ SCH ×2 (08:28→21:38)
[2021-10-14] MEDS: ANASTROZOLE 1 MG TABLET NG SCH (08:29)
[2021-10-14] MEDS: FLUTICASONE/VILANTEROL 1 EACH BLST.W.DEV IH SCH (08:29)
[2021-10-14 08:44] LABS: ABG BASE EXCESS 1.1 mmol/L; ABG OXYGEN SATURATION 87.6 % (92.0-98.5); ABG PCO2 47.5 mmHg (35.0-45.0); ABG PH 7.369 (7.350-7.450); ABG PO2 56.8 mmHg (75.0-100.0); AaDO2 536.2 mmHg; COHb 0.3 % (0.5-1.5); MetHb 0.1 % (0.0-1.5); O2Hb 87.2 % (94.0-97.0); SITE, ABG Right Radial
[2021-10-14] MEDS ORDERED: GLUCERNA 1.2 1,000 ML BOTTLE NG PRN (09:30)
[2021-10-14] MEDS: GLUCERNA 1.2 1,000 ML BOTTLE NG PRN (11:24)
[2021-10-14] MEDS: CEFEPIME 1 GM in IV D5W 50 ML IV SCH (12:34)
[2021-10-14 13:29] LABS: BILIRUBIN,URINE NEGATIVE (NEGATIVE); COLOR,URINE YELLOW (YELLOW); LEUKOCYTE ESTERASE ,URINE SMALL (NEGATIVE); NITRITE, URINE NEGATIVE (NEGATIVE); PH,URINE 5.5 (5.0-8.0); PROTEIN,URINE NEGATIVE (NEGATIVE); UGLUCOSE 250 MG/DL mg/dL (NEGATIVE); UROBILINOGEN,URINE 0.2 EU/dL (0.2)
[2021-10-14 13:32] LABS: C-REACTIVE PROTEIN 6.7 mg/dL (0.0-0.9)
[2021-10-14] MEDS: VANCOMYCIN HCL 0.75 GM in IV D5W 250 ML IV SCH (13:40)
[2021-10-14 13:46] LABS: RBC,URINE 0-3 /HPF (0-2)
[2021-10-14 13:47] LABS: BACTERIA,URINE Few /HPF (None Seen); URIC ACID CRYSTALS,URINE Moderate /HPF (None Seen)
[2021-10-14 13:48] LABS: SQUAMOUS EPITHELIAL CELL,UR Rare /HPF (None Seen)
--- NOTE | 2021-10-14 14:00 | NUR ---
RN NOTES PT TOLERATING TF AT 10CC /HR VIA NGT , PT TOLERATING WELL , CONTINUE TO MONITOR .
[2021-10-14] MEDS: REMDESIVIR (CHARGED) 100 MG in IV NS 0.9% 100 ML IV SCH (15:17)
[2021-10-14] MEDS ORDERED: HYDROCORTISONE SOD SUCCINATE 100 MG/2 ML VIAL IV SCH (15:30)
--- NOTE | 2021-10-14 18:00 | NUR ---
RN NOTES PT REMAINS INTUBATED AND SEDATED ON DIPRIVAN AT 80MCG/KG/MIN , ON TELE SR , FOLY DRAINING TO GRAVITY TF AT 10CC/HR RUNNING VIA NGT , IV SITES CLEAN, DRY AND INTACT, SR UP x3, CALL LIGHT WITHIN EASY REACH, WILL ENDORSE TO ABRASIVE BAND WINDER NURSE FOR CONTINUITY OF CARE .
--- NOTE | 2021-10-14 19:30 | NUR ---
RN NOTE RECEIVED PATIENT IN BED, SEDATED. ON MECHANICAL VENT, ET TUBE 06/14 AC 28 TV 480 FIO2 80 PEEP 12, RESPIRATIONS ARE EVEN AND UNLABORED. NO DISTRESS. TELE MONITOR READS SINUS RHYTHM. IV ACCESS IN EVELYN PICC LINE AND DAYSI MIDLINE. CVP MONITOR PRESENT, DAMPEND. GTUBE PRESENT NO RESIDUAL, FLUSHED WITH NO RESISTANCE, RUNNING GLUCERNA @10ML/HR. CID CATHETER DRAINING TO GRAVITY, URINE IS YELLOW. BED IS LOW AND LOCKED, HOB ELEVATED IN SEMI FOWLERS, SIDE RIALS UP X2, CALL LIGHT WITHIN REACH.
[2021-10-15] VITALS (54 sets, daily range): BP systolic 72–132; BP diastolic 33–62
[2021-10-15] MEDS: PROPOFOL 100 ML IV PRN ×7 (00:03→11:59)
[2021-10-15] MEDS: CEFEPIME 1 GM in IV D5W 50 ML IV SCH (00:08)
[2021-10-15] MEDS: BLOOD SUGAR DIAGNOSTIC 1 EACH STRIP IN SCH ×5 (00:08→23:16)
[2021-10-15] MEDS: INSULIN REGULAR, HUMAN 100 UNIT/ML 3 ML VIAL SQ PRN ×4 (00:23→23:16)
[2021-10-15] MEDS: IV NS 0.9% 250 ML IV PRN ×2 (02:07→23:05)
[2021-10-15 04:34] LABS: BASOPHILS % (AUTO) 0.1 % (0.0-2.0); CALCIUM, SERUM 7.5 mg/dL (8.5-10.1); CARBON DIOXIDE 25 mmol/L (21-32); CHLORIDE 101 mmol/L (98-107); CREATININE 1.5 mg/dL (0.6-1.3); EOSINOPHILS % (AUTO) 0.4 % (0.0-6.0); GLUCOSE 249 mg/dL (74-106); HEMATOCRIT 29 % (33-45); HEMOGLOBIN 9.6 g/dL (11.5-14.8); LYMPHOCYTES # (AUTO) 0.4 K/uL (0.8-4.8); LYMPHOCYTES % (AUTO) 1.9 % (20.0-44.0); MAGNESIUM 2.3 mg/dL (1.8-2.4); MEAN CORPUSCULAR HGB CONC 34 g/dl (31.0-36.0); MEAN CORPUSCULAR VOLUME 85 fL (82-100); MONOCYTES # (AUTO) 0.4 K/uL (0.1-1.30); MONOCYTES % (AUTO) 1.8 % (2.0-12.0); NEUTROPHILS # (AUTO) 21.6 K/uL (1.8-8.9); NEUTROPHILS % (AUTO) 95.8 % (43.0-81.0); PHOSPHORUS 3.4 mg/dL (2.5-4.9); PLATELET COUNT (AUTO) 251 K/uL (150-450); POTASSIUM 3.5 mmol/L (3.5-5.1); RED BLOOD CELL COUNT(AUTO) 3.34 MIL/uL (4.0-5.2); SODIUM SERUM 138 mmol/L (136-145); UREA NITROGEN, BLOOD 62 mg/dL (7-18); WHITE BLOOD COUNT (AUTO) 22.6 K/uL (4.3-11.0)
[2021-10-15 04:55] LABS: CREATINE KINASE, TOTAL 20 U/L (26-192); FERRITIN 978 ng/mL (8-388)
--- NOTE | 2021-10-15 05:14 | NUR ---
INCREASED FIO2 FROM 90% TO 100% DUE TO DESATURATION OF SPO2 85% - 87%. LISHA BAZAN AWARE. WILL CONTINUE TO MONITOR T/O SHIFT.
--- NOTE | 2021-10-15 05:45 | NUR ---
RN NOTE PATIENT FIO2 INCREASED TO 100% D/T DESATURATION 85-87%. PATIENT WAS CLEANED AND DESATURATED DOWN TO 76%. FIO2 MAINTAINED 100%.
--- NOTE | 2021-10-15 06:55 | NUR ---
RN NOTE RESTING IN BED, SEDATED. ON MECHANICAL VENT, ET TUBE 06/14 AC 28 TV 480 FIO2 NOW 100 PEEP 12, PAINT EXPERIENCING DESATURATION DURING CLEANING, DOWN TO 76%. SINUS RHYTHM. EVELYN PICC LINE AND DAYSI MIDLINE RUNNING PROPOFOL @80MCG. CVP MONITOR RANGE 3-6 GTUBE RUNNING GLUCERNA @10ML/HR. CID CATHETER URINE IS YELLOW, OUTPUT 475. BILATERAL SOFT WRIST RESTRAINTS MAINTAINED, NO REDNESS, GOOD CAP REFILL. BED REMAINS LOW AND LOCKED, HOB ELEVATED IN SEMI FOWLERS, SIDE RIALS UP X2, CALL LIGHT WITHIN REACH.
[2021-10-15] MEDS: FLUTICASONE/VILANTEROL 1 EACH BLST.W.DEV IH SCH (07:59)
[2021-10-15] MEDS: LIPASE/PROTEASE/AMYLASE 1 EACH CAPSULE.DR NG SCH ×3 (08:07→17:03)
[2021-10-15] MEDS: ATORVASTATIN 40 MG TABLET NG SCH (08:07)
[2021-10-15] MEDS: DEXAMETHASONE SOD PHOSPHATE 10 MG/ML VIAL IV SCH (08:07)
[2021-10-15] MEDS: MONTELUKAST SODIUM (10MG) 10 MG TABLET NG SCH (08:07)
[2021-10-15] MEDS: HYDROCORTISONE SOD SUCCINATE 100 MG/2 ML VIAL IV SCH ×2 (08:07→17:03)
[2021-10-15] MEDS: ASPIRIN 81 MG TAB.CHEW NG SCH (08:08)
[2021-10-15] MEDS: PANTOPRAZOLE 40 MG/PACK PACK NG SCH (08:08)
[2021-10-15] MEDS: ENOXAPARIN SODIUM 40 MG/0.4 ML DISP.SYRIN SQ SCH ×2 (08:09→20:39)
[2021-10-15] MEDS: ANASTROZOLE 1 MG TABLET NG SCH (08:15)
--- NOTE | 2021-10-15 08:30 | NUR ---
Patient seen by Dr Cisneros. made aware that patient's RR is 34-35 and vent setting is 28. PER MD to increase propofol to 100 mcg and if patient's RR is not close to 28 setting to add fentanyl drip. Orders noted and propofol titration started.
[2021-10-15 08:39] LABS: ABG PCO2 44.9 mmHg (35.0-45.0); ABG PO2 56.1 mmHg (75.0-100.0); COHb 0.1 % (0.5-1.5); MetHb 0.3 % (0.0-1.5); O2Hb 88.2 % (94.0-97.0); SITE, ABG Right Radial
--- NOTE | 2021-10-15 08:45 | NUR ---
Patient noted with 02 sat of 74% MD NAVA AWARE.
--- NOTE | 2021-10-15 08:59 | NUR ---
Peep increased to 15 by RT
[2021-10-15] MEDS: FENTANYL CITRAT IV 2,500 MCG in IV NS 0.9% 200 ML IV PRN (09:28)
[2021-10-15] MEDS: PHENYLEPHRINE 100 MG in IV NS 0.9% 240 ML IV PRN ×2 (09:29→19:17)
--- NOTE | 2021-10-15 11:00 | NUR ---
Patient's tube ( ng clogged) and unable to declog. MD Manley made aware and explained to regarding patient's bp and 02 saturation status. Per MD to hold inserting new tube until patient is stable.
[2021-10-15] MEDS: MIDAZOLAM HCL 100 MG in IV NS 0.9% 80 ML IV PRN (11:35)
[2021-10-15] MEDS: MEROPENEM 500 MG in IV NS 0.9% 50 ML IV SCH ×2 (11:59→22:35)
--- NOTE | 2021-10-15 13:00 | NUR ---
awaiting vanco trough results
--- NOTE | 2021-10-15 14:00 | NUR ---
DR DOS SANTOS MADE AWARE REGARDING PATIENT'S BROTHER WANTING TO SPEAK TO MD. PER MD SHE WILL CONTACT THE BROTHER.
--- NOTE | 2021-10-15 14:01 | NUR ---
Patient's blood sugar 171 mg/dl, no feeding at this time. Insulin held md aware.
--- NOTE | 2021-10-15 14:16 | NUR ---
RT at bedside for abg per MD orders. Patients vitals stabalizing. RR 28, Pulse 87. bp 100/50, 02 sat 91% on vent settings
[2021-10-15 14:26] LABS: ABG BASE EXCESS -4.9 mmol/L; ABG OXYGEN SATURATION 83.1 % (92.0-98.5); ABG PH 7.234 (7.350-7.450); ABG PO2 52.6 mmHg (75.0-100.0); AaDO2 605.4 mmHg; COHb 0.3 % (0.5-1.5); MetHb 0.1 % (0.0-1.5); O2Hb 82.8 % (94.0-97.0); SITE, ABG Right Radial
[2021-10-15] MEDS ORDERED: VANCOMYCIN 1 GM in IV D5W 250ml IV SCH (16:00)
--- NOTE | 2021-10-15 16:00 | NUR ---
DR DOS SANTOS AND DR NAVA SPOKE TO THE BROTHER LIZZIE AND EXPLAINED PATIENT'S HEALTH STATUS.
[2021-10-15] MEDS: NOREPINEPHRINE 32 MG in IV NS 0.9% 218 ML IV PRN (17:03)
[2021-10-15] MEDS: GLUCERNA 1.2 1,000 ML BOTTLE NG PRN (17:56)
--- NOTE | 2021-10-15 19:20 | NUR ---
RECEIVED PT ON BED ORALLY INTUBATED ON VENT SETTING PER MD FIO2 100% PEEP 15 SPO2 80-88% MD IS AWARE PER AM SHIFT NURSE, TELE MONITOR READS SINUS TACHY 100'S, SEDATED WITH FENTANYL 100 MCG/HR VERSED @ 2MCG/HR VIA EVELYN PICC TO TITRATE PER PROTOCOL, WITH ONGOING ALSO MARISOL @ 3 MCG/KG/MIN AND LEVOPHED @ 0.1 MCG/KG MIN TO TITRATE PER PROTOCOL HAVE OGTUBE ON PLACE PLACEMENT CHECKED AND VERIFIED RESIDUAL 10 ML WITH ONGOING GLUCERNA @ 10ML/HR CID CATHETER DRAINING YELLOW GREEN URINE VIA GRAVITY, BED ON LOWEST POSITION AND LOCKED SIDE RAILS UP X2 WILL CONT TO MONITOR
--- NOTE | 2021-10-15 19:26 | NUR ---
MANAGER PLANT CLOSING NOTES Patient is sedated and on mechanical vent saturation of 88%. HOB kept elevated. Patient orograstric tube reinserted and placement checked with xray and auscaltation. Glucerna started at 10 cc/hour. HOB kept elevated. Noted with urine output of 100 cc during shift. EVELYN picc line runningg suad drip, levo drip, fentany and versed drip. Endorsed to next shift for PETE.
--- NOTE | 2021-10-15 19:52 | NUR ---
RT pt received on mechanical vent with current settings. orally intubated. 7.0, 22@lip. vent plugged in to red outlet. ambu bag at bedside. minimal secretions suctioned via ett. no sob, no resp distress. will continue to monitor.
[2021-10-16] VITALS (88 sets, daily range): BP systolic 63–150; BP diastolic 24–88
[2021-10-16] MEDS: PHENYLEPHRINE 100 MG in IV NS 0.9% 240 ML IV PRN ×5 (00:31→21:17)
[2021-10-16 05:02] LABS: BASOPHILS # (AUTO) 0.1 K/uL (0.0-0.2); BASOPHILS % (AUTO) 0.2 % (0.0-2.0); HEMATOCRIT 30 % (33-45); HEMOGLOBIN 9.7 g/dL (11.5-14.8); LYMPHOCYTES # (AUTO) 0.8 K/uL (0.8-4.8); LYMPHOCYTES % (AUTO) 2.6 % (20.0-44.0); MEAN CORPUSCULAR HGB CONC 32 g/dl (31.0-36.0); MEAN CORPUSCULAR VOLUME 88 fL (82-100); MONOCYTES # (AUTO) 0.7 K/uL (0.1-1.30); MONOCYTES % (AUTO) 2.1 % (2.0-12.0); NEUTROPHILS # (AUTO) 30.6 K/uL (1.8-8.9); NEUTROPHILS % (AUTO) 92.1 % (43.0-81.0); PLATELET COUNT (AUTO) 328 K/uL (150-450); RED BLOOD CELL COUNT(AUTO) 3.46 MIL/uL (4.0-5.2)
[2021-10-16 05:05] LABS: CALCIUM, SERUM 7.3 mg/dL (8.5-10.1); CARBON DIOXIDE 23 mmol/L (21-32); CHLORIDE 101 mmol/L (98-107); CREATININE 2.6 mg/dL (0.6-1.3); GLUCOSE 261 mg/dL (74-106); MAGNESIUM 2.2 mg/dL (1.8-2.4); PHOSPHORUS 5.8 mg/dL (2.5-4.9); SODIUM SERUM 137 mmol/L (136-145); UREA NITROGEN, BLOOD 71 mg/dL (7-18)
[2021-10-16 05:06] LABS: WHITE BLOOD COUNT (AUTO) 33.2 K/uL (4.3-11.0)
[2021-10-16] MEDS: BLOOD SUGAR DIAGNOSTIC 1 EACH STRIP IN SCH ×4 (06:32→23:44)
[2021-10-16] MEDS: INSULIN REGULAR, HUMAN 100 UNIT/ML 3 ML VIAL SQ PRN ×3 (06:34→23:45)
--- NOTE | 2021-10-16 07:26 | NUR ---
PT ON BED SEDATED WITH FENTANYL 100 MCG/HR VERSED @ 2 MCG/HR ORALLY INTUBATED AND ON FULL VENT SETTING FIO2 100% SPO2 77%, SINUS TACHY 110'S ON MONITOR, HAVE MARISOL @ 3MCG/KG/MIN AND LEVOPHED @ 0.4 MCG/KG/MIN INFUSING VIA EVELYN PICC, WITH 120 ML URINE, BED ON LOWEST POSITION AND LOCKED SIDE RAILS UP X2 CALL LIGHT WITHIN REACH ENDORSED TO AM SHIFT NURSE
--- NOTE | 2021-10-16 07:30 | NUR ---
WELD FITTER OPENING NOTES Patient received sedated and on mechanical vent saturation of 77%, TV 480 , PEEP OF 15 AC 28. HOB kept elevated. Glucerna at 10 cc/hour. HOB kept elevated. EVELYN picc line running suad drip at 3mcg, levo drip 0.4, fentany 100 MCG and versed drip at 2mg. Patient's HOB kept elevated. Will continue to monitor. Call light with in reach.
[2021-10-16] MEDS: FENTANYL CITRAT IV 2,500 MCG in IV NS 0.9% 200 ML IV PRN (08:31)
[2021-10-16] MEDS: FLUTICASONE/VILANTEROL 1 EACH BLST.W.DEV IH SCH (08:39)
[2021-10-16 08:43] LABS: ABG BASE EXCESS -9.6 mmol/L; ABG OXYGEN SATURATION 78.7 % (92.0-98.5); ABG PCO2 70.7 mmHg (35.0-45.0); ABG PH 7.087 (7.350-7.450); ABG PO2 48.9 mmHg (75.0-100.0); AaDO2 593.4 mmHg; COHb 0.3 % (0.5-1.5); MetHb 0.3 % (0.0-1.5); O2Hb 78.2 % (94.0-97.0); PEEP,BG 15 cm H2O; SITE, ABG Right Brachial; VT, ABG 450 mL
[2021-10-16] MEDS: HYDROCORTISONE SOD SUCCINATE 100 MG/2 ML VIAL IV SCH ×4 (09:00→20:48)
--- NOTE | 2021-10-16 09:11 | NUR ---
vent changes below per dr. Cisneros: AC 32 VT 480 PEEP +18 Addendum: 10/16/21 at 0912 by HERMES FLOWER RT Amended: Links added.
[2021-10-16] MEDS: ANASTROZOLE 1 MG TABLET NG SCH (09:31)
[2021-10-16] MEDS: PANTOPRAZOLE 40 MG/PACK PACK NG SCH (09:31)
[2021-10-16] MEDS: ASPIRIN 81 MG TAB.CHEW NG SCH (09:31)
[2021-10-16] MEDS: ATORVASTATIN 40 MG TABLET NG SCH (09:31)
[2021-10-16] MEDS: MONTELUKAST SODIUM (10MG) 10 MG TABLET NG SCH (09:31)
[2021-10-16] MEDS: LIPASE/PROTEASE/AMYLASE 1 EACH CAPSULE.DR NG SCH ×3 (09:31→18:06)
[2021-10-16] MEDS: DEXAMETHASONE SOD PHOSPHATE 10 MG/ML VIAL IV SCH (09:31)
--- NOTE | 2021-10-16 09:45 | NUR ---
Peep changed to 18 and AV changed to 32 by RT based on MD Cisneros's orders
[2021-10-16] MEDS: NOREPINEPHRINE 32 MG in IV NS 0.9% 218 ML IV PRN ×3 (09:51→21:47)
[2021-10-16 10:08] LABS: BAND % (MANUAL) 20 % (0.0-5.0); LYMPHOCYTES % (MANUAL) 2 % (16-48); MONOCYTES % (MANUAL) 6 % (0-11.0); NEUTROPHILS % (MANUAL) 72 (42-76)
[2021-10-16] MEDS: Sodium Bicarbonate 100 MEQ in IV D5W 1,000 ML IV PRN (10:39)
--- NOTE | 2021-10-16 10:45 | NUR ---
Sodium bicarb started at 75cc/hour.
[2021-10-16] MEDS: MEROPENEM 500 MG in IV NS 0.9% 50 ML IV SCH ×2 (11:00→22:39)
[2021-10-16] MEDS: MIDAZOLAM HCL 100 MG in IV NS 0.9% 80 ML IV PRN (11:39)
[2021-10-16 13:13] LABS: ABG BASE EXCESS -10.3 mmol/L; ABG OXYGEN SATURATION 79.2 % (92.0-98.5); ABG PCO2 67.2 mmHg (35.0-45.0); ABG PH 7.091 (7.350-7.450); AaDO2 597.8 mmHg; COHb 0.3 % (0.5-1.5); MetHb 0.2 % (0.0-1.5); O2Hb 78.8 % (94.0-97.0); PEEP,BG 18 cm H2O; SITE, ABG Right Brachial; VT, ABG 480 mL
--- NOTE | 2021-10-16 13:23 | NUR ---
increase peep to [address] Cisneros Addendum: 10/16/21 at 1324 by HERMES FLOWER RT Amended: Links added.
--- NOTE | 2021-10-16 13:26 | NUR ---
Peep changed to 20 by RT as ordered by MD Cisneros and ABG at 1600.
[2021-10-16] MEDS ORDERED: VASOPRESSIN INJ 40 UNIT in IV NS 0.9% 38 ML IV PRN (14:30)
[2021-10-16] MEDS: VASOPRESSIN INJ 40 UNIT in IV NS 0.9% 38 ML IV PRN (15:05)
[2021-10-16 16:17] LABS: ABG BASE EXCESS -13.5 mmol/L; ABG OXYGEN SATURATION 87.7 % (92.0-98.5); ABG PCO2 62.9 mmHg (35.0-45.0); ABG PH 7.051 (7.350-7.450); ABG PO2 62.8 mmHg (75.0-100.0); AaDO2 587.3 mmHg; COHb 0.3 % (0.5-1.5); MetHb 0.4 % (0.0-1.5); O2Hb 87.1 % (94.0-97.0); PEEP,BG 20 cm H2O; SITE, ABG Right Brachial; VT, ABG 480 mL
[2021-10-16] MEDS ORDERED: SODIUM BICARBONATE SYR 50 MEQ/50 ML DISP.SYRIN IV ONE (16:30)
[2021-10-16] MEDS: ACETAMINOPHEN 650 MG/20.3 ML UDC NG PRN ×2 (18:06→23:40)
[2021-10-16] MEDS: VORICONAZOLE 200 MG TABLET GT SCH (18:06)
--- NOTE | 2021-10-16 19:00 | NUR ---
RELAY TECHNICIAN CLOSING NOTES Patient received sedated and on mechanical vent saturation of 91%%, TV 480 , PEEP OF 20 AC 32. HOB kept elevated. Glucerna at 10 cc/hour. HOB kept elevated. EVELYN picc line running suad drip at 3mcg, levo drip 0.8MCG, fentany 100 MCG and versed drip at 2mg, Vasopressin 0.04 units. Patient right upper arm midline running sodium bicarb running at 75 cc/hour. Patient noted with temp of 101.2 and tylenol provided and temp axillary rechecked and noted with 100.9. Called tax consultant MD for patient's aspergillus ag IGE lab due to lab needing to verify the type of aspirgillus. Per md to check aspergillus species. Left message with Lab. Patient's HOB kept elevated. Will continue to monitor. Call light with in reach.
--- NOTE | 2021-10-16 19:15 | NUR ---
RECEIVED PT ON BED ORALLY INTUBATED ON VENT SETTING PER MD FIO2 100% PEEP 20 SPO2 88-91% MD IS AWARE PER AM SHIFT NURSE, TELE MONITOR READS SINUS TACHY 140'S, SEDATED WITH FENTANYL 100 MCG/HR VERSED @ 2MCG/HR VIA EVELYN PICC TO TITRATE PER PROTOCOL, WITH ONGOING ALSO MARISOL @ 3 MCG/KG/MIN AND LEVOPHED @ 0.8 MCG/KG MIN AND VASOPRESSIN @ 0.04 MCG/HR TO TITRATE PER PROTOCOL AND NaHCO3 @ 75ML/HR HAVE OGTUBE ON PLACE PLACEMENT CHECKED AND VERIFIED RESIDUAL 10 ML WITH ONGOING GLUCERNA @ 10ML/HR CID CATHETER DRAINING YELLOW GREEN URINE VIA GRAVITY, BED ON LOWEST POSITION AND LOCKED SIDE RAILS UP X2 WILL CONT TO MONITOR
[2021-10-17] VITALS (92 sets, daily range): BP systolic 61–193; BP diastolic 19–97
[2021-10-17] MEDS: Sodium Bicarbonate 100 MEQ in IV D5W 1,000 ML IV PRN ×2 (00:16→15:07)
[2021-10-17] MEDS: VASOPRESSIN INJ 40 UNIT in IV NS 0.9% 38 ML IV PRN ×2 (02:17→19:13)
[2021-10-17] MEDS: PHENYLEPHRINE 100 MG in IV NS 0.9% 240 ML IV PRN ×4 (03:03→21:19)
[2021-10-17] MEDS ORDERED: VANCOMYCIN 1 GM in IV D5W 250ml IV SCH (04:00)
[2021-10-17 04:13] LABS: BASOPHILS # (AUTO) 0.1 K/uL (0.0-0.2); HEMOGLOBIN 9.1 g/dL (11.5-14.8); LYMPHOCYTES # (AUTO) 0.8 K/uL (0.8-4.8)
[2021-10-17 04:22] LABS: CALCIUM, SERUM 6.8 mg/dL (8.5-10.1); CARBON DIOXIDE 21 mmol/L (21-32); CHLORIDE 101 mmol/L (98-107); CREATININE 3.8 mg/dL (0.6-1.3); GLUCOSE 326 mg/dL (74-106); MAGNESIUM 2.3 mg/dL (1.8-2.4); SODIUM SERUM 138 mmol/L (136-145)
[2021-10-17 04:29] LABS: BASOPHILS % (AUTO) 0.2 % (0.0-2.0); HEMATOCRIT 29 % (33-45); LYMPHOCYTES % (AUTO) 2.2 % (20.0-44.0); MEAN CORPUSCULAR HGB CONC 32 g/dl (31.0-36.0); MEAN CORPUSCULAR VOLUME 87 fL (82-100); MONOCYTES # (AUTO) 0.8 K/uL (0.1-1.30); MONOCYTES % (AUTO) 2.3 % (2.0-12.0); NEUTROPHILS # (AUTO) 34.3 K/uL (1.8-8.9); NEUTROPHILS % (AUTO) 93.3 % (43.0-81.0); PLATELET COUNT (AUTO) 204 K/uL (150-450); RED BLOOD CELL COUNT(AUTO) 3.28 MIL/uL (4.0-5.2)
[2021-10-17 04:31] LABS: WHITE BLOOD COUNT (AUTO) 36.8 K/uL (4.3-11.0)
[2021-10-17] MEDS: GLUCERNA 1.2 1,000 ML BOTTLE NG PRN (05:15)
[2021-10-17] MEDS: HYDROCORTISONE SOD SUCCINATE 100 MG/2 ML VIAL IV SCH ×3 (05:16→20:35)
[2021-10-17] MEDS: ACETAMINOPHEN 650 MG/20.3 ML UDC NG PRN ×2 (05:26→09:24)
[2021-10-17] MEDS: BLOOD SUGAR DIAGNOSTIC 1 EACH STRIP IN SCH ×3 (05:48→17:55)
[2021-10-17] MEDS: INSULIN REGULAR, HUMAN 100 UNIT/ML 3 ML VIAL SQ PRN ×3 (05:49→17:57)
[2021-10-17] MEDS: IV NS 0.9% 250 ML IV PRN (06:02)
[2021-10-17] MEDS: NOREPINEPHRINE 32 MG in IV NS 0.9% 218 ML IV PRN ×2 (06:33→18:08)
[2021-10-17 06:35] LABS: BAND % (MANUAL) 2 % (0.0-5.0); LYMPHOCYTES % (MANUAL) 3 % (16-48); MONOCYTES % (MANUAL) 3 % (0-11.0); NEUTROPHILS % (MANUAL) 92 (42-76)
--- NOTE | 2021-10-17 07:19 | NUR ---
PT ON BED SEDATED WITH FENTANYL 100 MCG/HR VERSED @ 2 MCG/HR ORALLY INTUBATED AND ON FULL VENT SETTING PEEP 20 FIO2 100% SPO2 92%, SINUS TACHY 140'S ON MONITOR, HAVE MARISOL @ 3MCG/KG/MIN AND LEVOPHED @ 0.4 MCG/KG/MIN AND VASOPRESSIN @ 0.04 UNIT/MIN, AND NaHCO3 @ 75ML/HR INFUSING VIA EVELYN PICC, WITH 50 ML URINE, BED ON LOWEST POSITION AND LOCKED SIDE RAILS UP X2 CALL LIGHT WITHIN REACH ENDORSED TO AM SHIFT NURSE
--- NOTE | 2021-10-17 07:30 | NUR ---
OPENING NOTE: REPORT RECEIVED FROM LONNIE HUSAIN. PT SEDATED ON FENTANYL AND VERSED PER MD ORDERS. PT ON 3 PRESSORS, MAXED ON MARISOL-SYNEPHRINE 3MCG/KG/MIN, VASOPRESSIN 0.04 UNITS/HR. PT IS ON LEVOPHED AT 0.4,CG/KG/MIN TITRATING PER MD ORDERS. PER REPORT LOW URINE OUTPUT AT 50ML TOTAL FOR THE SHIFT. CURRENT VENT SETTINGS ARE AC32, TV480, 100% PEEP20. PT HAS BEEN ON PEEP 20 SINCE 10/16 AT 1322. PT WILL BE MINIMALLY REPOSITIONED THIS SHIFT D/T PT BEING UNSTABLE AND PATIENT IS A FULL CODE. GLUCERNA TF INFUSING PER MD ORDERS AT 100ML/HR. PT CHECKED ON HOURLY AND PRN BY NURSING STAFF.
[2021-10-17] MEDS: DEXAMETHASONE SOD PHOSPHATE 10 MG/ML VIAL IV SCH (08:37)
[2021-10-17] MEDS: VORICONAZOLE 200 MG TABLET GT SCH ×2 (08:38→20:04)
[2021-10-17] MEDS: PANTOPRAZOLE 40 MG/PACK PACK NG SCH (08:38)
[2021-10-17] MEDS: ATORVASTATIN 40 MG TABLET NG SCH (08:38)
[2021-10-17] MEDS: APIXABAN 2.5 MG TABLET PO SCH ×3 (08:39→17:33)
[2021-10-17] MEDS: LIPASE/PROTEASE/AMYLASE 1 EACH CAPSULE.DR NG SCH ×3 (08:39→17:18)
[2021-10-17] MEDS: MONTELUKAST SODIUM (10MG) 10 MG TABLET NG SCH (08:40)
[2021-10-17] MEDS: ANASTROZOLE 1 MG TABLET NG SCH (08:40)
[2021-10-17] MEDS: ASPIRIN 81 MG TAB.CHEW NG SCH (08:40)
--- NOTE | 2021-10-17 08:42 | NUR ---
RAIN SCHEDULED FOR 0800 AND 0900. 0900 DOSE NOT GIVEN D/T GIVEN AT 0800.
[2021-10-17 09:21] LABS: ABG BASE EXCESS -8.3 mmol/L; ABG OXYGEN SATURATION 92.1 % (92.0-98.5); ABG PCO2 46.8 mmHg (35.0-45.0); ABG PH 7.225 (7.350-7.450); ABG PO2 71.5 mmHg (75.0-100.0); AaDO2 594.7 mmHg; COHb 0.3 % (0.5-1.5); MetHb 0.2 % (0.0-1.5); O2Hb 91.6 % (94.0-97.0); PEEP,BG 20 cm H2O; SITE, ABG Right Radial; VT, ABG 480 mL
[2021-10-17] MEDS: FENTANYL CITRAT IV 2,500 MCG in IV NS 0.9% 200 ML IV PRN (09:47)
[2021-10-17] MEDS: CEFEPIME 1 GM in IV D5W 50 ML IV SCH ×2 (09:52→20:35)
[2021-10-17] MEDS: MEROPENEM 500 MG in IV NS 0.9% 50 ML IV SCH ×2 (11:24→23:10)
--- NOTE | 2021-10-17 12:01 | NUR ---
AT 1130 UNABLE TO OBTAIN BP AT 0.28 MCG/KG/MIN OF LEVOPHED, MAX'D ON MARISOL-SYNEPHRINE AND VASOPRESSIN. PT HAD PULSES. LEVOPHED INCREASED TO 1MCG/KG/MIN TO OBTAIN BP. TEMP WAS 102.7 AX, ICE PACKS APPLIED, TOO SOON FOR MORE TYLENOL. TUBE FEEDING REMAINS OFF D/T PTS UNSTABLE CONDITION. CPR PATCHES APPLIED TO PATIENT IN CASE PT CODES PREPARATION. NO URINE OUTPUT AT THIS TIME. DR. NAVA AND DR DOS SANTOS AWARE. WILL CONTINUE TO MONITOR.
[2021-10-17] MEDS: MIDAZOLAM HCL 100 MG in IV NS 0.9% 80 ML IV PRN (18:08)
--- NOTE | 2021-10-17 18:31 | NUR ---
END OF SHIFT NOTE: MARISOL-SYNEPHRINE AND VASOPRESSIN CONTINUE TO BE MAX'D PER MD ORDERS, LEVOPHED HAS BEEN TITRATED SEVERAL TIMES THIS SHIFT TO KEEP SBP >90. TWO TIMES THIS SHIFT BP WAS UNABLE TO BE ACHIEVED, LEVOPHED HAD TO BE INCREASED TO GET A BP. LEVOPHED IS CURRENTLY INFUSING AT 0.3 MCG/KG/MIN. PT CONTINUES TO BE SEDATED ON FENTANYL AND VERSED PEER MD ORDERS. TMAX THIS SHIFT WAS 102.7 AX, TYLENOL AND ICE APPLIED USED. PT CHECKED ON FREQUENTLY BY NURSING STAFF.
[2021-10-17] MEDS: ERGOCALCIFEROL (VITAMIN D 2) 50,000 UNIT CAPSULE PO SCH (20:00)
--- NOTE | 2021-10-17 20:00 | NUR ---
ICU/RN: RECEIVED PT IN BED ORALLY INTUBATED SIZE 7.0 ETT 23CM @ THE LIP. ON VENT SETTINGS AC 32 TV 480 FIO2 100% PEEP 20. TELE MONITOR READS SINUS TACH, SEDATED WITH FENTANYL 100 MCG/HR, VERSED @ 2MCG/HR VIA EVELYN PICC. MARISOL @ 3MCG/KG/MIN AND LEVOPHED @ 0.3MCG/KG MIN AND VASOPRESSIN @ 0.04MCG/HR TO TITRATE PER PROTOCOL AND NaHCO3 @ 75ML/HR. OGTUBE PLACEMENT VERIFIED PT NOT TOLERATING FEEDINGS @ THIS TIME. CID CATHETER DRAINING KEYA URINE VIA GRAVITY, BED FLAT TO MAINTAIN BP. LOWEST LOCKED POSITION SIDE RAILS UP x2 WILL CONT TO MONITOR.
[2021-10-18] VITALS (96 sets, daily range): BP systolic 74–174; BP diastolic 21–81
[2021-10-18] MEDS: BLOOD SUGAR DIAGNOSTIC 1 EACH STRIP IN SCH ×5 (00:05→23:07)
[2021-10-18] MEDS: INSULIN REGULAR, HUMAN 100 UNIT/ML 3 ML VIAL SQ PRN ×5 (00:19→23:09)
[2021-10-18] MEDS: PHENYLEPHRINE 100 MG in IV NS 0.9% 240 ML IV PRN ×4 (03:20→21:30)
[2021-10-18 04:27] LABS: BASOPHILS % (AUTO) 0.1 % (0.0-2.0); EOSINOPHILS % (AUTO) 0.6 % (0.0-6.0); HEMATOCRIT 26 % (33-45); HEMOGLOBIN 8.4 g/dL (11.5-14.8); LYMPHOCYTES # (AUTO) 0.8 K/uL (0.8-4.8); LYMPHOCYTES % (AUTO) 2.7 % (20.0-44.0); MEAN CORPUSCULAR HGB CONC 32 g/dl (31.0-36.0); MEAN CORPUSCULAR VOLUME 88 fL (82-100); MONOCYTES # (AUTO) 0.6 K/uL (0.1-1.30); MONOCYTES % (AUTO) 1.9 % (2.0-12.0); NEUTROPHILS # (AUTO) 29.7 K/uL (1.8-8.9); NEUTROPHILS % (AUTO) 94.7 % (43.0-81.0); PLATELET COUNT (AUTO) 137 K/uL (150-450); RED BLOOD CELL COUNT(AUTO) 2.97 MIL/uL (4.0-5.2)
[2021-10-18 04:49] LABS: CALCIUM, SERUM 6.3 mg/dL (8.5-10.1); CARBON DIOXIDE 25 mmol/L (21-32); CHLORIDE 96 mmol/L (98-107); CREATININE 4.5 mg/dL (0.6-1.3); MAGNESIUM 2.5 mg/dL (1.8-2.4); PHOSPHORUS 7.9 mg/dL (2.5-4.9); POTASSIUM 5.2 mmol/L (3.5-5.1); SODIUM SERUM 133 mmol/L (136-145)
[2021-10-18 05:08] LABS: WHITE BLOOD COUNT (AUTO) 31.4 K/uL (4.3-11.0)
[2021-10-18 05:09] LABS: GLUCOSE 392 mg/dL (74-106)
[2021-10-18 05:10] LABS: UREA NITROGEN, BLOOD 107 mg/dL (7-18)
[2021-10-18] MEDS: Sodium Bicarbonate 100 MEQ in IV D5W 1,000 ML IV PRN ×3 (05:14→22:30)
[2021-10-18] MEDS: IV NS 0.9% 250 ML IV PRN ×2 (05:14→21:30)
[2021-10-18] MEDS: HYDROCORTISONE SOD SUCCINATE 100 MG/2 ML VIAL IV SCH ×3 (05:14→21:00)
--- NOTE | 2021-10-18 07:30 | NUR ---
OPENING NOTE: REPORT RECEIVED FROM LIZZIE HUSAIN. PER REPORTS NO SIGNIFICANT EVENTS OVERNIGHT. NO ELEVATED TEMPS. LEVOPHED WAS TITRATED OVERNIGHT TO 0.2 MCG/KG/MIN PER MD ORDERS. PATIENT REMAINS FLAT TO MAINTAIN BLOOD PRESSURE. SEVERAL ABNORMAL LABS THIS AM, NOT OUT OF RANGE FROM THE LAST FEW DAYS. PER REPORT URINE OUTPUT OVERNIGHT WAS ONLY 20ML. PT CHECKED ON HOURLY AND PRN BY NURSING STAFF.
[2021-10-18] MEDS: LIPASE/PROTEASE/AMYLASE 1 EACH CAPSULE.DR NG SCH ×3 (08:00→17:01)
[2021-10-18 08:25] LABS: BAND % (MANUAL) 2 % (0.0-5.0); LYMPHOCYTES % (MANUAL) 4 % (16-48); MONOCYTES % (MANUAL) 2 % (0-11.0); NEUTROPHILS % (MANUAL) 92 (42-76)
--- NOTE | 2021-10-18 08:43 | NUR ---
DR DOS SANTOS NOTIFIED OF PATIENTS BLOOD GLUCOSE LEVELS IN THE UPPER 300'S, ALMOST 400. LANTUS 20 UNITS QHS AND SLIDING CHANGE CHANGED FROM MODERATE TO AGGRESSIVE AT THIS TIME.
[2021-10-18 08:45] LABS: ABG BASE EXCESS -4.6 mmol/L; ABG OXYGEN SATURATION 92.3 % (92.0-98.5); ABG PCO2 53.4 mmHg (35.0-45.0); ABG PH 7.246 (7.350-7.450); ABG PO2 73.9 mmHg (75.0-100.0); AaDO2 585.7 mmHg; COHb 0.3 % (0.5-1.5); MetHb 0.3 % (0.0-1.5); O2Hb 91.7 % (94.0-97.0); SITE, ABG Left Radial; VENT MODE, BG AC 32 480 100% +20
[2021-10-18] MEDS: PANTOPRAZOLE 40 MG/PACK PACK NG SCH (09:25)
[2021-10-18] MEDS: ANASTROZOLE 1 MG TABLET NG SCH (09:25)
[2021-10-18] MEDS: MONTELUKAST SODIUM (10MG) 10 MG TABLET NG SCH (09:25)
[2021-10-18] MEDS: ASPIRIN 81 MG TAB.CHEW NG SCH (09:25)
[2021-10-18] MEDS: VORICONAZOLE 200 MG TABLET GT SCH ×2 (09:26→21:00)
[2021-10-18] MEDS: CEFEPIME 1 GM in IV D5W 50 ML IV SCH ×2 (09:26→21:00)
[2021-10-18] MEDS: FENTANYL CITRAT IV 2,500 MCG in IV NS 0.9% 200 ML IV PRN (09:27)
[2021-10-18] MEDS: APIXABAN 2.5 MG TABLET PO SCH ×2 (09:28→17:09)
[2021-10-18] MEDS: MEROPENEM 500 MG in IV NS 0.9% 50 ML IV SCH ×2 (11:41→22:30)
[2021-10-18] MEDS: VASOPRESSIN INJ 40 UNIT in IV NS 0.9% 38 ML IV PRN (12:40)
[2021-10-18] MEDS: MIDAZOLAM HCL 100 MG in IV NS 0.9% 80 ML IV PRN (17:40)
[2021-10-18] MEDS: NOREPINEPHRINE 32 MG in IV NS 0.9% 218 ML IV PRN (18:09)
--- NOTE | 2021-10-18 18:15 | NUR ---
END OF SHIFT NOTE: PT HAD A FAIRLY UNEVENTFUL SHIFT. MARISOL-SYNEPHRINE AND VASOPRESSIN CONTINUE TO BE AT MAX RATE. LEVOPHED TITRATED DOWN TO 0.1 MCG/KG/MIN. INSULIN SLIDING SCALE CHANGED TODAY AND LANTUS STARTS TONIGHT. NO BM THIS SHIFT. NO URINE OUTPUT THIS SHIFT, MD'S AWARE. MINIMAL REPOSITIONING THIS SHIFT D/T PATIENT BEING UNSTABLE. NO ELEVATED TEMP THIS SHIFT. PT CHECKED ON HOURLY AND PRN BY NURSING STAFF.
[2021-10-18] MEDS: INSULIN GLARGINE, 100 UNIT/ML CARTRIDGE SQ SCH (22:54)
[2021-10-19] VITALS (97 sets, daily range): BP systolic 64–130; BP diastolic 12–74
[2021-10-19] MEDS: PHENYLEPHRINE 100 MG in IV NS 0.9% 240 ML IV PRN ×4 (03:15→21:22)
[2021-10-19] MEDS: HYDROCORTISONE SOD SUCCINATE 100 MG/2 ML VIAL IV SCH ×3 (04:20→21:41)
[2021-10-19 05:23] LABS: BASOPHILS # (AUTO) 0.1 K/uL (0.0-0.2); BASOPHILS % (AUTO) 0.2 % (0.0-2.0); EOSINOPHILS % (AUTO) 0.1 % (0.0-6.0); HEMATOCRIT 23 % (33-45); HEMOGLOBIN 7.3 g/dL (11.5-14.8); LYMPHOCYTES # (AUTO) 0.7 K/uL (0.8-4.8); LYMPHOCYTES % (AUTO) 1.8 % (20.0-44.0); MEAN CORPUSCULAR HGB CONC 32 g/dl (31.0-36.0); MEAN CORPUSCULAR VOLUME 86 fL (82-100); MONOCYTES # (AUTO) 0.1 K/uL (0.1-1.30); MONOCYTES % (AUTO) 0.3 % (2.0-12.0); NEUTROPHILS # (AUTO) 38.6 K/uL (1.8-8.9); NEUTROPHILS % (AUTO) 97.6 % (43.0-81.0); PLATELET COUNT (AUTO) 128 K/uL (150-450); RED BLOOD CELL COUNT(AUTO) 2.65 MIL/uL (4.0-5.2)
[2021-10-19] MEDS: VASOPRESSIN INJ 40 UNIT in IV NS 0.9% 38 ML IV PRN (05:30)
[2021-10-19] MEDS: BLOOD SUGAR DIAGNOSTIC 1 EACH STRIP IN SCH ×4 (05:30→23:39)
[2021-10-19 05:41] LABS: ALANINE AMINOTRANSFERASE 149 U/L (12-78); ALKALINE PHOSPHATASE 220 U/L (46-116); ASPARTATE AMINOTRANSFERASE 393 U/L (15-37); BILIRUBIN,DIRECT 0.5 mg/dL (0.0-0.2); BILIRUBIN,TOTAL 0.8 mg/dL (0.2-1.0); CARBON DIOXIDE 24 mmol/L (21-32); CHLORIDE 95 mmol/L (98-107); CREATININE 4.7 mg/dL (0.6-1.3); GLUCOSE 224 mg/dL (74-106); MAGNESIUM 2.4 mg/dL (1.8-2.4); POTASSIUM 5.5 mmol/L (3.5-5.1); SODIUM SERUM 135 mmol/L (136-145); TOTAL PROTEIN, SERUM 5.2 g/dL (6.4-8.2)
[2021-10-19 06:03] LABS: ALBUMIN 1.3 g/dL (3.4-5.0); CALCIUM, SERUM 5.8 mg/dL (8.5-10.1); PHOSPHORUS 8.2 mg/dL (2.5-4.9); UREA NITROGEN, BLOOD 111 mg/dL (7-18)
[2021-10-19 06:04] LABS: WHITE BLOOD COUNT (AUTO) 39.5 K/uL (4.3-11.0)
[2021-10-19] MEDS: INSULIN REGULAR, HUMAN 100 UNIT/ML 3 ML VIAL SQ PRN ×4 (06:34→23:38)
--- NOTE | 2021-10-19 07:30 | NUR ---
OPENING NOTE: REPORT RECEIVED FROM DELMIS HUSAIN. NO CHANGE IN GTT RATES SINCE LAST NIGHT. PT IS UNRESPONSIVE WITH BLACK SLUDGE TYPE FLUID SUCTIONED FROM BACK OF THROAT. NO COUGH, NO GAG, NO CORNEAL RESPONSE, NOTIFIED DR. DOS SANTOS FOR POSSIBLE EEG ORDER FOR POSSIBLE BRAIN DETERMINATION, AWAITING REPLY. PT IS 1:1 NURSING AND CHECKED ON CONSTANTLY.
[2021-10-19] MEDS: LIPASE/PROTEASE/AMYLASE 1 EACH CAPSULE.DR NG SCH ×3 (08:00→17:29)
[2021-10-19 08:05] LABS: BAND % (MANUAL) 4 % (0.0-5.0); LYMPHOCYTES % (MANUAL) 1 % (16-48); MONOCYTES % (MANUAL) 1 % (0-11.0); NEUTROPHILS % (MANUAL) 94 (42-76)
--- NOTE | 2021-10-19 08:42 | NUR ---
NOTIFIED DR. DIMAS OF H/H OF 7.3/, DROP FROM 8.4/ AND PLT OF 128. PER DR DIMAS OK TO GIVE ELIQUIS AND ASPIRIN TODAY.
--- NOTE | 2021-10-19 09:12 | NUR ---
FENTANYL AND VERSED GTTS STOPPED AT THIS TIME PER DR NAVA TO ASSESS PATIENTS NEURO STATUS.
[2021-10-19 09:19] LABS: ABG BASE EXCESS -4.1 mmol/L; ABG OXYGEN SATURATION 88.3 % (92.0-98.5); ABG PCO2 53.2 mmHg (35.0-45.0); ABG PH 7.254 (7.350-7.450); ABG PO2 62.5 mmHg (75.0-100.0); AaDO2 597.3 mmHg; COHb 0.3 % (0.5-1.5); MetHb 0.2 % (0.0-1.5); O2Hb 87.9 % (94.0-97.0); PEEP,BG 20 cm H2O; SITE, ABG Right Radial; VT, ABG 480 mL
[2021-10-19] MEDS: CEFEPIME 1 GM in IV D5W 50 ML IV SCH ×2 (09:19→22:25)
[2021-10-19] MEDS: PANTOPRAZOLE 40 MG/PACK PACK NG SCH (09:20)
[2021-10-19] MEDS: VORICONAZOLE 200 MG TABLET GT SCH ×2 (09:20→21:41)
[2021-10-19] MEDS: ASPIRIN 81 MG TAB.CHEW NG SCH (09:20)
[2021-10-19] MEDS: MONTELUKAST SODIUM (10MG) 10 MG TABLET NG SCH (09:20)
[2021-10-19] MEDS: ANASTROZOLE 1 MG TABLET NG SCH (09:21)
[2021-10-19] MEDS: APIXABAN 2.5 MG TABLET PO SCH ×2 (09:26→18:02)
[2021-10-19] MEDS: MEROPENEM 500 MG in IV NS 0.9% 50 ML IV SCH ×2 (11:15→23:35)
[2021-10-19] MEDS: Sodium Bicarbonate 100 MEQ in IV D5W 1,000 ML IV PRN (13:15)
--- NOTE | 2021-10-19 17:00 | NUR ---
PER LITA MOSES OK TO USE HD CATH IN RIGHT IJ
--- NOTE | 2021-10-19 19:03 | NUR ---
END OF SHIFT NOTE: DIALYSIS CATHETER INSERTED TODAY IN RIGHT IJ, DIALYSIS ORDERED FOR TONIGHT. FENTANYL AND VERSED STOPPED TODAY, PT IS UNRESPONSIVE. EEG WAS DONE, REPORT IN COMPUTER. RN TALKED TO PT'S NEPHEW KWASI, WANTS PATIENT TO BE FULL CODE OF RIGHT NOW. LEVOPHED TITRATED TO 0.08 MCG/KG/MIN, MARISOL-SYNEPHRINE AND VASOPRESSIN CONTINUE TO INFUSE MAX RATE. 1:1 NURSING, PT CHECKED ON CONSTANTLY BY NURSING STAFF.
--- NOTE | 2021-10-19 19:25 | NUR ---
PARCEL CONTRACTORRACETRACK STEWARD BIT SANDER BREE TALKED TO PT'S BROTHER VINCENT HOOD /NEXT OF KIN, PHONE [phone]/ PT CONDITION & PROGNOSIS WAS UPDATED. FAMILY DECIDED TO CHANGE CODE STATUS FROM FULL TO DNR. D-R NUTHALAPATY WAS NOTIFIED.DNR CODE WAS PLACED IN ORDER & COSIGNED WITH LUKE COOK WHO ALSO PARTICIPATED IN CONVERSATION WITH PT'S FAMILY.
--- NOTE | 2021-10-19 19:50 | NUR ---
RN OPENING NOTE REC'D PT IN BED, PT HAD EKG WITH MD SORIA, NEURO MINIMAL ACTIVITY NOTED. RIJ WAS PLACED, PT IS TO HAVE HD TODAY. PT REMAINS ON SAME VENT SETTINGS, O2 SAT LOW 80S PT HAS PRESENTED WITH. PT IS DNR PER [facility] INTERN. PT IS LYING FLAT TO MAINTAIN BP WNL. PT ON MARISOL, VASO, AND LEVO. IV SITES FLUSHED ASEPTICALLY. BLOOD RETURN NOTED. WILL CONT TO MONITOR CLOSELY.
[2021-10-19] MEDS: NOREPINEPHRINE 32 MG in IV NS 0.9% 218 ML IV PRN (20:01)
--- NOTE | 2021-10-19 20:20 | NUR ---
PT IS RECEIVING DIALYSIS AT THIS TIME, WILL RESUME ABX WHEN FINISHED.
[2021-10-19] MEDS: IV NS 0.9% 250 ML IV PRN (20:35)
--- NOTE | 2021-10-19 22:04 | NUR ---
RN NOTE REPORT GIVEN TO LONNIE RN FOR CONTINUATION OF CARE
[2021-10-19] MEDS: INSULIN GLARGINE, 100 UNIT/ML CARTRIDGE SQ SCH (22:15)
--- NOTE | 2021-10-19 22:35 | NUR ---
PT COMPLETED HD NO FLUID REMOVED, PT STILL ON COMATOSE CONDITION ON ETT/VENT SETTING ORDER FIO2 100% PEEP 20 SPO2 80% MD IS AWARE PT IS DNR STATUS NOW, PT ON MARISOL 3MCG/KG/MIN, VASOPRESSIN @ 0.04 UNITS/MIN AND LEVOPHED @ 0.08 MCG/KG/MIN INFUSING VIA EVELYN PICC, NO SEDATION FOR THIS PT SINCE AM, WILL CONT TO MONITOR
[2021-10-20] VITALS (96 sets, daily range): BP systolic 59–142; BP diastolic 16–75
[2021-10-20] MEDS: VASOPRESSIN INJ 40 UNIT in IV NS 0.9% 38 ML IV PRN ×2 (00:31→17:43)
--- NOTE | 2021-10-20 01:27 | NUR ---
RT NOTE pt received on mechanical vent with current settings. orally intubated. 7.0. vent plugged in to red outlet. ambu bag at bedside. minimal to no secretions suctioned via ett. no sob, no s/s of resp distress noted. will continue to monitor t/o shift.
[2021-10-20] MEDS: PHENYLEPHRINE 100 MG in IV NS 0.9% 240 ML IV PRN ×4 (03:31→20:49)
[2021-10-20] MEDS: Sodium Bicarbonate 100 MEQ in IV D5W 1,000 ML IV PRN ×2 (03:31→19:27)
[2021-10-20] MEDS: BLOOD SUGAR DIAGNOSTIC 1 EACH STRIP IN SCH ×4 (05:37→23:10)
[2021-10-20] MEDS: HYDROCORTISONE SOD SUCCINATE 100 MG/2 ML VIAL IV SCH ×3 (05:37→21:03)
[2021-10-20] MEDS: INSULIN REGULAR, HUMAN 100 UNIT/ML 3 ML VIAL SQ PRN ×4 (05:38→23:11)
[2021-10-20] MEDS ORDERED: HYDROCODONE/APAP 5/325MG TABLET PO PRN (06:30)
--- NOTE | 2021-10-20 07:13 | NUR ---
PT ON BED STILL O COMATOSE CONDITION, NO GAG REFLEX BUT STILL HAVE CORNEAL REFLEX, VENT SETTING PER MD FIO2 100% PEEP 20 SPO2 89% SINUS RHYTHM ON MONITOR WITH OCC PVC'S ON MARISOL @ 3MCG/KG/MIN, VASOPRESSIN @ 0.04 UNITS/MIN AND LEVO @ 0.08 MCG/KG/MIN, EVELYN PICC, CID CATHETER DRAIN 30ML OF VERY DARK TEA COLORED URINE, NO BM, BED ON LOWEST POISTION AND LOCKED SIDE RAILS UP X2 WILL ENDORSED TO AM SHIFT NURSE
--- NOTE | 2021-10-20 07:30 | NUR ---
RN NOTES PT FOUND SEMI FOWLERS POSITION DISPLAYING NO S/S OF DISTRESS, FLACC = 0 AND BILATERAL RISE AND FALL OF THE CHEST OBSERVED. PT DID NOT RESPOND TO CORNEAL REFLEX UPON LIGHT STIMULUS. 200 CC RESIDUAL MEASURED FROM ORAL GTUBE. MIDLINE AND PICC PATIENT AND INTACT. CID CATH BELOW PATIENT DRAINING BY GRAVITY. PT HEMODYMANICALLY UNSTABLE, RN WILL MONITOR AND TREAT THROUGHOUT SHIFT. SAFETY MEASURES IN PLACE, BED LOCKED AND IN LOWEST POSITION, SIDE RAILS UPX2, CALL LIGHT WITHIN REACH, BED ALARM ARMED.
--- NOTE | 2021-10-20 07:55 | NUR ---
RT PATIENT REMAINS ORALLY INTUBATED ON [facility] VENT IN CRITICAL CONDITION. ALARMS CHECKED + AUDIBLE. ANNU BAG AT HOB. Addendum: 10/20/21 at 1714 by XIAO ALCAZAR RT Amended: Links added.
[2021-10-20] MEDS: VORICONAZOLE 200 MG TABLET GT SCH ×2 (08:23→21:02)
[2021-10-20] MEDS: ASPIRIN 81 MG TAB.CHEW NG SCH (08:23)
[2021-10-20] MEDS: LIPASE/PROTEASE/AMYLASE 1 EACH CAPSULE.DR NG SCH (08:23)
[2021-10-20] MEDS: MONTELUKAST SODIUM (10MG) 10 MG TABLET NG SCH (08:23)
[2021-10-20] MEDS: ANASTROZOLE 1 MG TABLET NG SCH (08:23)
[2021-10-20] MEDS: CEFEPIME 1 GM in IV D5W 50 ML IV SCH ×2 (08:24→20:48)
[2021-10-20] MEDS: PANTOPRAZOLE 40 MG/PACK PACK NG SCH (08:24)
[2021-10-20] MEDS: APIXABAN 2.5 MG TABLET PO SCH ×2 (08:25→17:52)
[2021-10-20 08:32] LABS: ABG BASE EXCESS -3.1 mmol/L; ABG OXYGEN SATURATION 83.9 % (92.0-98.5); ABG PCO2 57.8 mmHg (35.0-45.0); ABG PH 7.243 (7.350-7.450); ABG PO2 57.3 mmHg (75.0-100.0); AaDO2 597.9 mmHg; O2Hb 83.9 % (94.0-97.0); SITE, ABG Right Radial
[2021-10-20] MEDS: MEROPENEM 500 MG in IV NS 0.9% 50 ML IV SCH ×2 (11:47→23:10)
[2021-10-20 16:14] LABS: BASOPHILS # (AUTO) 0.1 K/uL (0.0-0.2); BASOPHILS % (AUTO) 0.1 % (0.0-2.0); EOSINOPHILS % (AUTO) 0.1 % (0.0-6.0); HEMATOCRIT 22 % (33-45); HEMOGLOBIN 7.1 g/dL (11.5-14.8); LYMPHOCYTES # (AUTO) 0.6 K/uL (0.8-4.8); LYMPHOCYTES % (AUTO) 1.6 % (20.0-44.0); MEAN CORPUSCULAR HGB CONC 32 g/dl (31.0-36.0); MEAN CORPUSCULAR VOLUME 86 fL (82-100); MONOCYTES # (AUTO) 0.6 K/uL (0.1-1.30); MONOCYTES % (AUTO) 1.3 % (2.0-12.0); NEUTROPHILS % (AUTO) 96.9 % (43.0-81.0); PLATELET COUNT (AUTO) 101 K/uL (150-450); RED BLOOD CELL COUNT(AUTO) 2.57 MIL/uL (4.0-5.2)
[2021-10-20 16:25] LABS: CALCIUM, SERUM 6.2 mg/dL (8.5-10.1); CARBON DIOXIDE 26 mmol/L (21-32); CHLORIDE 96 mmol/L (98-107); CREATININE 3.7 mg/dL (0.6-1.3); GLUCOSE 171 mg/dL (74-106); POTASSIUM 5.1 mmol/L (3.5-5.1); SODIUM SERUM 135 mmol/L (136-145)
[2021-10-20 16:35] LABS: WHITE BLOOD COUNT (AUTO) 41.3 K/uL (4.3-11.0)
[2021-10-20 16:55] LABS: BAND % (MANUAL) 3 % (0.0-5.0); LYMPHOCYTES % (MANUAL) 6 % (16-48); NEUTROPHILS % (MANUAL) 91 (42-76)
[2021-10-20 17:18] LABS: UREA NITROGEN, BLOOD 87 mg/dL (7-18)
--- NOTE | 2021-10-20 18:40 | NUR ---
HD STOPPED, BP DROPPED TO DANGEROUS LEVELS. NO FLUID REMOVED.
--- NOTE | 2021-10-20 19:15 | NUR ---
RN NOTES PT FOUND SEMI FOWLERS POSITION DISPLAYING NO S/S OF DISTRESS, FLACC = 0 AND BILATERAL RISE AND FALL OF THE CHEST OBSERVED. PT DID NOT RESPOND TO CORNEAL REFLEX UPON LIGHT STIMULUS. 100 CC RESIDUAL MEASURED FROM ORAL GTUBE. MIDLINE AND PICC REMOVED AND REPLACED WITH R UA PICC. CID CATH BELOW PATIENT DRAINING BY GRAVITY. SBAR AND REPORT GIVEN TO INTEGRATED CIRCUIT LAYOUT DESIGNER. SAFETY MEASURES IN PLACE, BED LOCKED AND IN LOWEST POSITION, SIDE RAILS UPX2, CALL LIGHT WITHIN REACH, BED ALARM ARMED. PT ENDORSED TO INTEGRATED CIRCUIT LAYOUT DESIGNER FOR PETE.
--- NOTE | 2021-10-20 19:35 | NUR ---
RN OPENING NOTE REC'D PT IN BED. FROM DAY SHIFT REPORT, DIALYSIS NOT COMPLETED, DUE TO BP DROPPING. PT REMAINS ORALLY INTUBATED, ON SAME VENT SETTINGS. O2 SAT IN THE HIGH 70S. NO SECRETIONS WHEN SUCTIONED. PT ON MARISOL, VASO, AND LEVO. DAYSI PICC NOTED, FLUSHED. PORT MONITORING CVP IS OCCLUDED WITH BLOOD. BP HOLDING VIA AUTOMATIC CUFF. MINIMAL TO NO URINE OUTPUT PT HAS PRESENTED WITH. PT ON IV BICARB. WILL CONT TO MONITOR CLOSELY.
[2021-10-20] MEDS: INSULIN GLARGINE, 100 UNIT/ML CARTRIDGE SQ SCH (23:11)
[2021-10-21] VITALS (51 sets, daily range): BP systolic 53–120; BP diastolic 17–80
[2021-10-21] MEDS: PHENYLEPHRINE 100 MG in IV NS 0.9% 240 ML IV PRN ×3 (02:27→20:30)
[2021-10-21] MEDS: HYDROCORTISONE SOD SUCCINATE 100 MG/2 ML VIAL IV SCH ×3 (04:23→21:05)
[2021-10-21] MEDS: IV NS 0.9% 250 ML IV PRN (04:39)
[2021-10-21] MEDS ORDERED: NOREPINEPHRINE 4 MG/4 ML AMPUL IV ONE (04:44)
[2021-10-21] MEDS: NOREPINEPHRINE 32 MG in IV NS 0.9% 218 ML IV PRN ×3 (04:52→20:30)
[2021-10-21] MEDS: INSULIN REGULAR, HUMAN 100 UNIT/ML 3 ML VIAL SQ PRN ×2 (06:27→23:49)
[2021-10-21] MEDS: BLOOD SUGAR DIAGNOSTIC 1 EACH STRIP IN SCH ×3 (06:27→18:14)
--- NOTE | 2021-10-21 06:41 | NUR ---
RN CLOSING NOTE PT BP DROPPE TO 50S TITRATED ORDERED. LEVOPHED IS NOW RUNNING AT 0.7 MCG/KG/MIN BP IS WNL, SBP > 90 ORDERED. MARISOL REMAINS AT 3 MAX AND VASOPRESSIN AT 0.04 MAX. BICARB STILL RUNNING ASA ORDERED. LAST BLOOD SUGAR 125 NO COVERAGE NEEDED. SAFETY MEASURES IN PLACE. WILL ENDORSE TO DAY SHIFT FOR CONTINUATION OF CARE
[2021-10-21 06:57] LABS: BASOPHILS # (AUTO) 0.3 K/uL (0.0-0.2); BASOPHILS % (AUTO) 0.7 % (0.0-2.0); HEMATOCRIT 21 % (33-45); LYMPHOCYTES # (AUTO) 0.7 K/uL (0.8-4.8); LYMPHOCYTES % (AUTO) 1.7 % (20.0-44.0); MEAN CORPUSCULAR HGB CONC 32 g/dl (31.0-36.0); MEAN CORPUSCULAR VOLUME 88 fL (82-100); MONOCYTES # (AUTO) 0.5 K/uL (0.1-1.30); MONOCYTES % (AUTO) 1.3 % (2.0-12.0); NEUTROPHILS # (AUTO) 38.6 K/uL (1.8-8.9); NEUTROPHILS % (AUTO) 96.3 % (43.0-81.0); PLATELET COUNT (AUTO) 89 K/uL (150-450); RED BLOOD CELL COUNT(AUTO) 2.43 MIL/uL (4.0-5.2)
--- NOTE | 2021-10-21 07:26 | NUR ---
RN NOTE PATIENT IS IN BED WITH HOB AT SEMI FOWLERS POSITION. PATIENT IS ON VENT. PATIENT IS COMATOSE. CID CATHETER IS IN PLACE. DAYSI PICC IS PATENT AND INTACT. BED IS LOCKED IN THE LOWEST POSITION, 3 GUARD RAILS RAISED, CALL HEATH WITHIN REACH, AND ALL HOSPITAL SAFETY PRECAUTIONS ARE BEING FOLLOWED. WILL CONTINUE TO MONITOR THROUGHOUT SHIFT.
[2021-10-21 07:53] LABS: HEMOGLOBIN 6.9 g/dL (11.5-14.8); WHITE BLOOD COUNT (AUTO) 40.2 K/uL (4.3-11.0)
[2021-10-21] MEDS: PANTOPRAZOLE 40 MG/PACK PACK NG SCH (08:31)
[2021-10-21] MEDS: MONTELUKAST SODIUM (10MG) 10 MG TABLET NG SCH (08:31)
[2021-10-21] MEDS: VORICONAZOLE 200 MG TABLET GT SCH ×2 (08:32→21:05)
[2021-10-21] MEDS: APIXABAN 2.5 MG TABLET PO SCH ×2 (08:32→17:00)
[2021-10-21] MEDS: CEFEPIME 1 GM in IV D5W 50 ML IV SCH ×2 (08:32→21:05)
[2021-10-21] MEDS: ASPIRIN 81 MG TAB.CHEW NG SCH (08:32)
[2021-10-21] MEDS: ANASTROZOLE 1 MG TABLET NG SCH (08:32)
[2021-10-21 08:53] LABS: CARBON DIOXIDE 24 mmol/L (21-32); CHLORIDE 94 mmol/L (98-107); CREATININE 3.8 mg/dL (0.6-1.3); GLUCOSE 164 mg/dL (74-106); MAGNESIUM 2.3 mg/dL (1.8-2.4); PHOSPHORUS 7.8 mg/dL (2.5-4.9); POTASSIUM 5.2 mmol/L (3.5-5.1); SODIUM SERUM 130 mmol/L (136-145)
[2021-10-21 09:09] LABS: UREA NITROGEN, BLOOD 83 mg/dL (7-18)
[2021-10-21] MEDS: VASOPRESSIN INJ 40 UNIT in IV NS 0.9% 38 ML IV PRN (09:14)
--- NOTE | 2021-10-21 09:46 | NUR ---
RN NOTE NOTIFIED DR. DOS SANTOS OF HGB 6.9 AND WBC 40.
[2021-10-21] MEDS: MEROPENEM 500 MG in IV NS 0.9% 50 ML IV SCH ×2 (10:35→22:27)
[2021-10-21 11:43] LABS: ABG BASE EXCESS -12.6 mmol/L; ABG OXYGEN SATURATION 67.2 % (92.0-98.5); ABG PCO2 67.4 mmHg (35.0-45.0); ABG PH 7.031 (7.350-7.450); ABG PO2 46.4 mmHg (75.0-100.0); AaDO2 599.2 mmHg; COHb 0.6 % (0.5-1.5); MetHb 0.2 % (0.0-1.5); O2Hb 66.7 % (94.0-97.0); PEEP,BG 20 cm H2O; VT, ABG 480 mL
--- NOTE | 2021-10-21 12:20 | NUR ---
RN NOTE HELD INSULIN FOR BLOOD SUGAR OF 109 WITH NO ACTIVE FEEDING.
--- NOTE | 2021-10-21 12:31 | NUR ---
RN NOTE NOTIFIED DR. DOS SANTOS THAT PATIENT IS NOW MAXED OUT ON LEVO, MARISOL , AND VASO WITH CURRENT BP OF 81/55
[2021-10-21] MEDS: Sodium Bicarbonate 100 MEQ in IV D5W 1,000 ML IV PRN (17:19)
--- NOTE | 2021-10-21 18:00 | NUR ---
RN NOTE CALLED [facility]AL X5 IN ATTEMPT FOR IRINEO ROY. NO RESPONSE. WILL ENDORSE.
--- NOTE | 2021-10-21 18:10 | NUR ---
RN NOTE BLOOD SUGAR OF 50 X2. DEXTROSE ADMINISTERED.
[2021-10-21] MEDS: DEXTROSE 50%-WATER 50 ML DISP.SYRIN IV PRN (18:14)
--- NOTE | 2021-10-21 18:44 | NUR ---
RN NOTE BLOOD SUGAR OF 135 POST DEXTROSE
--- NOTE | 2021-10-21 18:51 | NUR ---
RN NOTE PATIENT IS IN BED WITH HOB AT SEMI FOWLERS POSITION. PATIENT IS ON VENT. PATIENT IS COMATOSE. CID CATHETER IS IN PLACE. DAYSI PICC IS PATENT AND INTACT. BED IS LOCKED IN THE LOWEST POSITION, 3 GUARD RAILS RAISED, CALL HEATH WITHIN REACH, AND ALL HOSPITAL SAFETY PRECAUTIONS ARE BEING FOLLOWED. SYSTOLIC BP LESS THAN 90, DR. DOS SANTOS AWARE. WILL ENDORSE TO BATTERY INSTALLER RN.
--- NOTE | 2021-10-21 19:45 | NUR ---
RN OPENING NOTE PT REC'D IN BED, NO CHANGE IN VENT SETTINGS, NO DISTRESS NOTED. O2 SAT 68-70S. PT REMAINS COMATOSE. PT IS S/P 1 UNIT PRBC FOR HGB 6.9. MAX ON PRESSORS, LEVO 1MCG/KG/MIN MARISOL AT 3 MCG/KG/MIN AND VASO AT 0.04 MCG/KG/MIN. STILL WITH BICARB IVF @ 75ML/HR. PT COLD TO TOUCH, AX TEMP 96.8, IRINEO HUGGER APPLIED. CID HAS DARK DROWN OUTPUT. MINIMAL TO NONE. SAFETY MEASURES IN PLACE. WILL CONT TO MONITOR CLOSELY.
[2021-10-21 20:15] LABS: BAND % (MANUAL) 5 % (0.0-5.0); LYMPHOCYTES % (MANUAL) 4 % (16-48); MONOCYTES % (MANUAL) 2 % (0-11.0); NEUTROPHILS % (MANUAL) 89 (42-76)
--- NOTE | 2021-10-21 20:30 | NUR ---
RN NOTE UNABLE TO GET BP READING ON MONITOR. PULSE PRESENT. PT IS VERY EDEMATOUS. MANUAL BP TAKEN, 120/50
--- NOTE | 2021-10-21 22:05 | NUR ---
AX TEMP IS 97.1 MANUAL BP 100/50
[2021-10-21] MEDS: INSULIN GLARGINE, 100 UNIT/ML CARTRIDGE SQ SCH (23:00)
[2021-10-21] MEDS ORDERED: PHENYLEPHRINE 10 MG/ML VIAL ONE (23:59)
[2021-10-22] VITALS (7 sets, daily range): BP systolic 0–110; BP diastolic 0–58
[2021-10-22] MEDS: BLOOD SUGAR DIAGNOSTIC 1 EACH STRIP IN SCH ×2 (00:02→05:50)
--- NOTE | 2021-10-22 00:45 | NUR ---
RN NOTE NOTIFIED DR CAMARILLO OF PT STATUS/CONDITION UNABLE TO GET BP AND O2.
[2021-10-22] MEDS: NOREPINEPHRINE 32 MG in IV NS 0.9% 218 ML IV PRN (00:57)
[2021-10-22] MEDS: VASOPRESSIN INJ 40 UNIT in IV NS 0.9% 38 ML IV PRN (02:08)
[2021-10-22] MEDS: Sodium Bicarbonate 100 MEQ in IV D5W 1,000 ML IV PRN (02:19)
[2021-10-22 04:22] LABS: BASOPHILS # (AUTO) 0.1 K/uL (0.0-0.2); BASOPHILS % (AUTO) 0.3 % (0.0-2.0); EOSINOPHILS % (AUTO) 0.1 % (0.0-6.0); HEMATOCRIT 23 % (33-45); LYMPHOCYTES # (AUTO) 2.5 K/uL (0.8-4.8); LYMPHOCYTES % (AUTO) 7.5 % (20.0-44.0); MEAN CORPUSCULAR HGB CONC 30 g/dl (31.0-36.0); MEAN CORPUSCULAR VOLUME 95 fL (82-100); MONOCYTES # (AUTO) 0.3 K/uL (0.1-1.30); MONOCYTES % (AUTO) 0.9 % (2.0-12.0); NEUTROPHILS # (AUTO) 30.9 K/uL (1.8-8.9); NEUTROPHILS % (AUTO) 91.2 % (43.0-81.0); PLATELET COUNT (AUTO) 86 K/uL (150-450); RED BLOOD CELL COUNT(AUTO) 2.45 MIL/uL (4.0-5.2)
[2021-10-22] MEDS ORDERED: NOREPINEPHRINE 4 MG/4 ML AMPUL IV ONE ×2 (04:33→04:42)
--- NOTE | 2021-10-22 04:35 | NUR ---
RN NOTE MANUAL BP FOR 399 110/58
[2021-10-22 04:40] LABS: HEMOGLOBIN 6.9 g/dL (11.5-14.8); WHITE BLOOD COUNT (AUTO) 33.9 K/uL (4.3-11.0)
[2021-10-22 04:48] LABS: CARBON DIOXIDE 16 mmol/L (21-32); CHLORIDE 93 mmol/L (98-107); CREATININE 4.1 mg/dL (0.6-1.3); GLUCOSE 54 mg/dL (74-106); MAGNESIUM 2.7 mg/dL (1.8-2.4); SODIUM SERUM 131 mmol/L (136-145)
[2021-10-22 04:53] LABS: PHOSPHORUS 11.8 mg/dL (2.5-4.9); POTASSIUM 7.1 mmol/L (3.5-5.1); UREA NITROGEN, BLOOD 93 mg/dL (7-18)
--- NOTE | 2021-10-22 05:10 | NUR ---
RX LEVOPHED FORGOT TO SCAN, MEDICATION WAS MIXED BY DELMIS HUSAIN
[2021-10-22] MEDS: HYDROCORTISONE SOD SUCCINATE 100 MG/2 ML VIAL IV SCH (05:38)
--- NOTE | 2021-10-22 05:40 | NUR ---
RN NOTE NOTIFIED SETTER UP FOR POTASSIUM OF 7.1 ORDERS FOR KAYEXELATE 30GM X 1 REG INSULIN 10UNITS X1 1 AMP SODIUM BICARB 1 AMP CALCIUM GLUCONATE ALBUTEROL NEB X 3 REPEAT K IN 2HOURS
[2021-10-22] MEDS: DEXTROSE 50%-WATER 50 ML DISP.SYRIN IV PRN ×3 (05:50→06:37)
--- NOTE | 2021-10-22 06:15 | NUR ---
RN NOTE @0550 BLOOD SUGAR IS LO ON READER, D50 GIVEN, REASSESSED BLOOD SUGAR IS 41 D50 GIVEN AGAIN, UPON REASSESSMENT, BLOOD SUGAR 90 Addendum: 10/22/21 at 0808 by ELLIE BA RN CORRECTION 96
[2021-10-22 06:30] LABS: BAND % (MANUAL) 3 % (0.0-5.0); LYMPHOCYTES % (MANUAL) 3 % (16-48); MONOCYTES % (MANUAL) 1 % (0-11.0); MYELOCYTES % 1 % (0-0); NEUTROPHILS % (MANUAL) 92 (42-76)
--- NOTE | 2021-10-22 06:50 | NUR ---
RN NOTE PAGED HANDBAG DESIGNER MD CAMARILLO FOR CLARIFICATION ON ORDER, PT HAS INCREASED RESIDUALS, AND LOW BLOOD SUGAR. PAGED X3 NO ANSWER.
--- NOTE | 2021-10-22 07:20 | NUR ---
RN NOTE ENDORSED TO DAY SHIFT RN FOR CONTINUATION OF CARE
--- NOTE | 2021-10-22 07:40 | NUR ---
PHARMACY SALESPERSON OPENING NOTES Patient received on mechanical ventilator and unable to read 02 saturation.Per endorsement manual bp check have been done. On triple pressors levo 1, suad 3 and vasopressin 0.04 units and bicarb drip running at 75 ml/hour. Patient noted with ogtube clamped and residual noted greenish color of 220 cc. Axillary temp noted of 99.2. Patient provided mouth care and turned and repositioned. RIJ hd cath intact. Endorsement received from nurse regarding unable to clarify orders given by MD and to follow up. Will continue to monitor. Call light with in [facility].
--- NOTE | 2021-10-22 08:15 | NUR ---
WOUND CARE CONSULT: REVIEWED CHART, NURSING DOCUMENTATION AND PHOTOS WHICH INDICATE REDNESS/RASH TO BREASTFOLDS AND GROIN FOLDS. PT IS ON NAYANA ISOFLEX LOW AIRLOSS BED. ALL SKIN PROTECTION MEASURES IN PLACE AND DISCUSSED WITH NURSING STAFF. MD IN AGREEMENT WITH PLAN OF CARE.
--- NOTE | 2021-10-22 08:20 | NUR ---
Informed Dr Cisneros that patient's K level previous shift high and noc nurse unable to give ordered meds due to waiting for clarification of orders for kayexalate, insulin,sodium bicarbarb and calcium gluconate. Per Dr Cisneros to discard previous shift orders and do a stat BMP check. Orders noted and carried out.
[2021-10-22] MEDS ORDERED: SODIUM BICARBONATE SYR 50 MEQ/50 ML DISP.SYRIN IV ONE (08:30)
[2021-10-22] MEDS ORDERED: Calcium Gluconate 0.465 MEQ/ML VIAL IV ONE (08:30)
[2021-10-22] MEDS ORDERED: ALBUTEROL HALF STRENGTH 1.25 MG/3 ML VIAL.NEB NEB ONE (08:30)
[2021-10-22] MEDS ORDERED: SODIUM POLYSTYRENE SULF. PWD 15 GM UDC PO ONE (08:30)
[2021-10-22] MEDS ORDERED: INSULIN REGULAR, HUMAN 100 UNIT/ML 10 ML VIAL IV ONE (08:30)
[2021-10-22] MEDS: PHENYLEPHRINE 100 MG in IV NS 0.9% 240 ML IV PRN (08:47)
[2021-10-22] MEDS ORDERED: CLOTRIMAZOLE 1% 15 GM TUBE TP SCH (09:00)
--- NOTE | 2021-10-22 10:13 | NUR ---
RT PATIENT , VENT DISCONTINUED
--- NOTE | 2021-10-22 10:13 | NUR ---
RN NOTE PT DNR STATUS. ASYSTOLIC ON MONITOR AND AUSCULTATION, APNEIC, PUPILS FIXED. PRONOUNCED AT 1013. FAMILY NOTIFIED BY PHONE.
--- NOTE | 2021-10-22 10:25 | NUR ---
Post mortem care provided.
--- NOTE | 2021-10-22 10:40 | NUR ---
Patient at 1013 am and DNR/DNI.Family brother Hasmukh made aware and Called [employer] [phone] referrral number.
[2021-10-22 11:10] LABS: CARBON DIOXIDE 31 mmol/L (21-32); CHLORIDE 92 mmol/L (98-107); CREATININE 4.3 mg/dL (0.6-1.3); GLUCOSE 96 mg/dL (74-106); SODIUM SERUM 128 mmol/L (136-145)
[2021-10-22 11:23] LABS: POTASSIUM 8.4 mmol/L (3.5-5.1)
[2021-10-22 11:24] LABS: CALCIUM, SERUM 5.8 mg/dL (8.5-10.1); UREA NITROGEN, BLOOD 91 mg/dL (7-18)
[2021-10-22] MEDS ORDERED: MEROPENEM 500 MG in IV NS 0.9% 50 ML IV SCH (12:00)
[2021-10-22] MEDS ORDERED: CEFEPIME 1 GM in IV D5W 50 ML IV SCH (12:00)
--- NOTE | 2021-10-22 12:35 | NUR ---
family picked up a necklace, earrings, phone and machine brush maker. Next of kin signed record of .
== END 2021-10-22 13:50 | DRG 720 ==
LOC: ER 11:58 → TELE1 14:50 → MEDSG1 10-05 09:46 → TELE1 10-10 11:52 → ICU 10-12 03:33
PROVIDERS: ADMIT Nurse Practitioner Acute Care; ATTEND Student in an Organized Health Care Education/Training Program
PROC: XW033E5 Introduction of Remdesivir Anti-infective into Peripheral Vein, Percutaneous Approach, New Technology Group 5 (ICD-10-PCS; principal; 2021-10-10)
PROC: XW033H5 Introduction of Tocilizumab into Peripheral Vein, Percutaneous Approach, New Technology Group 5 (ICD-10-PCS; 2021-10-10)
PROC: 05H933Z Insertion of Infusion Device into Right Brachial Vein, Percutaneous Approach (ICD-10-PCS; 2021-10-10)
PROC: 5A1955Z Respiratory Ventilation, Greater than 96 Consecutive Hours (ICD-10-PCS; 2021-10-12)
PROC: 0BH18EZ Insertion of Endotracheal Airway into Trachea, Via Natural or Artificial Opening Endoscopic (ICD-10-PCS; 2021-10-12)
PROC: 02HV33Z Insertion of Infusion Device into Superior Vena Cava, Percutaneous Approach (ICD-10-PCS; 2021-10-13)
PROC: B548ZZA Ultrasonography of Superior Vena Cava, Guidance (ICD-10-PCS; 2021-10-13)
PROC: 5A1D70Z Performance of Urinary Filtration, Intermittent, Less than 6 Hours Per Day (ICD-10-PCS; 2021-10-19)
PROC: 30233N1 Transfusion of Nonautologous Red Blood Cells into Peripheral Vein, Percutaneous Approach (ICD-10-PCS; 2021-10-21)
DX: A41.89 Other specified sepsis (principal); J12.82 Pneumonia due to coronavirus disease 2019; N17.0 Acute kidney failure with tubular necrosis; J96.01 Acute respiratory failure with hypoxia; J96.02 Acute respiratory failure with hypercapnia; J44.0 Chronic obstructive pulmonary disease with (acute) lower respiratory infection; G92.8 Other toxic encephalopathy; R65.21 Severe sepsis with septic shock; U07.1 COVID-19; D68.59 Other primary thrombophilia; Z66 Do not resuscitate; E87.1 Hypo-osmolality and hyponatremia; G90.8 Other disorders of autonomic nervous system; E86.0 Dehydration; K21.9 Gastro-esophageal reflux disease without esophagitis; K46.9 Unspecified abdominal hernia without obstruction or gangrene; Z86.718 Personal history of other venous thrombosis and embolism; Z79.4 Long term (current) use of insulin; Z79.82 Long term (current) use of aspirin; Z79.899 Other long term (current) drug therapy; Z88.8 Allergy status to other drugs, medicaments and biological substances; E66.01 Morbid (severe) obesity due to excess calories; I50.32 Chronic diastolic (congestive) heart failure; I11.0 Hypertensive heart disease with heart failure; I25.10 Atherosclerotic heart disease of native coronary artery without angina pectoris; K59.09 Other constipation; M10.9 Gout, unspecified; M89.9 Disorder of bone, unspecified; J98.11 Atelectasis; N39.0 Urinary tract infection, site not specified; I71.2 Thoracic aortic aneurysm, without rupture; A41.50 Gram-negative sepsis, unspecified; B96.1 Klebsiella pneumoniae [K. pneumoniae] as the cause of diseases classified elsewhere; C50.919 Malignant neoplasm of unspecified site of unspecified female breast; D72.810 Lymphocytopenia; E78.1 Pure hyperglyceridemia; E78.5 Hyperlipidemia, unspecified; E83.39 Other disorders of phosphorus metabolism; E83.42 Hypomagnesemia; E83.51 Hypocalcemia; E87.5 Hyperkalemia; E88.09 Other disorders of plasma-protein metabolism, not elsewhere classified; F03.90 Unspecified dementia, unspecified severity, without behavioral disturbance, psychotic disturbance, mood disturbance, and anxiety; E87.2 Acidosis; Z68.41 Body mass index [BMI] 40.0-44.9, adult; J30.9 Allergic rhinitis, unspecified; G47.33 Obstructive sleep apnea (adult) (pediatric); E27.40 Unspecified adrenocortical insufficiency
CPT/HCPCS: 31720; 36410; 36415; 36569; 36600; 70450-TC; 71045-TC; 71250-TC; 80048-TC; 80053-TC; 80061-TC; 80076-TC; 80202-TC; 81001; 82533; 82550-TC; 82728-TC; 82803-TC; 82962-TC; 83540-TC; 83605-TC; 83615-TC; 83735-TC; 84100-TC; 84155; 84165; 84478-TC; 84484-TC; 85025-TC; 85378-TC; 85610-TC; 85730-TC; 86140-TC; 86706; 86803; 86850-TC; 87040-TC; 87070-TC; 87081-TC; 87086-TC; 87186-TC; 87340; 87806; 87899; 90935-TC; 92526; 92611-TC; 93880-TC; 93970-TC; 94002-TC; 94003-TC; 94640-TC; 94760-TC; 94762-TC; 94799-TC; 95819-TC; 99082-TC; A4216; C1750; C9803; G0378; J0330; J0360; J0692; J1100; J1200; J1630; J1650; J1720; J1815; J1940; J2060; J2185; J2250; J2370; J2543; J2916; J2920; J3010; J3262; J3370; J3475; J3490; J7030; J7040; J7042; J7050; J7060; J7070; J7120; P9016; U0003